=== PATIENT | female | born 1995 | race Hispanic/Latino ===

== ENCOUNTER 2019-09-16 16:09 | Emergency (ER) | payer SELFPAY ==
--- OUTSIDE RECORDS SUMMARY | 2019-09-16 16:14 | XMS REPORT ---
:1995 [facility] Address [address] [place] [address] [address] [place] [address] Care Team Providers Name Role Phone DR MAHESH LUDWIG Unavailable Unavailable DR RISHABH CASE Unavailable Unavailable , DR JOSE Unavailable Unavailable Problems This patient has no known problems. Allergies, Adverse Reactions, Alerts This patient has no known allergies or adverse reactions. Medications This patient has no known medications. Encounters Start End Encounter Admission Attending Care Care Encounter Date/Time Date/Time Type Type Clinicians Facility Department ID 2019-02-14 2019-02-14 [id number] 10:12:00 10:55:00 MAHESH MEDINA 2019-01-23 2019-01-26 Inpatient U [facility] [place] [id number] 20:50:00 13:57:00 BYRAM 2019-01-22 2019-01-22 [facility] [id number] 14:56:00 16:29:00 BYRAM 2019-01-09 2019-01-10 [facility] [id number] 20:53:00 01:17:00 BYRAM 2018-08-07 2018-08-07 Out[facility] [id number] 12:12:00 13:30:00 WASIM Results Test Description Test Time Test Comments Text Results Atomic Results Result Comments CBC (INCLUDES AUTOMATED DIFFERENTIAL)* 2019-01-25 06:57:00 Test Item Value Reference Range Comments WBC (test code=WBC) 16.2 10\S\3/uL 4.5-11.0 RBC (test code=RBC) 3.85 10\S\6/uL 4.30-5.70 HGB (test code=HBG) 8.6 g/dL 12.0-15.5 HCT (test code=HCT) 27.0 % 35.0-44.0 MCV (test code=MCV) 70.1 fL 81.0-99.0 MCH (test code=MCH) 22.3 pg 27.0-31.0 MCHC (test code=MCHC) 31.9 g/dL 32.0-36.0 RDW (test code=RDW) 15.4 % 11.5-14.5 PLT (test code=PLT) 251 10\S\3/uL 130-400 MPV (test code=MPV) 9.9 fL 9.4-12.4 NEUTROP # (test code=NE#) 11.2 10\S\3/uL 1.6-8.0 LYMPH # (test code=LY#) 3.4 10\S\3/uL 1.1-3.5 MONOCYTE # (test code=MO#) 1.1 10\S\3/uL 0.0-1.1 EOSINOPH # (test code=EO#) 0.4 10\S\3/uL 0.0-0.7 BASOPHIL # (test code=BA#) 0.1 10\S\3/uL 0.0-0.3 IG # (test code=IG#) 0.10 10\S\3/uL 0.00-0.06 NRBC # (test code=NRBC#) 0.00 10\S\3/uL 0.00-0.01 NEUTROPH % (test code=NE%) 69.2 % 35.0-73.0 LYMPH % (test code=LY%) 20.9 % 20.0-55.0 MONO % (test code=MO%) 6.6 % 2.5-10.0 EOSINOPH % (test code=EO%) 2.3 % 0.0-5.0 BASOPHIL % (test code=BA%) 0.4 % 0.0-2.0 IG % (test code=IG%) 0.6 % 0.0-0.8 NRBC% (test code=NRBC%) 0.0 % 0.0-0.2 MANDIFF (test code=WMDIFF) NO NO RBC MORPH (test code=WRBCMOR) NORMAL HEPATITIS B SURFACE ANTIGEN *WW*2019-01-24 20:30:00 Test Item Value Reference Range Comments HBSAG (test code=HBSAG) NON-REACTIVE NON-REACTIVE HIV *WW*2019-01-24 20:29:00 Test Item Value Reference Range Comments HIV-1,2 and p24 (test code=CHIV) NON-REACTIVE NON-REACTIVE SYPHILIS SCREENING WW2019-01-24 15:33:00 Test Item Value Reference Range Comments T PALLIDUM AB (test NON-REACTIVE NON-REACTIVE Due to instrument code=SYPHINT) issue, RPR test was performed SYPHC (test RPR test has been code=SYPHC) updated to Treponemal Immunoassay. Interpretation of results is similar DIRECT INFLUENZA A AND B [id number] 22:22:00 Test Item Value Reference Range Comments Direct Exam (test code=DE3) PRESUMPTIVE NEGATIVE FOR THE PRESENCE OF INFLUENZA ANTIGEN URINALYSIS WITH MICRO *WW*2019-01-23 22:18:00 Test Item Value Reference Range Comments COLOR (test code=COLU) YELLOW YELLOW CLARITY (test code=CLA) SLT HAZY CLEAR GLUCOSE UR (test code=UA GLUCOSE) NEGATIVE NEGATIVE BILI UR (test code=BILE) NEGATIVE NEGATIVE KETONES UR (test code=NAHED) NEGATIVE NEGATIVE SP GRAVITY (test code=SPGR) 1.020 1.005-1.030 PH UR (test code=PH) 7.0 4.5-8.0 PROTEIN UR (test code=PU) 1+ NEGATIVE UROBIL UR (test code=UROQ) 1.0 EU/dL 0.2-1.0 NITRITE UR (test code=NITRITE) NEGATIVE NEGATIVE BLOOD UR (test code=UA BLOOD) NEGATIVE NEGATIVE LEUK ES UR (test code=LEUK) NEGATIVE NEGATIVE WBC UR (test code=UWBC) 2 /HPF 0-5 RBC UR (test code=URBC) 1 /HPF 0-2 EPITH UR (test code=UEPC) FEW /LPF FEW BACTERIA UR (test code=UBACT) FEW /HPF NONE CAST UR (test code=CAST) /LPF NONE CRYSTAL UR (test code=CRYU) / LPF NONE MUCUS UR (test code=MUC) / HPF NONE AMORPH UR (test code=PORSCHE) FEW / HPF NONE TRICH UR (test code=UTRICH) /HPF NONE YEAST UR (test code=UY) /HPF NONE SPERM UR (test code=USPERM) /HPF NONE CBC (INCLUDES AUTOMATED DIFFERENTIAL)*[id number] 22:15:00 Test Item Value Reference Range Comments WBC (test code=WBC) 13.5 10\S\3/uL 4.5-11.0 RBC (test code=RBC) 4.30 10\S\6/uL 4.30-5.70 HGB (test code=HBG) 9.7 g/dL 12.0-15.5 HCT (test code=HCT) 29.9 % 35.0-44.0 MCV (test code=MCV) 69.5 fL 81.0-99.0 MCH (test code=MCH) 22.6 pg 27.0-31.0 MCHC (test code=MCHC) 32.4 g/dL 32.0-36.0 RDW (test code=RDW) 15.6 % 11.5-14.5 PLT (test code=PLT) 301 10\S\3/uL 130-400 MPV (test code=MPV) 10.1 fL 9.4-12.4 NEUTROP # (test code=NE#) 9.7 10\S\3/uL 1.6-8.0 LYMPH # (test code=LY#) 2.2 10\S\3/uL 1.1-3.5 MONOCYTE # (test code=MO#) 0.8 10\S\3/uL 0.0-1.1 EOSINOPH # (test code=EO#) 0.7 10\S\3/uL 0.0-0.7 BASOPHIL # (test code=BA#) 0.1 10\S\3/uL 0.0-0.3 IG # (test code=IG#) 0.06 10\S\3/uL 0.00-0.06 NRBC # (test code=NRBC#) 0.00 10\S\3/uL 0.00-0.01 NEUTROPH % (test code=NE%) 71.9 % 35.0-73.0 LYMPH % (test code=LY%) 16.1 % 20.0-55.0 MONO % (test code=MO%) 5.9 % 2.5-10.0 EOSINOPH % (test code=EO%) 5.3 % 0.0-5.0 BASOPHIL % (test code=BA%) 0.4 % 0.0-2.0 IG % (test code=IG%) 0.4 % 0.0-0.8 NRBC% (test code=NRBC%) 0.0 % 0.0-0.2 MANDIFF (test code=WMDIFF) NO NO RBC MORPH (test code=WRBCMOR) NORMAL THROAT [id number] 09:47:00 Test Item Value Reference Range Comments Culture Observations (test NO BETA HEMOLYTIC code=COB1) STREPTOCOCCUS ISOLATED U/S >14 WEEKS *OW*2018-08-07 13:23:28OBSTETRIC ULTRASOUND Location code: [id number] HISTORY: R10.2: PELVIC AND PERINEAL PAINGA by LMP: 14 weeks 3 daysGA by today's US: 15 weeks and 3 daysFindings:There is a single intrauterine in breech presentation. Estimatedfetal heart rate is 163 beats per minute. Amniotic fluidindex is 10.0 cm. Theplacenta is posterior/ fundal with grade 1 changes. Note is made of a 2.5 cmplacental penning[place]. There is no evidence of previa or abruption. The cervix isclosed and measures 3.3 cm. The maternal adnexa are unremarkable. Approximate sonographic age is 15 weeks and 3 days based upon thefollowing:BPD 3.0 cm 15 weeks 3 daysHC 11.3 cm 15 weeks 3 daysAC 9.8 cm 15 weeks 6 daysFL 1.7 cm 15 weeks 0 days ratios are within normal limits. weight estimateWeight: 125 gramsAnatomic survey is limited due to early gestational age. There is no grossabnormality of the intracranial contents, four-chamber heart, stomach, bilateral kidneys, urinary bladder, 3 vessel cord, cord insertion, spine, andextremities.IMPRESSION: 1. Single intrauterine with an approximate sonographic age of 15weeks and 3 days . 2. Limited anatomic survey with no abnormality identified.CHEM8+ i-STAT OW2018-08-07 13:09:00 Test Item Value Reference Range Comments SODIUM (test code=HELLEN) 137 mmol/L 138-146 POTASSIUM (test code=KI) 3.2 mmol/L 3.5-4.9 CHLORIDE (test code=CLI) 100 mmol/L 98-109 CA IONIZED (test code=ICAI) 1.12 mmol/L 1.12-1.32 GLUCOSE (test code=GLUI) 85 mg/dL 75-100 TCO2 (test code=TCO2) 26 mmol/L 24-29 BUN (test code=BUN1) 5 mg/dL 8-26 CREATININE (test code=CREAI) 0.5 mg/dL 0.6-1.3 ANION GAP (test code=GANG) 14.0 mmol/L HGB (test code=MHB) 11.6 g/dL 12.0-17.0 HCT (test code=MHCT) 34.0 % 38.0-51.0 INFLUENZA A AND B OW2018-08-07 13:06:00 Test Item Value Reference Range Comments INFLUENZ A (test code=INFA) NEGATIVE NEGATIVE INFLUENZ B (test code=INFB) NEGATIVE NEGATIVE URINALYSIS W/O MICROSCOPICOW2018-08-07 13:02:00 Test Item Value Reference Range Comments COLOR (test code=COLU) Yellow YELLOW CLARITY (test code=CLA) Clear CLEAR GLUCOSE UR (test code=UA Negative NEGATIVE GLUCOSE) BILI UR (test code=BILE) Negative NEGATIVE KETONES UR (test code=NAHED) Trace NEGATIVE SP GRAVITY (test code=SPGR) 1.025 1.005-1.030 PH UR (test code=PH) 7.0 4.5-8.0 PROTEIN UR (test code=PU) 1+ NEGATIVE NITRITE UR (test Negative NEGATIVE code=NITRITE) UROBIL UR (test code=GUROQ) 1.0 E.U./dL UROBIL UR (test code=GUROQC) UROBILINOGEN REFERENCE RANGE 0.2 - 1.0 EU/dL BLOOD UR (test code=UA Negative NEGATIVE BLOOD) LEUK ES UR (test code=LEUK) Negative NEGATIVE DIRECT STREP GROUP AOW2018-08-07 13:02:00 Test Item Value Reference Range Comments STREP A AG (test code=STREP) NEGATIVE NEGATIVE CBC (INCLUDES AUTOMATED DIFFERENTIAL) *2018-08-07 12:59:00 Test Item Value Reference Range Comments WBC (test code=WBC) 9.1 10\S\3/uL 4.5-11.0 RBC (test code=RBC) 4.22 10\S\6/uL 4.30-5.70 HGB (test code=HBG) 11.9 g/dL 12.0-15.5 HCT (test code=HCT) 35.1 % 35.0-44.0 MCV (test code=MCV) 83.1 fL 81.0-99.0 MCH (test code=MCH) 28.2 pg 27.0-31.0 MCHC (test code=MCHC) 33.9 g/dL 32.0-36.0 RDW (test code=RDW) 15.0 % 11.5-14.5 PLT (test code=PLT) 264 10\S\3/uL 130-400 MPV (test code=OMPV) 7.9 fL 6.2-10.2 NEUTROP # (test code=NE#) 7.4 10\S\3/uL 1.6-8.0 LYMPH # (test code=LY#) 1.2 10\S\3/uL 1.1-3.5 MID # (test code=GMID#) 0.5 10\S\3/uL 0.0-1.1 GRA % (test code=GRA%) 81.2 % 35.0-73.0 LYMPH % (test code=GLY%) 12.9 % 20.0-55.0 MID % (test code=GMID%) 5.9 % 0.0-10.0 CBC (INCLUDES AUTOMATED DIFFERENTIAL)*[id number] 07:14:00 Test Item Value Reference Range Comments WBC (test code=WBC) 17.8 10\S\3/uL 4.5-11.0 RBC (test code=RBC) 4.30 10\S\6/uL 4.30-5.70 HGB (test code=HBG) 9.6 g/dL 12.0-15.5 HCT (test code=HCT) 30.5 % 35.0-44.0 MCV (test code=MCV) 70.9 fL 81.0-99.0 MCH (test code=MCH) 22.3 pg 27.0-31.0 MCHC (test code=MCHC) 31.5 g/dL 32.0-36.0 RDW (test code=RDW) 15.4 % 11.5-14.5 PLT (test code=PLT) 265 10\S\3/uL 130-400 MPV (test code=MPV) 10.2 fL 9.4-12.4 NEUTROP # (test code=NE#) 13.7 10\S\3/uL 1.6-8.0 LYMPH # (test code=LY#) 2.6 10\S\3/uL 1.1-3.5 MONOCYTE # (test code=MO#) 1.3 10\S\3/uL 0.0-1.1 EOSINOPH # (test code=EO#) 0.1 10\S\3/uL 0.0-0.7 BASOPHIL # (test code=BA#) 0.0 10\S\3/uL 0.0-0.3 IG # (test code=IG#) 0.10 10\S\3/uL 0.00-0.06 NRBC # (test code=NRBC#) 0.00 10\S\3/uL 0.00-0.01 NEUTROPH % (test code=NE%) 77.0 % 35.0-73.0 LYMPH % (test code=LY%) 14.4 % 20.0-55.0 MONO % (test code=MO%) 7.2 % 2.5-10.0 EOSINOPH % (test code=EO%) 0.6 % 0.0-5.0 BASOPHIL % (test code=BA%) 0.2 % 0.0-2.0 IG % (test code=IG%) 0.6 % 0.0-0.8 NRBC% (test code=NRBC%) 0.0 % 0.0-0.2 MANDIFF (test code=WMDIFF) NO NO RBC MORPH (test code=WRBCMOR) NORMAL SYPHILIS SCREENING WW2017-03-04 00:04:00 Test Item Value Reference Range Comments T PALLIDIUM AB (test NON-REACTIVE NON-REACTIVE code=SYPHINT) SYPHC (test code=SYPHC) RPR test has been updated to Treponemal Immunoassay. Interpretation of results is similar HIV *WW*2017-03-03 23:53:00 Test Item Value Reference Range Comments HIV-1,2 and P24 (test code=CHIV) NON-REACTIVE NON-REACTIVE HEPATITIS B SURFACE ANTIGEN 2017-03-03 23:24:00 Test Item Value Reference Range Comments HBSAG (test code=HBSAG) NON-REACTIVE NON-REACTIVE URINALYSIS WITH MICRO *WW*2017-03-03 21:37:00 Test Item Value Reference Range Comments COLOR (test code=COLU) YELLOW YELLOW CLARITY (test code=CLA) SLT HAZY CLEAR GLUCOSE UR (test code=UA GLUCOSE) NEGATIVE NEGATIVE BILI UR (test code=BILE) NEGATIVE NEGATIVE KETONES UR (test code=NAHED) NEGATIVE NEGATIVE SP GRAVITY (test code=SPGR) 1.010 1.005-1.030 PH UR (test code=PH) 7.5 4.5-8.0 PROTEIN UR (test code=PU) NEGATIVE NEGATIVE UROBIL UR (test code=UROQ) 0.2 EU/dL 0.2-1.0 NITRITE UR (test code=NITRITE) NEGATIVE NEGATIVE BLOOD UR (test code=UA BLOOD) NEGATIVE NEGATIVE LEUK ES UR (test code=LEUK) 1+ NEGATIVE WBC UR (test code=UWBC) 6 /HPF 0-5 RBC UR (test code=URBC) 0 /HPF 0-2 EPITH UR (test code=UEPC) FEW /LPF FEW BACTERIA UR (test code=UBACT) FEW /HPF NONE CAST UR (test code=CAST) /LPF NONE CRYSTAL UR (test code=CRYU) / LPF NONE MUCUS UR (test code=MUC) / HPF NONE AMORPH UR (test code=PORSCHE) / HPF NONE TRICH UR (test code=UTRICH) /HPF NONE YEAST UR (test code=UY) /HPF NONE SPERM UR (test code=USPERM) /HPF NONE CBC (INCLUDES AUTOMATED DIFFERENTIAL)*[id number] 21:32:00 Test Item Value Reference Range Comments WBC (test code=WBC) 15.4 10\S\3/uL 4.5-11.0 RBC (test code=RBC) 4.32 10\S\6/uL 4.30-5.70 HGB (test code=HBG) 9.8 g/dL 12.0-15.5 HCT (test code=HCT) 30.5 % 35.0-44.0 MCV (test code=MCV) 70.6 fL 81.0-99.0 MCH (test code=MCH) 22.7 pg 27.0-31.0 MCHC (test code=MCHC) 32.1 g/dL 32.0-36.0 RDW (test code=RDW) 15.5 % 11.5-14.5 PLT (test code=PLT) 288 10\S\3/uL 130-400 MPV (test code=MPV) 10.0 fL 9.4-12.4 NEUTROP # (test code=NE#) 11.6 10\S\3/uL 1.6-8.0 LYMPH # (test code=LY#) 2.6 10\S\3/uL 1.1-3.5 MONOCYTE # (test code=MO#) 1.0 10\S\3/uL 0.0-1.1 EOSINOPH # (test code=EO#) 0.2 10\S\3/uL 0.0-0.7 BASOPHIL # (test code=BA#) 0.0 10\S\3/uL 0.0-0.3 IG # (test code=IG#) 0.06 10\S\3/uL 0.00-0.06 NRBC # (test code=NRBC#) 0.00 10\S\3/uL 0.00-0.01 NEUTROPH % (test code=NE%) 75.4 % 35.0-73.0 LYMPH % (test code=LY%) 16.6 % 20.0-55.0 MONO % (test code=MO%) 6.2 % 2.5-10.0 EOSINOPH % (test code=EO%) 1.2 % 0.0-5.0 BASOPHIL % (test code=BA%) 0.2 % 0.0-2.0 IG % (test code=IG%) 0.4 % 0.0-0.8 NRBC% (test code=NRBC%) 0.0 % 0.0-0.2 MANDIFF (test code=WMDIFF) NO NO RBC MORPH (test code=WRBCMOR) NORMAL URINALYSIS *WW*2017-02-18 03:37:00 Test Item Value Reference Range Comments COLOR (test code=COLU) YELLOW YELLOW CLARITY (test code=CLA) CLEAR CLEAR GLUCOSE UR (test code=UA GLUCOSE) NEGATIVE NEGATIVE BILI UR (test code=BILE) NEGATIVE NEGATIVE KETONES UR (test code=NAHED) NEGATIVE NEGATIVE SP GRAVITY (test code=SPGR) 1.020 1.005-1.030 PH UR (test code=PH) 7.0 4.5-8.0 PROTEIN UR (test code=PU) NEGATIVE NEGATIVE UROBIL UR (test code=UROQ) 0.2 EU/dL 0.2-1.0 NITRITE UR (test code=NITRITE) NEGATIVE NEGATIVE BLOOD UR (test code=UA BLOOD) NEGATIVE NEGATIVE LEUK ES UR (test code=LEUK) NEGATIVE NEGATIVE AUAM (test code=WAUAM) NO NO WID-U/S > 14 [id number] 15:29:36OBSTETRIC ULTRASOUND Location code: [id number] HISTORY: Supervision of otherwise normal pregnancyGAby LMP: 34 weeks 1 dayGA by first US: 36 weeks 1 dayGA by today's US: 36 weeks 2 daysFindings:There is a single intrauterine in vertex presentation. Estimatedfetal heart rate is 145 beats per minute. Amniotic fluid index is 22.9 cm. Theplacenta is anterior with grade 1 changes. There is no evidence of previa orabruption. The cervix is closed and measures 3.3 cm. The maternal adnexa areunremarkable. Approximate sonographic age is 36 weeks 2 days based upon the following:BPD 9.1 cm 36 weeks 5 daysHC 33.1 cm 37 weeks 5 daysAC 32.0 cm 36 weeks 0 daysFL 7.1 cm 36 weeks 2 days ratios are within normal limits. weight estimateWeight: 2900gramsWT%: 64% for 36 weeks 1 dayAnatomic survey reveals no abnormality of the intracranial contents,four-chamber heart, stomach, bilateral kidneys, urinary bladder, 3 vessel cord,cord insertion, spine, and extremities.IMPRESSION: 1. Single intrauterine in vertex presentation with an approximatesonographic age of 36 weeks 2 days and estimated due date of . 2. No abnormality identified.U/S >14 [id number] 15 :27:33EXAM: Obstetric Ultrasound CompleteLocation: A1 COMPARISON: NoneINDICATION : anatomy/surveyTECHNIQUE: Real-time sonography was performed transabdominally.DISCUSSION:There is a single living intrauterine fetus in cephalic presentation. Placentais anterior, Grade 1. There is no evidence of placental abruption nor placentaprevia. Cervix is closed, measuring 6 cm length. Amniotic fluid volume isabove the upper limit of normal, with SPENCER of 27.29cm.Maternal adnexa: Not imagedANATOMIC SURVEY:No gross abnormalities of the cranium, spine, mid face,4-chamberheart, stomach bubble, kidneys ,bladder, and 3-vessel cord. The abdominal cordinsertion is not well seen due to shadowing. lips are not imaged. One ofthe kidneys is not well seen secondary to positioning and shadowing. Fetalgender is male. Evaluation of the spine is limited by positioning. heart rate: 154 BPMAverage sonographic age of the fetus is 30 weeks 3 days with LU of 02/25/17based on the following:Biparietal diameter: 7.9cm=31 weeks 5 daysHead circumference: 28.4cm=31 weeks 1 dayAbdominal circumference: 27.2cm=31 weeks 2 daysFemur length : 5.7cm=29 weeks 6 daysFetal ratios are normal. FL/BPD=0.72FL/AC=0.21HC/AC= 1.04CI=0.79Menstrual age by established LU is 28 weeks 3 days.Estimated weight: 1661 grams. weight percentile: There is a 97% based on established LU of 03/15/17.IMPRESSION: 1. Single living intrauterine fetus in cephalic presentation at 30 weeks 3 dayssonographic age. weight is greater than 97th percentile. Polyhydramniosis noted, with SPENCER of 27.29. Follow-up is recommended.2. No anomaly is identified. One of the kidneys is not well seen due toshadowing and positioning. Evaluation of lips and spine and abdominalcord insertion is limited due to shadowing or positioning.3. No evidence for placenta previa nor abruption.
[2019-09-16 16:58] LABS: Urine Blood NEGATIVE (NEG); Urine Glucose NEGATIVE (NEG); Urine Protein 1+ (NEG); Urine Specific Gravity >1.030 (1.005-1.030)
[2019-09-16] MEDS ORDERED: ACETAMINOPHEN 500 MG TAB ONE (17:01)
[2019-09-16 17:11] LABS: Urine Bacteria 20-50 /HPF (<20); Urine Culture Reflex Order REFLEXED; Urine Mucus 2+ /HPF (NONE SEEN); Urine RBC <5 /HPF (NONE SEEN)
--- NOTE | 2019-09-16 17:21 | ER ---
Nurse's Notes [facility] Name: Sonia Abbasi Age: 24 yrs Sex: Female : 1995 Arrival Date: 09/16/2019 Time: 16:21 Bed 17 Private MD: Diagnosis: Influenza due to certain identified influenza viruses Presentation: 09/16 16:22 Presenting complaint: Patient states: body aching really bad, feels like shes running a fever, pain in rib cage that increases with cough since yesterday. Presenting complaint:. Transition of care: patient was not received from another setting of care. Onset of symptoms was September 16, 2019. Risk Assessment: Do you want to hurt yourself or someone else? Patient reports no desire to harm self or others. Initial Sepsis Screen: Does the patient meet any 2 criteria? Temp <36.0*C (96.8*F)) or > 38.3*C (100.9*F). HR > 90 bpm. Yes Does the patient have a suspected source of infection? No. Patient's initial sepsis screen is negative. Care prior to arrival: None. 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 - Social history:: Smoking status: Patient/guardian denies using tobacco, never smoked. - Ebola Screening: : No symptoms or risks identified at this time. Screenin:50 Abuse screen: Denies threats or abuse. Denies injuries from another. Nutritional ca1 screening: No deficits noted. Tuberculosis screening: No symptoms or risk factors identified. Fall Risk None identified. Assessment: 16:50 General: Appears in no apparent distress. comfortable, Behavior is calm, cooperative, ca1 appropriate for age, Reports fever for 12-24 hours. Pain: Complains of pain in all over Pain currently is 7 out of 10 on a pain scale. Neuro: Level of Consciousness is awake, alert, obeys commands, Oriented to person, place, time, situation. Cardiovascular: Heart tones S1 S2 present Capillary refill < 3 seconds Patient's skin is warm and dry. Respiratory: Reports cough that is since last night Airway is patent Respiratory effort is even, unlabored, Respiratory pattern is regular, symmetrical, Breath sounds are clear bilaterally. GI: Abdomen is round non-distended, Bowel sounds present X 4 quads. Abd is soft and non tender X 4 quads. : No deficits noted. No signs and/or symptoms were reported regarding the genitourinary system. EENT: Throat is clear is pink Reports nasal congestion since last night. Derm: Skin is intact, is healthy with good turgor, Skin is pink, warm \T\ dry. Musculoskeletal: Circulation, motion, and sensation intact. Capillary refill < 3 seconds, Range of motion: intact in all extremities. 17:25 Reassessment: Patient appears in no apparent distress at this time. Patient is alert, ca1 oriented x 3, equal unlabored respirations, skin warm/dry/pink. Vital Signs: 16:28 BP 125 / 68; Pulse 128; Resp 20; Temp 103.1(O); Pulse Ox 100% on R/A; vc 17:25 BP 119 / 71; Pulse 119; Resp 19; Temp 101.5(O); Pulse Ox 100% on R/A; ca1 ED Course: 16:21 Patient arrived in ED. vc 16:22 Jam[facility]id [facility]arela [facility]C [facility] la1 16:22 Hai Prather MD is Attending Physician. la1 16:26 Triage completed. vc 16:26 Arm band placed on. vc 16:41 Wandy Lovell, RN is Primary Nurse. ca1 16:50 Patient has correct armband on for positive identification. Bed in low position. Call ca1 light in reach. Side rails up X 1. Pulse ox on. NIBP on. 16:50 No provider procedures requiring assistance completed. Patient did not have IV access ca1 during this emergency room visit. Administered Medications: 17:01 Drug: Tylenol 1000 mg Route: PO; ca1 17:32 Follow up: Response: No adverse reaction; Temperature is decreased ca1 Outcome: 17:21 Discharge ordered by . la1 17:27 Discharged to home ambulatory, with family. ca1 17:27 Condition: stable 17:27 Discharge instructions given to patient, Instructed on discharge instructions, follow up and referral plans. medication usage, Demonstrated understanding of instructions, follow-up care, medications, Prescriptions given X 1. 17:31 Patient left the ED. ca1 Signatures: Jamshid Varela, NOELLE-C FEED RESEARCH AIDE-Cla1 Wandy Lovell RN RN ca1 Silvia Valdez RN RN vc
--- NOTE | 2019-09-16 17:22 | EDPHYS ---
Physician Documentation [facility] Name: Sonia Abbasi Age: 24 yrs Sex: Female : 1995 Arrival Date: 09/16/2019 Time: 16:21 Bed 17 Private MD: ED Physician Hai Prather HPI: 09/16 16:52 This 24 yrs old Female presents to ER via Ambulatory with complaints of Flu la1 Symptoms. 16:52 Onset: The symptoms/episode began/occurred yesterday. Associated signs and symptoms: la1 Pertinent positives: congestion, cough, earache, fever. Modifying factors: The patient symptoms are alleviated by nothing, the patient symptoms are aggravated by nothing. The patient has not experienced similar symptoms in the past. Pt reports onset of fever, congestion, cough since last night. 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 - Social history:: Smoking status: Patient/guardian denies using tobacco, never smoked. - Ebola Screening: : No symptoms or risks identified at this time. ROS: 16:53 Constitutional: + fevers Eyes: Negative for injury, pain, redness, and discharge, ENT: la1 +TITA ear pain Neck: Negative for injury, pain, and swelling, Cardiovascular: Negative for chest pain, palpitations, and edema, Respiratory: + cough Abdomen/GI: Negative for abdominal pain, nausea, vomiting, diarrhea, and constipation, Back: Negative for injury and pain, : Negative for injury, bleeding, discharge, and swelling, Neuro: Negative for headache, weakness, numbness, tingling, and seizure. Exam: 16:54 Constitutional: This is a well developed, well nourished patient who is awake, alert, la1 and in no acute distress. Head/Face: Normocephalic, atraumatic. Eyes: Pupils equal round and reactive to light, extra-ocular motions intact. Periorbital areas with no swelling, redness, or edema. ENT: Nares patent. No nasal discharge, no septal abnormalities noted. Tympanic membranes are normal and external auditory canals are clear. Oropharynx with no redness, swelling, or masses, exudates, or evidence of obstruction, uvula midline. Mucous membranes moist. Neck: Trachea midline, no thyromegaly or masses palpated, + cervical lymphadenopathy. Supple, full range of motion without nuchal rigidity, or vertebral point tenderness. No Meningismus. Chest/axilla: Normal chest wall appearance and motion. Nontender with no deformity. No lesions are appreciated. Cardiovascular: Regular rate and rhythm with a normal S1 and S2. No gallops, murmurs, or rubs. Normal PMI, no JVD. No pulse deficits. Respiratory: Lungs have equal breath sounds bilaterally, clear to auscultation No rales, rhonchi or wheezes noted. No increased work of breathing, no retractions or nasal flaring. Abdomen/GI: Soft, non-tender, with normal bowel sounds. No distension or tympany. No guarding or rebound. No evidence of tenderness throughout. MS/ Extremity: Pulses equal, no cyanosis. Neurovascular intact. Full, normal range of motion. Neuro: Awake and alert, GCS 15, oriented to person, place, time, and situation. Cranial nerves II-XII grossly intact. Motor strength 5/5 in all extremities. Sensory grossly intact. Cerebellar exam normal. Normal gait. Vital Signs: 16:28 BP 125 / 68; Pulse 128; Resp 20; Temp 103.1(O); Pulse Ox 100% on R/A; vc 17:25 BP 119 / 71; Pulse 119; Resp 19; Temp 101.5(O); Pulse Ox 100% on R/A; ca1 MDM: 16:58 Patient medically screened. la1 17:20 Data reviewed: vital signs, nurses notes, lab test result(s), and as a result, I will la1 discharge patient. Data interpreted: Pulse oximetry: on room air is 100 %. Interpretation: normal. Counseling: I had a detailed discussion with the patient and/or guardian regarding: the historical points, exam findings, and any diagnostic results supporting the discharge/admit diagnosis, lab results. 09/16 16:27 Order name: Flu; Complete Time: 17:13 la1 09/16 16:31 Order name: Strep; Complete Time: 17:13 la1 09/16 16:43 Order name: Urine Microscopic Only; Complete Time: 17:13 la1 09/16 16:43 Order name: Urine Microscopic Only bd 09/16 16:46 Order name: Urine Dipstick--Ancillary (enter results); Complete Time: 17:13 bd 09/16 16:46 Order name: Urine --Ancillary (enter results); Complete Time: 17:13 bd 09/16 16:31 Order name: Urine Dipstick-Ancillary (obtain specimen); Complete Time: 16:43 la1 09/16 16:31 Order name: Urine Test (obtain specimen); Complete Time: 16:43 la1 09/16 17:11 Order name: Throat Culture EDMS 09/16 17:13 Order name: Urine Culture EDMS Administered Medications: 17:01 Drug: Tylenol 1000 mg Route: PO; ca1 17:32 Follow up: Response: No adverse reaction; Temperature is decreased ca1 Disposition: 09/17 07:22 Co-signature as Attending Physician, Hai Prather MD. rn Disposition: 09/16/19 17:21 Discharged to Home. Impression: Influenza due to certain identified influenza viruses. - Condition is Stable. - Discharge Instructions: Influenza, Adult. - Prescriptions for Tamiflu 75 mg Oral Capsule - take 1 tablet by ORAL route every 12 hours for 5 days; 10 tablet. - Work release form, Medication Reconciliation Form, Thank You Letter form. - Follow up: Private Physician; When: 2 - 3 days; Reason: Recheck today's complaints, Re-evaluation by your physician. - Problem is new. - Symptoms have improved. Signatures: Dispatcher [employer] EDWA Hai Prather MD MD rn Jamshid Varela, DIRECTOR WORKFORCE MANAGEMENT-C DIRECTOR WORKFORCE MANAGEMENT-Cla1 Wandy Lovell RN RN ca1 Silvia Valdez RN RN vc Corrections: (The following items were deleted from the chart) 09/16 17:31 17:21 09/16/2019 17:21 Discharged to Home. Impression: Influenza due to certain ca1 identified influenza viruses. Condition is Stable. Forms are Medication Reconciliation Form, Thank You Letter, Antibiotic Education, Prescription Opioid Use. Follow up: Private Physician; When: 2 - 3 days; Reason: Recheck today's complaints, Re-evaluation by your physician. Problem is new. Symptoms have improved. la1
[2019-09-16 22:44] VITALS: O2SAT 100
[2019-09-16 22:45] VITALS: BP 119/71; TEMP 101.5
== END 2019-09-16 17:31 | disposition home or self-care (01) ==
LOC: ER 16:09
DX: J10.1 Influenza due to other identified influenza virus with other respiratory manifestations (principal); Z88.1 Allergy status to other antibiotic agents
CPT/HCPCS: 81003; 81015; 81025; 87070; 87081; 87086; 87088; 87804; 99283

== ENCOUNTER 2021-05-19 10:54 | Emergency (ER) | payer OTHER ==
--- OUTSIDE RECORDS SUMMARY | 2021-05-19 10:59 | XMS REPORT | Continuity of Care Document ---
:1995 Author Organization [facility] t Address [address] [place] [address] Care Team Providers Name Role Phone DR OZIEL Attending Clinician Unavailable DR EVIE Attending Clinician Unavailable DR MATHEW Attending Clinician Unavailable DR OZIEL Admitting Clinician Unavailable DR EVEI Admitting Clinician Unavailable DR MATHEW Admitting Clinician Unavailable Problems Condition Condition Condition Status Onset Resolution Last Treating Co mments Source Name Details Category Date Date Treatment Clinician Date 12WKS/VAG Diagnosis Active 2014-02-11 Memoria BLEEDING - 11:51:00 l 00:00: [place] 12WKS/VAG 00 BLEEDING Active 10/20/2013 [place] Obesity Problem Active 2019-01-23 Zach steven complicati 02:45:10 l ng Obesity [place] , complicati second ng trimester , second trimester Active Problem 01/23/2019 [facility] Supervisio Problem Active 2019-01-23 M emoria n of other 02:45:10 l high risk [place] pregnancie Supervisio s, second n of other trimester high risk pregnancie s, second trimester Active Problem 01/23/2019 [facility] Obesity Problem Active 2021-01-14 Zach steven complicati 03:02:37 l ng Obesity [place] , complicati third ng trimester , third trimester Active Problem 01/14/2021 [facility] Supervisio Problem Active 2021-01-14 M emoria n of other 03:02:37 l high risk [place] pregnancie Supervisio s, third n of other trimester high risk pregnancie s, third trimester Active Problem 01/14/2021 [facility] Encounter Problem Active 2017-01-19 Me moria for 02:45:26 l supervisio Kennedy n n of other Encounter normal for , supervisio second n of other trimester normal , second trimester Active Problem 01/19/2017 [facility] Allergies, Adverse Reactions, Alerts This patient has no known allergies or adverse reactions. Medications Ordered Filled Start Stop Current Ordering Indication Dosage Frequency Signature Comments Components Source Medication Medication Date Date Medication? Clinician (SIG) Name Name Erika Carmona Yes Bianca 1 tablet M emoria 3-29 Evie l 00:00: [place] 00 1 Yes 0 Memoria oral 10-20 Refill(s) l capsule 08:32: [place] 00 Saline No Amber 5 mL, Memoria Flush 0.9% 10-20 [place] Route: l 07:31: IVP, Drug Form: INJ, Dosing Weight 65.909, kg, PRN, PRN Line Flush, Start date: 10/20/13 1:31:00, Duration: 30 day, Stop date: 11/19/13 1:30:00([facility] as: BD Posiflush) Vital Signs Vital Name Observation Time Observation Value Comments Source Respitory Rate 2013-10-20 09:40:00 Memori al [place] Heart Rate 2013-10-20 09:40:00 [facility] [place] Temperature Oral (F) 2013-10-20 09:40:00 98.3 F [facility] [place] Diastolic (mm Hg) 2013-10-20 09:40:00 Mem orial [place] Systolic (mm Hg) 2013-10-20 09:40:00 Zach rial [place] Weight 2013-10-20 07:18:00 [facility] [place] Temperature Oral (F) 2013-10-20 07:18:00 98.2 F [facility] [place] Respitory Rate 2013-10-20 07:18:00 Memori al [place] Systolic (mm Hg) 2013-10-20 07:18:00 Zach rial [place] Heart Rate 2013-10-20 07:18:00 [facility] [place] Diastolic (mm Hg) 2013-10-20 07:18:00 Mem orial [place] Procedures This patient has no known procedures. Encounters Start End Encounter Admission Attending Care Care Encounter Source Date/Time Date/Time Type Type Clinicians Facility Department ID 2019-03-04 2019-03-04 Outpatient Sera Black [id number] [facility] 12:37:00 12:37:00 Fagbohun Fagbohun MD a lWorks MD PhD PA PhD PA 2019-02-14 2019-02-14 Emergency E OZIEL [facility] [id number] 10:12:00 10:55:00 [facility] 2019-01-23 2019-01-26 Inpatient U EVIE [facility] [place] [id number] 20:50:00 13:57:00 [facility] 2019-01-24 2019-01-24 Outpatient C Funsho C [place] [id number] e[facility]inic 15:03:00 15:03:00 Anderson Jefferson MD PhD PA PhD PA 2019-01-23 2019-01-23 Outpatient C Funsho C [place] [id number] [facility]inic 12:26:00 12:26:00 Anderson Jefferson MD PhD PA PhD PA 2019-01-22 2019-01-22 Outpatient Sera CASE [facility] [place] [id number] 14:56:00 16:29:00 [facility] 2019-01-22 2019-01-22 Outpatient C Funsho C [place] [id number] eClinic 09:40:00 09:40:00 Anderson Jefferson MD PhD PA PhD PA 2019-01-09 2019-01-10 Outpatient Bibi CASE [facility] [place] [id number] 20:53:00 01:17:00 [facility] 2018-09-05 2018-09-05 Outpatient C Funsho C [place] [id number] [facility]inic 11:01:00 11:01:00 Anderson Jefferson MD PhD PA PhD PA 2018-08-07 2018-08-07 Outpatient Bibi CARMONA [facility] [id number] 12:12:00 13:30:00 [facility] 2017-01-11 2017-01-11 Outpatient C Funsho C [place] [id number] eClinic 11:23:00 11:23:00 Anderson Jefferson MD PhD PA PhD PA 2017-01-06 2017-01-06 Outpatient C Funsho C [place] [id number] [facility]Clinic 10:31:00 10:31:00 Anderson Jefferson MD PhD PA PhD PA 2016-12-30 2016-12-30 Outpatient Sera Black [id number] [facility]Clinic 09:37:00 09:37:00 Anderson Jefferson MD PhD PA PhD PA 2013-10-20 2013-10-20 Outpatient [facility] [id number] [facility] 01:11:00 03:41:00 [place] Everson 00 l [place] Andreea [place] Results Test Description Test Time Test Comments Results Result Comments Source CBC (INCLUDES AUTOMATED DIFFERENTIAL)*WW 2019-01-25 06:57:00 Test Item Value Reference Range Interpretation Comme nts WBC (test code = WBC) 16.2 10\S\3/uL 4.5-11.0 H RBC (test code = RBC) 3.85 10\S\6/uL 4.30-5.70 L HGB (test code = HBG) 8.6 g/dL 12.0-15.5 L HCT (test code = HCT) 27.0 % 35.0-44.0 L MCV (test code = MCV) 70.1 fL 81.0-99.0 L MCH (test code = MCH) 22.3 pg 27.0-31.0 L MCHC (test code = MCHC) 31.9 g/dL 32.0-36.0 L RDW (test code = RDW) 15.4 % 11.5-14.5 H PLT (test code = PLT) 251 10\S\3/uL 130-400 MPV (test code = MPV) 9.9 fL 9.4-12.4 NEUTROP # (test code = NE#) 11.2 10\S\3/uL 1.6-8.0 H LYMPH # (test code = LY#) 3.4 10\S\3/uL 1.1-3.5 MONOCYTE # (test code = MO#) 1.1 10\S\3/uL 0.0-1.1 EOSINOPH # (test code = EO#) 0.4 10\S\3/uL 0.0-0.7 BASOPHIL # (test code = BA#) 0.1 10\S\3/uL 0.0-0.3 IG # (test code = IG#) 0.10 10\S\3/uL 0.00-0.06 H NRBC # (test code = NRBC#) 0.00 10\S\3/uL 0.00-0.01 NEUTROPH % (test code = NE%) 69.2 % 35.0-73.0 LYMPH % (test code = LY%) 20.9 % 20.0-55.0 MONO % (test code = MO%) 6.6 % 2.5-10.0 EOSINOPH % (test code = EO%) 2.3 % 0.0-5.0 BASOPHIL % (test code = BA%) 0.4 % 0.0-2.0 IG % (test code = IG%) 0.6 % 0.0-0.8 NRBC% (test code = NRBC%) 0.0 % 0.0-0.2 MANDIFF (test code = WMDIFF) NO NO RBC MORPH (test code = WRBCMOR) NORMAL HEPATITIS B SURFACE ANTIGEN *WW*2019-01-24 20:30:00 Test Item Value Reference Range Interpretation Comments HBSAG (test code = HBSAG) NON-REACTIVE NON-REACTIVE HIV *WW*2019-01-24 20:29:00 Test Item Value Reference Range Interpretation Comments HIV-1,2 and p24 (test code = NON-REACTIVE NON-REACTIVE CHIV) SYPHILIS SCREENING WW2019-01-24 15:33:00 Test Item Value Reference Range Interpretation Comments T PALLIDUM AB NON-REACTIVE NON-REACTIVE Due to instrum ent (test code = issue, RPR test SYPHINT) was performed SYPHC (test code RPR test has been = SYPHC) updated to Treponemal Immunoassay. Interpretation of results is similar DIRECT INFLUENZA A AND B [id number] 22:22:00 Test Item Value Reference Range Interpretation Comments Direct Exam (test PRESUMPTIVE NEGATIVE FOR code = DE3) THE PRESENCE OF INFLUENZA ANTIGEN URINALYSIS WITH MICRO *WW*2019-01-23 22:18:00 Test Item Value Reference Range Interpretation Comments COLOR (test code = COLU) YELLOW YELLOW CLARITY (test code = CLA) SLT HAZY CLEAR A GLUCOSE UR (test code = UA GLUCOSE) NEGATIVE NEGATIVE BILI UR (test code = BILE) NEGATIVE NEGATIVE KETONES UR (test code = NAHED) NEGATIVE NEGATIVE SP GRAVITY (test code = SPGR) 1.020 1.005-1.030 PH UR (test code = PH) 7.0 4.5-8.0 PROTEIN UR (test code = PU) 1+ NEGATIVE A UROBIL UR (test code = UROQ) 1.0 EU/dL 0.2-1.0 NITRITE UR (test code = NITRITE) NEGATIVE NEGATIVE BLOOD UR (test code = UA BLOOD) NEGATIVE NEGATIVE LEUK ES UR (test code = LEUK) NEGATIVE NEGATIVE WBC UR (test code = UWBC) 2 /HPF 0-5 RBC UR (test code = URBC) 1 /HPF 0-2 EPITH UR (test code = UEPC) FEW /LPF FEW BACTERIA UR (test code = UBACT) FEW /HPF NONE A CAST UR (test code = CAST) /LPF NONE CRYSTAL UR (test code = CRYU) / LPF NONE MUCUS UR (test code = MUC) / HPF NONE AMORPH UR (test code = PORSCHE) FEW / HPF NONE A TRICH UR (test code = UTRICH) /HPF NONE YEAST UR (test code = UY) /HPF NONE SPERM UR (test code = USPERM) /HPF NONE CBC (INCLUDES AUTOMATED DIFFERENTIAL)*[id number] 22:15:00 Test Item Value Reference Range Interpretation Comments WBC (test code = WBC) 13.5 10\S\3/uL 4.5-11.0 H RBC (test code = RBC) 4.30 10\S\6/uL 4.30-5.70 HGB (test code = HBG) 9.7 g/dL 12.0-15.5 L HCT (test code = HCT) 29.9 % 35.0-44.0 L MCV (test code = MCV) 69.5 fL 81.0-99.0 L MCH (test code = MCH) 22.6 pg 27.0-31.0 L MCHC (test code = MCHC) 32.4 g/dL 32.0-36.0 RDW (test code = RDW) 15.6 % 11.5-14.5 H PLT (test code = PLT) 301 10\S\3/uL 130-400 MPV (test code = MPV) 10.1 fL 9.4-12.4 NEUTROP # (test code = NE#) 9.7 10\S\3/uL 1.6-8.0 H LYMPH # (test code = LY#) 2.2 10\S\3/uL 1.1-3.5 MONOCYTE # (test code = MO#) 0.8 10\S\3/uL 0.0-1.1 EOSINOPH # (test code = EO#) 0.7 10\S\3/uL 0.0-0.7 BASOPHIL # (test code = BA#) 0.1 10\S\3/uL 0.0-0.3 IG # (test code = IG#) 0.06 10\S\3/uL 0.00-0.06 NRBC # (test code = NRBC#) 0.00 10\S\3/uL 0.00-0.01 NEUTROPH % (test code = NE%) 71.9 % 35.0-73.0 LYMPH % (test code = LY%) 16.1 % 20.0-55.0 L MONO % (test code = MO%) 5.9 % 2.5-10.0 EOSINOPH % (test code = EO%) 5.3 % 0.0-5.0 H BASOPHIL % (test code = BA%) 0.4 % 0.0-2.0 IG % (test code = IG%) 0.4 % 0.0-0.8 NRBC% (test code = NRBC%) 0.0 % 0.0-0.2 MANDIFF (test code = WMDIFF) NO NO RBC MORPH (test code = NORMAL WRBCMOR) THROAT [id number] 09:47:00 Test Item Value Reference Range Interpretation Comments Culture Observations NO BETA HEMOLYTIC (test code = COB1) STREPTOCOCCUS ISOLATED U/S >14 WEEKS *OW*2018-08-07 13:23:28OBSTETRIC ULTRASOUND Location code: [id number] HISTORY: R10.2: PELVIC AND PERINEAL PAINGA by LMP: 14 weeks 3 daysGA by today's US: 15 weeks and 3 daysFindings:There is a single intrauterine in breech presentation. Estimatedfetal heart rate is 163 beats per minute. Amniotic fluidindex is 10.0 cm. Theplacenta is posterior/fundal with grade 1 changes. Note is made [...] grossabnormality of the intracranial contents, four-chamber heart, stomach,bilateral kidneys, urinary bladder, 3 vessel cord, cord insertion, spine, andextremities.IMPRESSION: 1. Single intrauterine with an a pproximate sonographic age of 15weeks and 3 days . 2. Limited anatomic survey with no abnormality identified.CHEM8+ i-STAT OW2018-08-07 13:09:00 Test Item Value Reference Range Interpretation Comments SODIUM (test code = HELLEN) 137 mmol/L 138-146 L POTASSIUM (test code = KI) 3.2 mmol/L 3.5-4.9 L CHLORIDE (test code = CLI) 100 mmol/L 98-109 CA IONIZED (test code = ICAI) 1.12 mmol/L 1.12-1.32 GLUCOSE (test code = GLUI) 85 mg/dL 75-100 TCO2 (test code = TCO2) 26 mmol/L 24-29 BUN (test code = BUN1) 5 mg/dL 8-26 L CREATININE (test code = CREAI) 0.5 mg/dL 0.6-1.3 L ANION GAP (test code = GANG) 14.0 mmol/L HGB (test code = MHB) 11.6 g/dL 12.0-17.0 L HCT (test code = MHCT) 34.0 % 38.0-51.0 L INFLUENZA A AND B OW2018-08-07 13:06:00 Test Item Value Reference Range Interpretation Comments INFLUENZ A (test code = INFA) NEGATIVE NEGATIVE INFLUENZ B (test code = INFB) NEGATIVE NEGATIVE URINALYSIS W/O MICROSCOPICOW2018-08-07 13:02:00 Test Item Value Reference Range Interpretation Comments COLOR (test code = Yellow YELLOW COLU) CLARITY (test code = Clear CLEAR CLA) GLUCOSE UR (test Negative NEGATIVE code = UA GLUCOSE) BILI UR (test code = Negative NEGATIVE BILE) KETONES UR (test Trace NEGATIVE code = NAHED) SP GRAVITY (test 1.025 1.005-1.030 code = SPGR) PH UR (test code = 7.0 4.5-8.0 PH) PROTEIN UR (test 1+ NEGATIVE A code = PU) NITRITE UR (test Negative NEGATIVE code = NITRITE) UROBIL UR (test code 1.0 E.U./dL = GUROQ) UROBIL UR (test code UROBILINOGEN = GUROQC) REFERENCE RANGE 0.2 - 1.0 EU/dL BLOOD UR (test code Negative NEGATIVE = UA BLOOD) LEUK ES UR (test Negative NEGATIVE code = LEUK) DIRECT STREP GROUP AOW2018-08-07 13:02:00 Test Item Value Reference Range Interpretation Comments STREP A AG (test code = STREP) NEGATIVE NEGATIVE CBC (INCLUDES AUTOMATED DIFFERENTIAL) *2018-08-07 12:59:00 Test Item Value Reference Range Interpretation Comments WBC (test code = WBC) 9.1 10\S\3/uL 4.5-11.0 RBC (test code = RBC) 4.22 10\S\6/uL 4.30-5.70 L HGB (test code = HBG) 11.9 g/dL 12.0-15.5 L HCT (test code = HCT) 35.1 % 35.0-44.0 MCV (test code = MCV) 83.1 fL 81.0-99.0 MCH (test code = MCH) 28.2 pg 27.0-31.0 MCHC (test code = MCHC) 33.9 g/dL 32.0-36.0 RDW (test code = RDW) 15.0 % 11.5-14.5 H PLT (test code = PLT) 264 10\S\3/uL 130-400 MPV (test code = OMPV) 7.9 fL 6.2-10.2 NEUTROP # (test code = NE#) 7.4 10\S\3/uL 1.6-8.0 LYMPH # (test code = LY#) 1.2 10\S\3/uL 1.1-3.5 MID # (test code = GMID#) 0.5 10\S\3/uL 0.0-1.1 GRA % (test code = GRA%) 81.2 % 35.0-73.0 H LYMPH % (test code = GLY%) 12.9 % 20.0-55.0 L MID % (test code = GMID%) 5.9 % 0.0-10.0 CBC (INCLUDES AUTOMATED DIFFERENTIAL)*[id number] 07:14:00 Test Item Value Reference Range Interpretation Comments WBC (test code = WBC) 17.8 10\S\3/uL 4.5-11.0 H RBC (test code = RBC) 4.30 10\S\6/uL 4.30-5.70 HGB (test code = HBG) 9.6 g/dL 12.0-15.5 L HCT (test code = HCT) 30.5 % 35.0-44.0 L MCV (test code = MCV) 70.9 fL 81.0-99.0 L MCH (test code = MCH) 22.3 pg 27.0-31.0 L MCHC (test code = MCHC) 31.5 g/dL 32.0-36.0 L RDW (test code = RDW) 15.4 % 11.5-14.5 H PLT (test code = PLT) 265 10\S\3/uL 130-400 MPV (test code = MPV) 10.2 fL 9.4-12.4 NEUTROP # (test code = NE#) 13.7 10\S\3/uL 1.6-8.0 H LYMPH # (test code = LY#) 2.6 10\S\3/uL 1.1-3.5 MONOCYTE # (test code = MO#) 1.3 10\S\3/uL 0.0-1.1 H EOSINOPH # (test code = EO#) 0.1 10\S\3/uL 0.0-0.7 BASOPHIL # (test code = BA#) 0.0 10\S\3/uL 0.0-0.3 IG # (test code = IG#) 0.10 10\S\3/uL 0.00-0.06 H NRBC # (test code = NRBC#) 0.00 10\S\3/uL 0.00-0.01 NEUTROPH % (test code = NE%) 77.0 % 35.0-73.0 H LYMPH % (test code = LY%) 14.4 % 20.0-55.0 L MONO % (test code = MO%) 7.2 % 2.5-10.0 EOSINOPH % (test code = EO%) 0.6 % 0.0-5.0 BASOPHIL % (test code = BA%) 0.2 % 0.0-2.0 IG % (test code = IG%) 0.6 % 0.0-0.8 NRBC% (test code = NRBC%) 0.0 % 0.0-0.2 MANDIFF (test code = WMDIFF) NO NO RBC MORPH (test code = NORMAL WRBCMOR) SYPHILIS SCREENING WW2017-03-04 00:04:00 Test Item Value Reference Range Interpretation Comments T PALLIDIUM AB (test NON-REACTIVE NON-REACTIVE code = SYPHINT) SYPHC (test code = RPR test has been SYPHC) updated to Treponemal Immunoassay. Interpretation of results is similar HIV *WW*2017-03-03 23:53:00 Test Item Value Reference Range Interpretation Comments HIV-1,2 and P24 (test code = NON-REACTIVE NON-REACTIVE CHIV) HEPATITIS B SURFACE ANTIGEN *WW*2017-03-03 23:24:00 Test Item Value Reference Range Interpretation Comments HBSAG (test code = HBSAG) NON-REACTIVE NON-REACTIVE URINALYSIS WITH MICRO *WW*2017-03-03 21:37:00 Test Item Value Reference Range Interpretation Comments COLOR (test code = COLU) YELLOW YELLOW CLARITY (test code = CLA) SLT HAZY CLEAR A GLUCOSE UR (test code = UA GLUCOSE) NEGATIVE NEGATIVE BILI UR (test code = BILE) NEGATIVE NEGATIVE KETONES UR (test code = NAHED) NEGATIVE NEGATIVE SP GRAVITY (test code = SPGR) 1.010 1.005-1.030 PH UR (test code = PH) 7.5 4.5-8.0 PROTEIN UR (test code = PU) NEGATIVE NEGATIVE UROBIL UR (test code = UROQ) 0.2 EU/dL 0.2-1.0 NITRITE UR (test code = NITRITE) NEGATIVE NEGATIVE BLOOD UR (test code = UA BLOOD) NEGATIVE NEGATIVE LEUK ES UR (test code = LEUK) 1+ NEGATIVE A WBC UR (test code = UWBC) 6 /HPF 0-5 H RBC UR (test code = URBC) 0 /HPF 0-2 EPITH UR (test code = UEPC) FEW /LPF FEW BACTERIA UR (test code = UBACT) FEW /HPF NONE A CAST UR (test code = CAST) /LPF NONE CRYSTAL UR (test code = CRYU) / LPF NONE MUCUS UR (test code = MUC) / HPF NONE AMORPH UR (test code = PORSCHE) / HPF NONE TRICH UR (test code = UTRICH) /HPF NONE YEAST UR (test code = UY) /HPF NONE SPERM UR (test code = USPERM) /HPF NONE CBC (INCLUDES AUTOMATED DIFFERENTIAL)*[id number] 21:32:00 Test Item Value Reference Range Interpretation Comments WBC (test code = WBC) 15.4 10\S\3/uL 4.5-11.0 H RBC (test code = RBC) 4.32 10\S\6/uL 4.30-5.70 HGB (test code = HBG) 9.8 g/dL 12.0-15.5 L HCT (test code = HCT) 30.5 % 35.0-44.0 L MCV (test code = MCV) 70.6 fL 81.0-99.0 L MCH (test code = MCH) 22.7 pg 27.0-31.0 L MCHC (test code = MCHC) 32.1 g/dL 32.0-36.0 RDW (test code = RDW) 15.5 % 11.5-14.5 H PLT (test code = PLT) 288 10\S\3/uL 130-400 MPV (test code = MPV) 10.0 fL 9.4-12.4 NEUTROP # (test code = NE#) 11.6 10\S\3/uL 1.6-8.0 H LYMPH # (test code = LY#) 2.6 10\S\3/uL 1.1-3.5 MONOCYTE # (test code = MO#) 1.0 10\S\3/uL 0.0-1.1 EOSINOPH # (test code = EO#) 0.2 10\S\3/uL 0.0-0.7 BASOPHIL # (test code = BA#) 0.0 10\S\3/uL 0.0-0.3 IG # (test code = IG#) 0.06 10\S\3/uL 0.00-0.06 NRBC # (test code = NRBC#) 0.00 10\S\3/uL 0.00-0.01 NEUTROPH % (test code = NE%) 75.4 % 35.0-73.0 H LYMPH % (test code = LY%) 16.6 % 20.0-55.0 L MONO % (test code = MO%) 6.2 % 2.5-10.0 EOSINOPH % (test code = EO%) 1.2 % 0.0-5.0 BASOPHIL % (test code = BA%) 0.2 % 0.0-2.0 IG % (test code = IG%) 0.4 % 0.0-0.8 NRBC% (test code = NRBC%) 0.0 % 0.0-0.2 MANDIFF (test code = WMDIFF) NO NO RBC MORPH (test code = NORMAL WRBCMOR) URINALYSIS *WW*2017-02-18 03:37:00 Test Item Value Reference Range Interpretation Comments COLOR (test code = COLU) YELLOW YELLOW CLARITY (test code = CLA) CLEAR CLEAR GLUCOSE UR (test code = UA GLUCOSE) NEGATIVE NEGATIVE BILI UR (test code = BILE) NEGATIVE NEGATIVE KETONES UR (test code = NAHED) NEGATIVE NEGATIVE SP GRAVITY (test code = SPGR) 1.020 1.005-1.030 PH UR (test code = PH) 7.0 4.5-8.0 PROTEIN UR (test code = PU) NEGATIVE NEGATIVE UROBIL UR (test code = UROQ) 0.2 EU/dL 0.2-1.0 NITRITE UR (test code = NITRITE) NEGATIVE NEGATIVE BLOOD UR (test code = UA BLOOD) NEGATIVE NEGATIVE LEUK ES UR (test code = LEUK) NEGATIVE NEGATIVE AUAM (test code = WAUAM) NO NO WID-U/S > 14 [id number] 15:29:36OBSTETRIC ULTRASOUND Location code: [id number] HISTORY: Supervision of otherwise normal pregnancyGAby LMP: [...] Single intrauterine in vertex presentation with an ap proximatesonographic age of 36 weeks 2 days and estimated due date of 03/01/17. 2. No abnormality identified.U/S >14 [id number] 15:27:33EXAM: Obstetric Ultrasound CompleteLocation: A1 COMPARISON: NoneINDICATION: anatomy/surveyTECHNIQUE: Real-time sonography was performed transabdominally.DISCUSSION:There is a single living intrauterine fetus in cephalic presentation. Placentais anterior, Grade 1. There is no evidence of placental abruption nor placentaprevia. Cervix is closed, measuring 6 cm length. Amniotic fluid volume isabove the upper limit of normal, with SPENCER of 27.29cm.Maternal adnexa: Not imagedANATOMIC SURVEY:No gross abnormalities of the cranium, spine, mid face,4-chamberheart, stomach bubble, kidneys,bladder, and 3-vessel cord. The abdominal cordinsertion is not well seen due to shadowing. lips are not imaged. One ofthe kidneys is not well seen secondary to positioning and shadowing. Fetalgender is male. Evaluation of the spine is limited by positioning. heart rate: 154 BPMAverage sonographic age of the fetus is 30 weeks 3 days with LU of 02/25/17based on the following:Biparietal diameter: 7.9cm = 31 weeks 5 daysHead circumference: 28.4cm = 31 weeks 1 dayAbdominal circumference: 27.2cm = 31 weeks 2 daysFemur length: 5.7cm = 29 weeks 6 daysFetal ratios are normal. FL/BPD = 0.72FL/AC = 0.21HC/AC = 1.04CI = 0.79Menstrual age by established LU is 28 weeks 3 days.Estimated weight: 1661 grams. weight percentile: There is a 97% based on established LU of 03/15/17.IMPRESSION: 1. Single living intrauterine fetus in cephalic presentation at 30 weeks 3 dayssonographic age. weight is greater than 97th percentile. Polyhydramniosis noted, with SPENCER of 27.29. Follow-upis recommended.2. No anomaly is identified. One of the kidneys is not well seen due toshadowing and positioning. Evaluation of lips and spine and abdominalcord insertion is limited due to shadowing or positioning.3. No evidence for placenta previa nor abruption.[id number] 07:30:0027 [facility] [id number] 07:30:008.9[facility]annCHEMISTRY 2013-10-20 07:30:86324Osudkisf UgkswfgWRMMTXKHP5304-83-09 07:30:003.5[facility] [id number] 07:30:0046[facility] OncglieFFSDGDGBT9440-21-24 07:30:0020[facility] [id number] 07:30:0062[facility] [place] [id number] 07:30:000.2[facility] [id number] 07:30:003.6 [facility] [id number] 07:30:47804Zfqclssu HermannCHEMISTRY 2013-10-20 07:30:0010[facility] EppqsswNOCNQSTFC6810-22-10 07:30:000.6[facility] [id number] 07:30:0087[facility] [id number] 07:30:0017[facility] GiebehfWRBUVHCZA1403-93-64 07:30:004.7[facility] LTQRYQGDF4505-62-32 07:30:000.7[facility] QtpdofuHQXPORBFY7875-10-24 07:30:0012.6 [facility] KqvpoagBNSRKVSOCO1919-01-51 07:30:0013.2[facility] HermannHEMATOLOGY 2013-10-20 07:30:007.9[facility] PdwcmzqAEICCMIFPJ9897-74-51 07:30:36430Rsujuvdg LsjjwcgKUZTCYCCIG7425-98-10 07:30:00 Test Item Value Reference Range Interpretation Comments MCH (test code = MCH) 27.3 pg 27.0-31.0 N [facility] HlltocvMXKBHOIRWB0816-81-43 07:30:0033.1[facility] HermannHEMATOLOGY 2013-10-20 07:30:0037.4[facility] HljwavcJKJDFJJRGF9878-44-79 07:30:0082.5[facility] BypdafzAXCHUIQIPL5453-22-17 07:30:0012.4[facility] ZanvxxrAOQLPNSUJY2064-87-98 07:30:004.54[facility] XebbvwoUASEFNHEMW0043-93-47 07:30:0016.6[facility] EMKVSNKXQK9520-02-46 07:30:005.7[facility] ScpfsvmVRZPJKILFR8841-08-34 07:30:00 19.6[facility] NcjlronERMCLVHJTX6894-85-60 07:30:000.4[facility] HermannHEMATOLOGY 2013-10-20 07:30:000.6[facility] OwkaqziVXVQQQFNOI4384-89-92 07:30:0073.7[facility] WezfvmjXYOHORMDNI6079-38-47 07:30:003.2[facility] BxbleinJJCTIDISUK8382-04-04 07:30:000.9[facility] UshzgztJDFFGDMFDU4282-26-61 07:30:000.1[facility] WASJDPKEBT6036-66-72 07:30:0012.2[facility] FnnloniXAWESUTALS9155-70-72 07:30:00 0.1[facility] NesuxkhSZGRLVCTWU8521-56-19 07:30:00Yellow *NA*(10/20/2013 01:30:00) [facility] AidmcbjSLSVEGZDHL3411-31-18 07:30:00 Test Item Value Reference Range Interpretation Comments UA Spec Grav (test code = UA Spec 1.020 1 N Grav) [facility] RnmrqxuMPSJZRFWJR4188-23-33 07:30:00Negative (10/20/2013 01:30:00) [facility] CvinfqlAJUYCSLQZQ1445-74-64 07:30:00Negative (10/20/2013 01:30:00) [facility] HznffqqJMEZGEBXZF1572-23-42 07:30:00 Test Item Value Reference Range Interpretation Comments UA pH (test code = UA pH) 7.5 1 5.0-8.0 N [facility] ImbbftoLYCLYZTGFD0872-59-36 07:30:00Cloudy *ABN*(10/20/2013 01:30:00) [facility] LjvbrfbZPAWIHVTAA4163-64-25 07:30:00Negative (10/20/2013 01:30:00) [facility] OksadxqNQVNGEJSOJ6333-17-24 07:30:00Negative *NA*(10/20/2013 01:30:00) [facility] YoqancnKHAMHTDMEK2414-75-85 07:30:00Negative *NA*(10/20/2013 01:30:00) [facility] MxkeylkENCJMHZNCI9461-57-62 07:30:00Performed (10/20/2013 01:30:00) [facility] IkpyojyHFUOXLUDBY7733-38-24 07:30:00Negative (10/20/2013 01:30:00) [facility] JyihnuvHHHYDEGJOO2931-00-43 07:30:000.2[facility] HermannURINALYSIS 2013-10-20 07:30:00Large *ABN*(10/20/2013 01:30:00)[facility] HermannCHEMISTRY 2013-10-20 07:30:4351126Arcolrjr JszzetoORTMYDIIX7668-48-71 07:30:008.2[facility] FidfigqCQXXIBQXR1011-87-20 07:30:08039BjxxxrxuFlor Urbina
[2021-05-19 12:10] LABS: Absolute Lymphocytes (CBC) 1.4 K/uL (0.7-4.9); Basophils % 0.5 % (0-1.3); Hematocrit 34.4 % (36.0-45.0); Lymphocytes % 9.4 % (15.3-44.8); MPV 7.8 fL (7.6-11.3); RBC Red Blood Cell Count 4.18 M/uL (3.86-4.86)
[2021-05-19 12:44] LABS: BUN Blood Urea Nitrogen 7 mg/dL (7-18); Bicarbonate 27 mmol/L (21-32); Glucose Level 89 mg/dL (74-106); HCG, Quantitative 7660 mIU/mL (1-3); Potassium 3.8 mmol/L (3.5-5.1); Sodium Level 138 mmol/L (136-145)
[2021-05-19] MEDS ORDERED: NA CHLORIDE 0.9% 1,000 ML ONE (12:50)
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
[2021-05-19 14:48] LABS: Urine Blood 1+ (Negative); Urine Glucose Negative (Negative); Urine Protein Negative (Negative); Urine pH 7.5 (5.0-7.0)
--- NOTE | 2021-05-19 14:48 | ER ---
Nurse's Notes [facility] Name: Sonia Abbasi Age: 25 yrs Sex: Female : 1995 Arrival Date: 05/19/2021 Time: 10:56 Bed 5 Private MD: Diagnosis: Fall (on) (from) unspecified stairs and steps;17 weeks gestation of Presentation: 05/19 11:33 Chief complaint: Patient states: Fell down stairs this morning around 0900. C/o lower ss back pain, suprapubic discomfort and vaginal spotting that began 1 hour ago. Pt reports she is 16 weeks . Coronavirus screen: Client denies travel out of the [place] in the last 14 days. Ebola Screen: Patient denies exposure to infectious person. Patient denies travel to an Ebola-affected area in the 21 days before illness onset. Initial Sepsis Screen: Does the patient meet any 2 criteria? No. Patient's initial sepsis screen is negative. Does the patient have a suspected source of infection? No. Patient's initial sepsis screen is negative. Risk Assessment: Do you want to hurt yourself or someone else? Patient reports no desire to harm self or others. Onset of symptoms was May 19, 2021. 11:33 Method Of Arrival: Ambulatory ss 11:33 Acuity: PAO 3 ss SPEECH AND LANGUAGE SPECIALIST: 14:39 7, Full Term 4, Premature 0, 2, Living 4 fidel 15:12 LMP N/A - currently jd3 Historical: - Allergies: 11:37 Amoxicillin; ss - Home Meds: 11:37 None [Active]; ss - PMHx: 11:37 None; ss - PSHx: 11:37 Tonsillectomy; ss - Immunization history:: Adult Immunizations up to date. - Social history:: Smoking status: Patient denies any tobacco usage or history of. - Family history:: not pertinent. Screenin:19 Abuse screen: Denies threats or abuse. Nutritional screening: No deficits noted. jd3 Tuberculosis screening: No symptoms or risk factors identified. Fall Risk Ambulatory Aid- None/Bed Rest/Nurse Assist (0 pts). Gait- Normal/Bed Rest/Wheelchair (0 pts) Mental Status- Oriented to own ability (0 pts). Total Cortez Fall Scale indicates No Risk (0-24 pts). Assessment: 13:17 General: Appears in no apparent distress. uncomfortable, Behavior is calm, cooperative, jd3 appropriate for age. Pain: Complains of pain in right lower quadrant and left lower quadrant Quality of pain is described as crampy. Neuro: Level of Consciousness is awake, alert, obeys commands, Oriented to person, place, time, situation. Cardiovascular: Denies chest pain, Capillary refill < 3 seconds Patient's skin is warm and dry. Respiratory: Airway is patent Respiratory effort is even, unlabored, Respiratory pattern is regular, symmetrical, Denies cough, shortness of breath. GI: No signs and/or symptoms were reported involving the gastrointestinal system. : Reports vaginal bleeding that is spotty. EENT: No signs and/or symptoms were reported regarding the EENT system. Derm: Skin is intact, Skin is dry, Skin is normal, Skin temperature is warm. Musculoskeletal: Circulation, motion, and sensation intact. Range of motion: intact in all extremities. 14:35 Reassessment: Patient appears in no apparent distress at this time. No changes from jd3 previously documented assessment. Patient and/or family updated on plan of care and expected duration. Pain level reassessed. Patient is alert, oriented x 3, equal unlabored respirations, skin warm/dry/pink. 15:11 Reassessment: Patient appears in no apparent distress at this time. Patient and/or jd3 family updated on plan of care and expected duration. Pain level reassessed. Patient is alert, oriented x 3, equal unlabored respirations, skin warm/dry/pink. reported understanding of discharge instructions. even and steady gait upon discharge. Vital Signs: 11:33 BP 103 / 78; Pulse 113; Resp 16; Temp 98; Pulse Ox 99% on R/A; Weight 104.33 kg; Height ss 5 ft. 1 in. (154.94 cm); Pain 8/10; 15:11 Pulse 100; Resp 16 S; Pulse Ox 98% on R/A; jd3 11:33 Body Mass Index 43.46 (104.33 kg, 154.94 cm) ED Course: 10:56 Patient arrived in ED. ds1 11:37 Triage completed. ss 11:37 Arm band placed on right wrist. ss 11:40 Tono Fonseca, TOMER is Primary Nurse. jd3 11:43 Lb Low MD is Attending Physician. [facility] 12:02 Inserted saline lock: 20 gauge in right antecubital area, using aseptic technique. jd3 Blood collected. 12:53 US OB Limited In Process Unspecified. EDDE 13:21 Patient has correct armband on for positive identification. Placed in gown. Bed in low jd3 position. Call light in reach. Pulse ox on. NIBP on. 15:11 No provider procedures requiring assistance completed. IV discontinued, intact, jd3 bleeding controlled, No redness/swelling at site. Pressure dressing applied. Administered Medications: 13:17 Drug: NS 0.9% 1000 ml Route: IV; Rate: 1 bolus; Site: right antecubital; jd3 14:15 Follow up: Response: No adverse reaction; IV Status: Completed infusion jd3 Outcome: 14:47 Discharge ordered by . [facility] 15:12 Discharged to home ambulatory, with family. jd3 15:12 Condition: stable 15:12 Discharge instructions given to patient, Instructed on discharge instructions, follow up and referral plans. Demonstrated understanding of instructions, follow-up care. 15:12 Patient left the ED. jd3 Signatures: Dispatcher [employer] EDDE Lb Low MD MD cha Sanford, Demi ds1 Haleigh Bustamante RN RN ss Davies, Jonathon, RN RN jd3 Corrections: (The following items were deleted from the chart) 18:21 15:11 Reassessment: Patient appears in no apparent distress at this time. Patient jd3 and/or family updated on plan of care and expected duration. Pain level reassessed. Patient is alert, oriented x 3, equal unlabored respirations, skin warm/dry/pink. jd3
--- NOTE | 2021-05-19 14:48 | EDPHYS ---
Physician Documentation [facility] Name: Sonia Abbasi Age: 25 yrs Sex: Female : 1995 Arrival Date: 05/19/2021 Time: 10:56 Bed 5 Private MD: DANIE Physician Lb Low HPI: 05/19 14:39 This 25 yrs old Female presents to ER via Ambulatory with complaints of fidel Vaginal Bleeding - > 12 Wks Preg. 14:39 The patient presents with pelvic pain. Onset: The symptoms/episode began/occurred just fidel prior to arrival. Modifying factors: The symptoms are alleviated by remaining still, the symptoms are aggravated by movement. Associated signs and symptoms: The patient has no apparent associated signs or symptoms. Severity of symptoms: At their worst the symptoms were mild, in the emergency department the symptoms are unchanged. The patient is sexually active, reportedly has a single partner. The patient has not experienced similar symptoms in the past. FILE CLERK: 14:39 7, Full Term 4, Premature 0, 2, Living 4 fidel 15:12 LMP N/A - currently jd3 Historical: - Allergies: 11:37 Amoxicillin; ss - Home Meds: 11:37 None [Active]; ss - PMHx: 11:37 None; ss - PSHx: 11:37 Tonsillectomy; ss - Immunization history:: Adult Immunizations up to date. - Social history:: Smoking status: Patient denies any tobacco usage or history of. - Family history:: not pertinent. ROS: 14:39 Constitutional: Negative for fever, chills, and weight loss, Eyes: Negative for injury, fidel pain, redness, and discharge, ENT: Negative for injury, pain, and discharge, Neck: Negative for injury, pain, and swelling, Cardiovascular: Negative for chest pain, palpitations, and edema, Respiratory: Negative for shortness of breath, cough, wheezing, and pleuritic chest pain, Back: Negative for injury and pain, : Negative for injury, bleeding, discharge, and swelling, MS/Extremity: Negative for injury and deformity, Skin: Negative for injury, rash, and discoloration, Neuro: Negative for headache, weakness, numbness, tingling, and seizure, Psych: Negative for depression, anxiety, suicide ideation, homicidal ideation, and hallucinations, Allergy/Immunology: Negative for hives, rash, and allergies, Endocrine: Negative for neck swelling, polydipsia, polyuria, polyphagia, and marked weight changes. 14:39 Abdomen/GI: Positive for abdominal distension. Exam: 14:39 Constitutional: This is a well developed, well nourished patient who is awake, alert, fidel and in no acute distress. Head/Face: Normocephalic, atraumatic. Eyes: Pupils equal round and reactive to light, extra-ocular motions intact. Lids and lashes normal. Conjunctiva and sclera are non-icteric and not injected. Cornea within normal limits. Periorbital areas with no swelling, redness, or edema. ENT: Nares patent. No nasal discharge, no septal abnormalities noted. Tympanic membranes are normal and external auditory canals are clear. Oropharynx with no redness, swelling, or masses, exudates, or evidence of obstruction, uvula midline. Mucous membranes moist. Neck: Trachea midline, no thyromegaly or masses palpated, and no cervical lymphadenopathy. Supple, full range of motion without nuchal rigidity, or vertebral point tenderness. No Meningismus. Chest/axilla: Normal chest wall appearance and motion. Nontender with no deformity. No lesions are appreciated. Cardiovascular: Regular rate and rhythm with a normal S1 and S2. No gallops, murmurs, or rubs. Normal PMI, no JVD. No pulse deficits. Respiratory: Lungs have equal breath sounds bilaterally, clear to auscultation and percussion. No rales, rhonchi or wheezes noted. No increased work of breathing, no retractions or nasal flaring. Back: No spinal tenderness. No costovertebral tenderness. Full range of motion. Skin: Warm, dry with normal turgor. Normal color with no rashes, no lesions, and no evidence of cellulitis. MS/ Extremity: Pulses equal, no cyanosis. Neurovascular intact. Full, normal range of motion. Neuro: Awake and alert, GCS 15, oriented to person, place, time, and situation. Cranial nerves II-XII grossly intact. Motor strength 5/5 in all extremities. Sensory grossly intact. Cerebellar exam normal. Normal gait. Psych: Awake, alert, with orientation to person, place and time. Behavior, mood, and affect are within normal limits. 14:39 Abdomen/GI: Inspection: distension, Bowel sounds: normal, Palpation: nontender, Liver: no appreciated palpable abnormalities, Hernia: not appreciated. Vital Signs: 11:33 BP 103 / 78; Pulse 113; Resp 16; Temp 98; Pulse Ox 99% on R/A; Weight 104.33 kg; Height ss 5 ft. 1 in. (154.94 cm); Pain 8/10; 15:11 Pulse 100; Resp 16 S; Pulse Ox 98% on R/A; jd3 11:33 Body Mass Index 43.46 (104.33 kg, 154.94 cm) ss MDM: 11:43 Patient medically screened. fidel 14:46 Differential diagnosis: ovarian cyst, placenta previa, urinary tract infection. Data fidel reviewed: vital signs, nurses notes, lab test result(s), radiologic studies, ultrasound. Data interpreted: databases software consultant: rate is 113 beats/min, rhythm is regular, Pulse oximetry: on room air is 99 %. Counseling: I had a detailed discussion with the patient and/or guardian regarding: the historical points, exam findings, and any diagnostic results supporting the discharge/admit diagnosis, lab results, radiology results, the need for outpatient follow up, for definitive care, an OB/Gyne specialist. 05/19 11:44 Order name: Abo/rh Typing; Complete Time: 14:15 [facility] 05/19 11:44 Order name: Basic Metabolic Panel; Complete Time: 14:15 [facility] 05/19 11:44 Order name: CBC with Diff; Complete Time: 14:15 [facility] 05/19 11:44 Order name: Quantitative Hcg; Complete Time: 14:15 [facility] 05/19 14:47 Order name: Urine Dipstick-Ancillary EDMT 05/19 11:44 Order name: IV Saline Lock; Complete Time: 12:02 [facility] 05/19 11:44 Order name: Labs collected and sent; Complete Time: 12:02 [facility] 05/19 11:44 Order name: NPO; Complete Time: 11:46 [facility] 05/19 11:44 Order name: US OB Limited; Complete Time: 14:15 [facility] Administered Medications: 13:17 Drug: NS 0.9% 1000 ml Route: IV; Rate: 1 bolus; Site: right antecubital; jd3 14:15 Follow up: Response: No adverse reaction; IV Status: Completed infusion jd3 Disposition Summary: 05/19/21 14:47 Discharge Ordered Location: Home fidel Problem: new fidel Symptoms: have improved fidel Condition: Stable fidel Diagnosis - Fall (on) (from) unspecified stairs and steps fidel - 17 weeks gestation of fidel Followup: fidel - With: Private Physician - When: 2 - 3 days - Reason: Recheck today's complaints, Continuance of care, Re-evaluation by your physician Discharge Instructions: - Discharge Summary Sheet fidel - Abdominal Pain During fidel - Care fidel - Vaginal Bleeding During , Second Trimester fidel - Pelvic Pain, Female, [id number]-[id number] fidel Forms: - Medication Reconciliation Form fidel - Thank You Letter fidel - Antibiotic Education fidel - Prescription Opioid Use fidel Signatures: Dispatcher [employer] EDLb Dunn MD MD cha Smirch, Shelby, RN RN Tono Marcos RN RN jd3
[2021-05-19 15:25] VITALS: BP 103/78; TEMP 98
[2021-05-19 15:31] VITALS: O2SAT 98
== END 2021-05-19 15:12 | disposition home or self-care (01) ==
LOC: ER 10:54
DX: O26.892 Other specified pregnancy related conditions, second trimester (principal); Z3A.17 17 weeks gestation of pregnancy; W10.9XXA Fall (on) (from) unspecified stairs and steps, initial encounter; Z88.1 Allergy status to other antibiotic agents
CPT/HCPCS: 85025; 80048; 36415; 86900; 86901; 84702; 81003; 76815; 96360; 99284; J7030

== ENCOUNTER 2021-10-11 10:50 | Inpatient (IN) | payer OTHER ==
[2021-10-11] MEDS ORDERED: OXYTOCIN/LR 20 UNIT/1,000 ML BAG IV ONE (13:05)
--- OUTSIDE RECORDS SUMMARY | 2021-10-11 13:06 | XMS REPORT | Continuity of Care Document ---
:1995 Author Organization [facility] t Address [address] [place] [address] [address] [place] [address] Care Team Providers Name Role Phone DR OZIEL Attending Clinician Unavailable EVIE, Attending Clinician Unavailable DR MATHEW Attending Clinician Unavailable DR OZIEL Admitting Clinician Unavailable EVIE, Admitting Clinician Unavailable , Admitting Clinician Unavailable Problems This patient has no known problems. Allergies, Adverse Reactions, Alerts This patient has no known allergies or adverse reactions. Medications This patient has no known medications. Procedures This patient has no known procedures. Encounters Start End Encounter Admission Attending Care Care Encounter Source Date/Time Date/Time Type Type Clinicians Facility Department ID 2019-02-14 2019-02-14 [id number] [address] 10:12:00 10:55:00 [facility] 2019-01-23 2019-01-26 Inpatient [facility] [place] [id number] 20:50:00 13:57:00 [facility] 2019-01-22 2019-01-22 Outpatient C [facility] [place] [id number] 14:56:00 16:29:00 [facility] 2019-01-09 2019-01-10 [facility] [id number] 20:53:00 01:17:00 [facility] 2018-08-07 2018-08-07 Outpatient E [facility] [id number] 12:12:00 13:30:00 [facility] Results Test Description Test Time Test Comments Results Result Comments Source CBC (INCLUDES AUTOMATED DIFFERENTIAL)* 2019-01-25 06:57:00 Test [...] is similar DIRECT INFLUENZA A AND B [id number] 22:22:00 Test Item Value Reference Range Interpretation [...] = USPERM) /HPF NONE CBC (INCLUDES AUTOMATED DIFFERENTIAL)*[id number] 22:15:00 Test Item Value Reference Range Interpretation [...] MORPH (test code = NORMAL WRBCMOR) THROAT [id number] 09:47:00 Test Item Value Reference Range Interpretation Comments Culture Observations NO BETA HEMOLYTIC (test code = COB1) STREPTOCOCCUS ISOLATED U/S >14 WEEKS *OW*2018-08-07 13:23:28OBSTETRIC ULTRASOUND Location code: [id number] HISTORY: R10.2: PELVIC AND PERINEAL PAINGA by [...] GMID%) 5.9 % 0.0-10.0 CBC (INCLUDES AUTOMATED DIFFERENTIAL)*[id number] 07:14:00 Test Item Value Reference Range Interpretation [...] = USPERM) /HPF NONE CBC (INCLUDES AUTOMATED DIFFERENTIAL)*[id number] 21:32:00 Test Item Value Reference Range Interpretation [...] = WAUAM) NO NO WID-U/S > 14 [id number] 15:29:36OBSTETRIC ULTRASOUND Location code: [id number] HISTORY: Supervision of otherwise normal pregnancyGAby LMP: [...] of 03/01/17. 2. No abnormality identified.U/S >14 [id number] 15:27:33EXAM: Obstetric Ultrasound CompleteLocation: A1 COMPARISON: NoneINDICATION: [...]
[2021-10-11] MEDS ORDERED: PROMETHAZINE INJ 25 MG/ML AMP IM PRN (13:18)
[2021-10-11] MEDS ORDERED: CARBOPROST TROME 250 MCG/ML IM PRN (13:18)
[2021-10-11] MEDS ORDERED: BUTORPHANOL 1 MG/ML INJ IV PRN (13:18)
[2021-10-11] MEDS ORDERED: Ringers Lactate 1,000 ML IV PRN (13:18)
[2021-10-11] MEDS ORDERED: METHYLERGONOVINE 0.2MG/ML AMP IM PRN (13:18)
[2021-10-11 13:45] LABS: Urine Appearance CLOUDY (Clear); Urine Bilirubin NEGATIVE (Negative); Urine Blood TRACE (Negative); Urine Color DK YELLOW (Yellow); Urine Glucose NEGATIVE (Negative); Urine Protein NEGATIVE (Negative); Urine Specific Gravity 1.015 (1.005-1.030)
[2021-10-11 13:59] LABS: Urine Microscopic Reflex ORDER UMIC
[2021-10-11] MEDS ORDERED: Ringers Lactate 1,000 ML IV SCH (14:00)
[2021-10-11] MEDS ORDERED: OXYTOCIN/LR 20 UNIT/1,000 ML BAG IV SCH ×2 (14:00→16:00)
[2021-10-11 14:02] LABS: Urine Bacteria 20-50 /HPF (<20); Urine Mucus 2+ /HPF (NONE SEEN); Urine RBC <5 /HPF (NONE SEEN)
[2021-10-11] MEDS ORDERED: LIDOCAINE 1% MPF 30 ML VIAL ONE (14:03)
[2021-10-11 14:11] LABS: Absolute Lymphocytes (CBC) 1.6 K/uL (0.7-4.9); Hematocrit 34.1 % (36.0-45.0); Lymphocytes % 13.8 % (15.3-44.8); MPV 8.4 fL (7.6-11.3); RBC Red Blood Cell Count 4.63 M/uL (3.86-4.86)
[2021-10-11] MEDS ORDERED: ACETAMINOPHEN 500 MG TAB PO PRN (15:29)
[2021-10-11] MEDS ORDERED: DOCUSATE NA/SENNA CONC 1 TAB PO PRN (15:29)
[2021-10-11] MEDS ORDERED: BISACODYL 10 MG RECTAL SUPP PR PRN (15:29)
[2021-10-11] MEDS ORDERED: Oxycodone HCl/Acetaminophen 1 TAB TAB PO PRN (15:29)
[2021-10-11] MEDS ORDERED: DIPHENHYDRAMINE 25 MG TAB/CAP PO PRN (15:29)
--- NOTE | 2021-10-11 18:14 | PREOPHP ---
Date of Admission: 10/11/2021 History Of Present Illness: This is a 26-year-old, 5, para 4, at 39 weeks, came to my office in early labor and noted to be 4 cm, ada irregularly. She went home, got ready, came to the hospital. She is now 5 cm, 70%, -1 station, rupture of membranes, clear fluid. FHTs normal, reacti ve. Was started on light Pitocin augmentation. She is Rh positive, immune to rubella, negative COVI D, negative strep. Full labor talk given. When she gets a good labor, anticipate rapid progress. F ull labor talk given. Family History: On the paternal side of the family, there was hypertension. There were also myocard ial infarctions on that side of the family. Mother side of family has diabetes. Past Surgical History: The patient has had her tonsils removed. Allergies: SHE IS ALLERGIC TO AMOXICILLIN. Medications: No medicines prior to admission other than vitamins and iron. Social History: Does not smoke. Physical Examination: HEENT: Clear. Pupils equal, round, reactive to light and accommodation. Conjunctivae well perfused . No oral, lingual, or buccal lesions. Chest and Lungs: Clear. Heart: Without murmurs, thrills, heaves, or rubs. Breasts: Without masses on previous visits. Abdomen: Obese. Extremities: Clear. Pelvic: As stated. Assessment/plan: Anticipate vaginal delivery later this afternoon. TWAN/TRUDY Voice ID: [id number]
--- NOTE | 2021-10-11 18:20 | PN ---
The patient is on 4 milliunits of Pitocin, ada regularly. She is now about 8 cm, still -1 st ation, 90% effaced, and the baby is occiput posterior. She will do pelvic rocks. I think if the bab y rotates, we will have delivery fairly quickly. FHT still looked good. No major decelerations. Th e patient is doing well. TWAN/TRUDY Voice ID: [id number] Report ID: [id number]
[2021-10-11 18:24] LABS: RPR (Rapid Plasma Reagin) NON-REACT (NON-REACT)
--- NOTE | 2021-10-11 18:41 | OP ---
Surgeon: Cristian Tran MD Procedure In Detail: This is a 26-year-old, 5, para 4, all boys, 39 weeks by dates, came int o the office in early labor, noted to be 4 cm, 60% effaced, vertex, -1 station, sent to Labor and [facility]. At that point, she was 5 to 5.5 cm. Rupture of membranes, clear fluid. Light Pitocin augmen tation. Went to complete very rapidly. Used Lamaze breathing techniques to best advantage. Second stage of 5 minutes or less. Spontaneous vaginal delivery of an estimated 7.5 pounds male , Apg ars 9 and 9. No episiotomy. No laceration. Schultze delivery of the placenta, which was inspected and noted to be intact and normal. 300 cc or less estimated blood loss. Rh positive, immune to rube lla, negative strep, negative COVID. Tolerated all procedures well. Final Diagnoses: Term intrauterine at 39 weeks, spontaneous labor, vaginal delivery. TWAN/TRUDY Voice ID: [id number] Report ID: [id number]
[2021-10-11 19:40] VITALS: BMI 44.6
[2021-10-11] MEDS ORDERED: Ringers Lactate 1,000 ML IV ONE (20:10)
[2021-10-12] MEDS: Oxycodone HCl/Acetaminophen 1 TAB TAB PO PRN ×2 (00:16→07:15)
[2021-10-12] MEDS: IBUPROFEN 600 MG TAB PO PRN ×2 (06:04→15:34)
[2021-10-12] MEDS ORDERED: INFLUENZA VACCINE (for 6+ mo) 0.5 ML DOSE IMVAC ONE (08:00)
[2021-10-12] MEDS ORDERED: FAMOTIDINE 20 MG TAB PO SCH (09:00)
[2021-10-12 16:11] VITALS: BP 114/70; TEMP 97.4
[2021-10-12] MEDS ORDERED: Tdap (Diph,Pertuss(Acell),Tet Vac) 0.5 ML SYR IMVAC ONE (17:36)
--- NOTE | 2021-10-13 08:26 | DS ---
Date of Discharge: 10/12/2021 Hospital Course: 26-year-old, 5, para 4, came in at 39 weeks in labor, subsequently delivere d quickly of a 7-pound 8-ounce male , Apgars 9 and 9. No episiotomy. No laceration. Schultze delivery of the placenta. Estimated blood loss 300 cc or less. Placenta inspected and noted to be intact and normal. Rh positive. Immune to Rubella. Negative strep. , afebrile, ambulati ng, voiding. Lochia was normal. She will be dismissed later today to report back to my office in 6 weeks for followup. To report any temperature elevation of 100 degrees or greater, severe pain, heav y bleeding, or any other type of abnormality. Tdap, flu shot, and COVID immunizations discussed and encouraged again. The patient was encouraged to get a family member to pick her up this afternoon, b ut she may not have a family member. She is not taking any kind of narcotics. She is ambulating. S he has no stitches, so if necessary she can probably drive herself home, but I told her it would be b julia for a family member or a friend to come and get her. Full dismissal instructions. Final Diagnoses: Term intrauterine at 39 weeks, vaginal delivery. Immunizations offered. TWAN/TRUDY Voice ID: [id number] Report ID: [id number]
[2021-10-13 19:17] LABS: HBsAG Nonreactive (Nonreactive)
== END 2021-10-12 17:56 | disposition home or self-care (01) | DRG 807 ==
LOC: 2ND-WC 13:02
PROVIDERS: ADMIT Specialist; ATTEND Specialist
PROC: 10E0XZZ Delivery of Products of Conception, External Approach (ICD-10-PCS; principal; 2021-10-11)
PROC: 10907ZC Drainage of Amniotic Fluid, Therapeutic from Products of Conception, Via Natural or Artificial Opening (ICD-10-PCS; 2021-10-11)
DX: O80 Encounter for full-term uncomplicated delivery (principal); Z37.0 Single live birth; Z3A.39 39 weeks gestation of pregnancy; Z23 Encounter for immunization; Z20.822 Contact with and (suspected) exposure to COVID-19
CPT/HCPCS: 36415; 81003; 81015; 85025; 86592; 86901; 87086; 87088; 87340; 90471; J2210; J2590; J7120; Q2035; U0003

== ENCOUNTER 2023-04-26 12:41 | Emergency (ER) | payer OTHER ==
--- OUTSIDE RECORDS SUMMARY | 2023-04-26 12:50 | XMS REPORT | Continuity of Care Document ---
:1995 Author Organization [facility] t Address [address] [facility] [address] [place] [address] Care Team Providers Name Role Phone DR BIANCA CASE Primary Care Physician Unavailable CHRIS ROYAL Attending Clinician Unavailable DR EMELYN STEWART Attending Clinician Unavailable Chris Royal MD Attending Clinician Bonifacio Dejesus MD Attending Clinician Scooby Cruz CRNA Attending Clinician 2, [facility] Attending Clinician Unavailable CHRISTEN KNAPP Attending Clinician Unavailable Christen Knapp MD Attending Clinician Doctor Unassigned, [place] Attending Clinician Unavailable Pob, [facility] Main Attending Clinician Unavailable Edwin Rosario NP Attending Clinician Ultrasound, Ang-Mfm Attending Clinician Unavailable Bob Rosas MD Attending Clinician BOB ROSAS Attending Clinician Unavailable BOB ROSAS Attending Clinician Unavailable EDWIN ROSARIO Attending Clinician Unavailable KIMBER GALEANA Attending Clinician Unavailable RITA Attending Clinician Unavailable DR MAHESH LUDWIG Attending Clinician Unavailable DR BIANCA CASE Attending Clinician Unavailable DR DAMON CARMONA Attending Clinician Unavailable DR EMELYN STEWART Admitting Clinician Unavailable CHRIS ROYAL Admitting Clinician Unavailable Chris Royal MD Admitting Clinician RITA Admitting Clinician Unavailable DR MAHESH LUDWIG Admitting Clinician Unavailable EVIE, DR KEATING Admitting Clinician Unavailable , DR JOSE Admitting Clinician Unavailable Payers Payer Name Policy Type Policy Number Effective Date Expiration Date Mikel FLORES [id number] 2020 00:00:00 0775 [id number] 2023 00:00:00 Problems Condition Condition Condition Status Onset Resolution Last Treating Co mments Source Name Details Category Date Date Treatment Clinician Date Disease Active U nivers depression depression 6-16 it y of 00:00: [place] 00 [facility] Branch Oligohydra Oligohydra Disease Active U nivers mnios in mnios in 4-27 ity of third third 00:00: [place] trimester, trimester, 00 Me dical single or single or Bran ch unspecifie unspecifie d fetus d fetus Liveborn Liveborn Disease Active Unive rs infant, of , of 4-27 it y of beasley beasley 00:00: Mary cardona , , 00 Me dical born in born in [facility] hospital by vaginal by vaginal delivery delivery Pelvic Pelvic Disease Active Univers pain in pain in 4-20 ity of 00:00: Mary cardona 00 [facility] Morbid Morbid Disease Active Univers obesity obesity 4-06 ity of with body with body 00:00: Mary cardona mass index mass index 00 Me dical of of Branch 40.0-49.9 40.0-49.9 Insufficie Insufficie Disease Active U nivers nt nt 4-06 ity of 00:00: [place] care in care in 00 [facility] Branch trimester trimester Encounter Encounter Disease Active Uni vers for tubal for tubal 4-06 ity of ligation ligation 00:00: [place] counseling counseling 00 [facility] High risk High risk Disease Active 2021-10 Uni vers , , 0-07 it y of antepartum [place] [facility] Nausea and Nausea and Disease Active 2021-10 U nivers vomiting vomiting 0-07 ity of during during 00:00: [place] 00 Medi mando prior to prior to Branch 22 weeks 22 weeks gestation gestation Obesity Obesity Disease Active Univers affecting affecting 1-24 [place] 00:[place] in third in third 00 Medica l trimester trimester Bran ch 12WKS/VAG 12WKS/VAG Diagnosis Active 2014-02-11 Memoria BLEEDING BLEEDING 10-20 11:51:00 l Active 00:00: [place] 10/20/2013 00 [facility] [place] Miscarriag Miscarriag Disease Active Overview : Univers e e 9-18 Formattin ity of 00:00: g of this [place] 00 note Medical might be Branch different from the original. Medical record received. DOS- 3. Beta hcg- 6168.50. Transvagi nal US- Conclusio n: demise. Single IUP at 8 weeks with noted pole, slightly deformed gestation al sac and small amount of subchorio genet hemorrhag e. No cardiac activity. Negative UPT on 3- in clinic. Obesity Obesity Problem Active 2019-01-23 Me moria complicati complicati 02:45:10 l ng ng [place] , , second second trimester trimester Active Problem 01/23/2019 [facility] Supervisio Supervisi Problem Active 2019-01-23 Memoria n of other on of 02:45:10 l high risk other high Her valencia pregnancie risk s, second pregnancie trimester s, second trimester Active Problem 01/23/2019 [facility] Obesity Obesity Problem Active 2021-01-14 Me moria complicati complicati 03:02:37 l ng ng [place] , , third third trimester trimester Active Problem 01/14/2021 [facility] Supervisio Supervisi Problem Active 2021-01-14 Memoria n of other on of 03:02:37 l high risk other high Her valencia pregnancie risk s, third pregnancie trimester s, third trimester Active Problem 01/14/2021 [facility] Encounter Encounter Problem Active 2017-01-19 Memoria for for 02:45:26 [facility] other normal normal , , second second trimester trimester Active Problem 01/19/2017 [facility] Allergies, Adverse Reactions, Alerts Allergy Allergy Status Severity Reaction(s) Onset Inactive Treating Comm ents Source Name Type Date Date Clinician COCOA DRUG Active Unknown-Cmnt 2019-0 Univ ers INGREDI 11-08 ity of 00:00: [place] 00 Medical Branch Hawks Propensi Active Unknown - Unive rs ty to See comments 11-08 ity of adverse 00:00: [place] reaction 00 Medical s Branch Chocolat DA Active Unknown [facility] e Flavor -19 Medical 00:00: Center 00 Amoxicil DA Active Unknown [facility] henry 03-13 Medical 00:00: Center 00 AMOXICIL DRUG Active Hives Univers HENRY INGREDI 06-21 ity of 00:00: [place] 00 Medical Branch Amoxicil Propensi Active Hives Univer s henry ty to 06-21 ity of adverse 00:00: [place] reaction Medical s [place] Social History Social Habit Start Date Stop Date Quantity Comments Source ASSERTION 2022-06-13 University of 00:00:00 [place] Medical Leslie History [facility] o f Alcohol Frequency [facility] edical Branch History [facility] o f Alcohol Std [place] Medical Drinks Branch History [facility] o f Alcohol Binge [place] Medic al [place] Alcohol intake 2023-03-31 2023-03-31 Ex-drinker [facility] 00:00:00 00:00:00 (finding) [facility] Exposure to 2023-01-30 2023-02-09 Not sure [facility] SARS-CoV-2 00:00:00 10:41:00 [facility] (event) [place] Alcohol Comment 2022-07-22 2022-07-22 special occasions Un iversity of 00:00:00 00:00:00 [facility] Tobacco use and 2013-06-21 2013-06-21 Smokeless tobacco Un iversity of exposure 00:00:00 00:00:00 non-user [facility] Sex Assigned At [birth year] Universit y of 00:00:00 00:00:00 [facility] Smoking Status Start Date Stop Date Source Never smoked tobacco [facility] Medications Ordered Filled Start Stop Current Ordering Indication Dosage Frequency Signature Comments Components Source Medication Medication Date Date Medication? Clinician (SIG) Name Name NUVARING Yes [id number] 1{each} Insert 1 Univers 0.12-0.015 6-16 Each into ity of mg/24 hr 00:00: vagina [place] vaginal 00 once every Medica l insert month. Branch Insert vaginally and leave in place for 3 consecutiv e weeks, then remove for 1 week. SERTraline 0 Yes [id number] 50mg Take 1 U nivers (ZOLOFT) 50 6-16 tablet by ity of mg tablet 00:00: [place] 00 the Medical morning. Branch rho(D) 0 Yes 300ug 300 mcg, Univer s immune 4 Intramuscu ity of globulin 02:28: lar, ONCE, [place] (RHOGAM) 14 For 1 Medical syringe 300 dose, Branch mcg Conditiona l, Routine HYDROcodone 0 Yes 1{tbl} 1 tablet, Univers -acetaminop 02-10 Oral, ity of hen (NORCO 02:28: Q6HPRN, [place] 5) 5-325 mg 09 Starting Medi mando tablet 1 on [facility] tablet 02/09/23 at 2127, Until Discontinu ed, Routine, Pain (scale 7-10) ibuprofen 0 Yes 600mg 600 mg, [facility] ers (IBU) 02-10 Oral, ity of tablet 600 02:28: Q6HPRN, [place] mg 09 Starting Medical on [facility] Branch 02/09/23 at 2127, Until Discontinu ed, Routine, Pain (scale 4-6) acetaminoph 0 Yes 650mg 650 mg, Un [place] en 02-10 Oral, ity of (TYLENOL) 02:28: Q6HPRN, [place] tablet 650 09 Starting Medic al mg on [facility] Branch 02/09/23 at 2127, Until Discontinu ed, Routine, Pain (scale 1-3) diphenhydrA 0 Yes 25mg 25 mg, Univ ers MINE 28 Oral, ity of (BENADRYL) 02:28: Q6HPRN, [place] tablet 25 09 Starting Medica l mg on [facility] Branch 02/09/23 at 2127, Until Discontinu ed, Routine, Sleep, Itching ondansetron 2022-0 Yes 4mg 4 mg, Slow Univers (ZOFRAN 28 IV Push, ity of (PF)) 02:28: Q8HPRN, [place] injection 4 09 Starting Medi mando mg on [facility] Branch 02/09/23 at 2128, Until Discontinu ed, Routine, Nausea and Vomiting (N/V) simethicone Yes 160mg 160 mg, Un [place] (GAS RELIEF 02-10 Oral, ity of (SIMETHICON 02:28: PC+HSPRN, [place] E)) 09 Starting Medical chewable on [facility] tablet 160 02/09/23 at mg 2127, Until Discontinu ed, Routine, Gas docusate Yes 200mg 200 mg, Unive rs (COLACE) 02-10 Oral, ity of capsule 200 02:28: QDAILYPRN, [place] mg 09 Starting Medical on [facility] Branch 02/09/23 at 2127, Until Discontinu ed, Routine, Constipati on magnesium Yes 30mL 30 mL, Univer s hydroxide 02-10 Oral, ity of (MILK OF :28: QDAILYPRN, [place] MAGNESIA) 09 Starting Medica l 400 mg/5 mL on [facility] suspension 02/09/23 at 30 mL 2127, Until Discontinu ed, Routine, Constipati on benzocaine- Yes Topical, Un [place] menthol 02-10 PRN, ity of (DERMOPLAST 02:28: [place] 20-0.5 % 09 on [facility] Medical topical 02/09/23 at Leslie spray 2127, Until Discontinu ed, Routine, Perineum discomfort witch Eri Yes Topical, Un [place] (TUCKS) 50 02-10 Q4HPRN, ity of % topical 02:27: [place] pad 55 on [facility] Medical 02/09/23 at Leslie 2126, Until Discontinu ed, Routine, rectal/hem orrhoidal pain oxytocin 2022- No 300mL/h 300 mL/hr, Univers (PITOCIN) 02-1028 IV ity of 30 units in 01:40: 12:06 Infusion, [place] NS 500 mL 48 :29 SEE-INSTRU Medi mando IV infusion CTIONS, Branc h Starting on [facility] 02/09/[address] at 300 mL/hr for 1 hr then 150 mL/hr for 1 hr. For post delivery uterotonic .
acetaminoph Yes 650mg 650 mg, Un lakes[place]ia en 4-28 Oral, ity of (TYLENOL) 01:00: Q6HPRN, [place] tablet 650 00 Starting Medic al mg on [place] Branch 02/09/23 at 1999, Until Discontinu ed, Routine, Pain (scale 1-3) 2022-0 Yes [id number] 1{tbl} Take 1 U nivers vitamin 4-28 tablet by ity of w/FA tablet 00:00: mouth in [place] 00 the Medical morning. Branch docusate 0 Yes [id number] 200mg Take 2 Un [place] 100 mg 4-28 capsules ity of capsule 00:00: by mouth [place] 00 once daily Medical as needed Branch for Constipati on. ferrous 2022-0 Yes [id number] 325mg Take 1 Uni vers sulfate 325 4-28 tablet by ity of mg (65 mg 00:00: [place] iron) 00 the Medical tablet morning Branch and 1 tablet in the evening. ibuprofen 2022-0 Yes [id number] 600mg Take 1 U nivers 600 mg 4-28 tablet by ity of tablet 00:00: mouth [place] 00 every 6 Medical (six) Branch hours as needed (Pain). Take with food or milk. 2022-0 Yes [id number] 1{tbl} Take 1 U nivers vitamin 4-28 tablet by ity of w/FA tablet 00:00: [place] in [place] 00 the Medical morning. Branch docusate 0 Yes [id number] 200mg Take 2 Un lakeshia 100 mg 4-28 capsules ity of capsule 00:00: by mouth [place] 00 once daily Medical as needed Branch for Constipati on. ferrous 2022-0 Yes [id number] 325mg Take 1 Uni vers sulfate 325 4-28 tablet by ity of mg (65 mg 00:00: [place] iron) 00 the Medical tablet morning Branch and 1 tablet in the evening. ibuprofen 2022-0 Yes [id number] 600mg Take 1 U nivers 600 mg 4-28 tablet by ity of tablet 00:00: mouth [place] 00 every 6 Medical (six) Branch hours as needed (Pain). Take with food or milk. 2022-0 2022- No [id number] 1{tbl} Take 1 Univers vitamin 4-28 06-15 tablet by ity of w/FA tablet 00:00: 00:00 mouth in [place] :00 the Medical morning. Branch docusate 2022- No [id number] 200mg Take 2 U nivers 100 mg 02-10 capsules ity of capsule 00:00: 00:00 by mouth [place] 00 :00 once daily Medical as needed Branch for Constipati on. ferrous 2022- No [id number] 325mg Take 1 Un [place] sulfate 325 02-10 tablet by it y of mg (65 mg 00:00: 00:00 mouth in [place] iron) 00 :00 the Medical tablet morning Branch and 1 tablet in the evening. ibuprofen 2022- No [id number] 600mg Take 1 Univers 600 mg 02-10 tablet by ity of tablet 00:00: 00:00 mouth [place] 00 :00 every 6 Medical (six) Branch hours as needed (Pain). Take with food or milk. lidocaine-e 2022- No Epidural, Univers pinephrine 02-09 ONCE INTRA it y of (XYLOCAINE 23:27: 02:47 PROCEDURE, [place] W/EPINEPHRI 00 :38 Starting [facility]) 1.5 on [facility] Branch %-1:200,000 02/09/23 at injection 1827, Until Discontinu ed, Routine, Intra-op lidocaine-e 2022- No Epidural, Univers pinephrine 02-09 ONCE INTRA it y of (XYLOCAINE 23:27: 02:47 PROCEDURE, [facility]/EPINEPHRI 00 :38 Starting [facility]) 1.5 on [facility] Branch %-1:200,000 02/09/23 at injection 1827, Until Discontinu ed, Routine, Intra-op lidocaine-e 2022- No Epidural, Univers pinephrine 02-09 ONCE INTRA it y of (XYLOCAINE 23:27: 02:47 PROCEDURE, [facility]/EPINEPHRI 00 :38 Starting [facility] [place]) 1.5 on [facility] Branch %-1:200,000 02/09/23 at injection 1827, Until Discontinu ed, Routine, Intra-op fentaNYL-ro 2022- No Epidural, Univers pivacaine 2 02-09 ONCE INTRA i ty of mcg/mL-0.1 23:25: 02:47 PROCEDURE, [place] % (PF) in 00 :38 Starting Medica l NS 200 mL on [place] Branch epidural 02/09/23 at infusion 1825, RTU Until Discontinu ed, Routine, Intra-op fentaNYL-ro 2022-0 2022- No Epidural, Univers pivacaine 2 02-09 CONTINUOUS i ty of mcg/mL-0.1 23:25: 02:47 PRN, [place] % (PF) in 00 :38 Starting Medica l NS 200 mL on [place] Branch epidural 02/09/23 at infusion 1825, RTU Until Discontinu ed, Routine, Intra-op fentaNYL-ro 2022-0 2022- No Epidural, Univers pivacaine 2 02-09 ONCE INTRA i ty of mcg/mL-0.1 23:25: 02:47 PROCEDURE, [place] % (PF) in 00 :38 Starting Medica l NS 200 mL on [place] Branch epidural 02/09/23 at infusion 1825, RTU Until Discontinu ed, Routine, Intra-op fentaNYL-ro 2022-0 2022- No Epidural, Univers pivacaine 2 02-09 CONTINUOUS i ty of mcg/mL-0.1 23:25: 02:47 PRN, [place] % (PF) in 00 :38 Starting Medica l NS 200 mL on [place] Branch epidural 02/09/23 at infusion 1825, RTU Until Discontinu ed, Routine, Intra-op fentaNYL-ro 2022-0 2022- No Epidural, Univers pivacaine 2 02-09 ONCE INTRA i ty of mcg/mL-0.1 23:25: 02:47 PROCEDURE, [place] % (PF) in 00 :38 Starting Medica l NS 200 mL on [place] Branch epidural 02/09/23 at infusion 1825, RTU Until Discontinu ed, Routine, Intra-op fentaNYL-ro 2022-0 2022- No Epidural, Univers pivacaine 2 02-09 CONTINUOUS i ty of mcg/mL-0.1 23:25: 02:47 PRN, [place] % (PF) in 00 :38 Starting Medica l NS 200 mL on [place] Branch epidural 02/09/23 at infusion 1825, RTU Until Discontinu ed, Routine, Intra-op oxytocin 3-0 2022- No 2mU/min at 2-40 Un [place] (PITOCIN) 02-09 mL/hr, IV ity of 30 units in 18:04: :27 Infusion, [place] NS 500 mL 38 :47 TITRATE, Medica l IV infusion Starting Bran ch on [place] 02/09/23 at 1304, Until [place] 02/09/23 at 2127, ROBINA lactated 2022- No 500mL at 999 Unive rs ringers IV 02-09 mL/hr, 500 it y of infusion 18:00: 22:56 mL, IV [place] 500 mL 00 :00 Infusion, Medical ONCE, 1 Branch dose, On [place] 02/09/23 at 1300, Routine betamethaso 2022- No 12mg 12 mg, Uni vers ne acet,sod 02-09 Intramuscu i ty of phos 18:00: 17:39 lar, ONCE, [place] (CELESTONE 00 :00 1 dose, On Med ical SOLUSPAN) 6 [place] Branch mg/mL 02/09/23 at injection 1300, 12 mg Routine FENTanyl PF No 100ug 100 mcg, Univers (SUBLIMAZE 02-09 Slow IV ity o f (PF)) 17:05: 02:27 Push, [place] injection 50 :55 Q1HPRN, Medical 100 mcg Starting Branch on [place] 02/09/23 at 1205, Until Mon02/09/23 at 2126, Routine, contractio n pain without an epidural and SVE < 8 cm and Cat I strip [id number] IV 2022- No 1000mL at 1-125 U nivers infusion 02-09 mL/hr, IV ity o f 1,000 mL 17:02: 02:27 Infusion, [place] 57 :47 TITRATE, Medical Starting Branch on [place] 02/09/23 at 1202, Until [place] 02/09/23 at 2126, Routine cephALEXin 2022- Yes [id number] 500mg Take 1 Univers 500 mg 02-02 capsule by ity of capsule 00:00: 04:59 mouth 4 [place] 00 :00 (four) Medical times Branch daily for 7 days. cephALEXin 2022- Yes [id number] 500mg Take 1 Univers 500 mg 4-20 04-28 capsule by ity of capsule 00:00: 04:59 mouth 4 [place] 00 :00 (four) Medical times Branch daily for 7 days. cephALEXin 2023-0 3- No [id number] 500mg Take 1 Univers 500 mg 4-20 04-28 capsule by ity of capsule 00:00: 04:59 mouth 4 [place] 00 :00 (four) Medical times Branch daily for 7 days. cephALEXin 2022-0 3- No [id number] 500mg Take 1 Univers 500 mg 4-20 04-28 capsule by ity of capsule 00:00: 04:59 mouth 4 [place] 00 :00 (four) Medical times Branch daily for 7 days. cephALEXin 2022-0 3- No [id number] 500mg Take 1 Univers 500 mg 4-20 04-28 capsule by ity of capsule 00:00: 04:59 mouth 4 [place] 00 :00 (four) Medical times Branch daily for 7 days. cephALEXin 2022-0 3- No [id number] 500mg Take 1 Univers 500 mg 4-20 04-28 capsule by ity of capsule 00:00: 04:59 mouth 4 [place] 00 :00 (four) Medical times Branch daily for 7 days. cephALEXin 2022-0 3- No [id number] 500mg Take 1 Univers 500 mg 4-20 04-28 capsule by ity of capsule 00:00: 00:00 mouth 4 [place] 00 :00 (four) Medical times Branch daily for 7 days. ferrous 2022-0 Yes [id number] 325mg Take 1 Un [place] sulfate 4-07 tablet by ity of (IRON, 00:00: mouth in [place] FERROUS 00 the Medical SULFATE,) morning Branch 325 mg (65 and 1 mg iron) tablet in tablet the evening. ferrous 2022-0 Yes [id number] 325mg Take 1 Un [place] sulfate 4-07 tablet by ity of (IRON, 00:00: mouth in [place] FERROUS 00 the Medical SULFATE,) morning Branch 325 mg (65 and 1 mg iron) tablet in tablet the evening. ferrous 2022-0 Yes [id number] 325mg Take 1 Un [place] sulfate 4-07 tablet by ity of (IRON, 00:00: mouth in [place] FERROUS 00 the Medical SULFATE,) morning Branch 325 mg (65 and 1 mg iron) tablet in tablet the evening. ferrous Yes [id number] 325mg Take 1 Un [place] sulfate 4-07 tablet by ity of (IRON, 00:00: mouth in [place] FERROUS 00 the Medical SULFATE,) morning Branch 325 mg (65 and 1 mg iron) tablet in tablet the evening. ferrous 0 Yes [id number] 325mg Take 1 Un [place] sulfate 4-07 tablet by ity of (IRON, 00:00: mouth in [place] FERROUS 00 the Medical SULFATE,) morning Branch 325 mg (65 and 1 mg iron) tablet in tablet the evening. ferrous Yes [id number] 325mg Take 1 [place] sulfate 4-07 tablet by ity of (IRON, 00:00: mouth in [place] FERROUS 00 the Medical SULFATE,) morning Branch 325 mg (65 and 1 mg iron) tablet in tablet the evening. ferrous Yes [id number] 325mg Take 1 [place] sulfate 4-07 tablet by ity of (IRON, 00:00: mouth in [place] FERROUS 00 the Medical SULFATE,) morning Branch 325 mg (65 and 1 mg iron) tablet in tablet the evening. ferrous 2022- No [id number] 325mg Take 1 U nivers sulfate 4-07 04-28 tablet by ity of (IRON, 00:00: 00:00 mouth in [place] FERROUS 00 :00 the Medical SULFATE,) morning Branch 325 mg (65 and 1 mg iron) tablet in tablet the evening. 2022- No Take by Unive rs vit/iron 4-06 04-06 mouth. ity of fum/folic 18:18: 00:00 [place] ac 11 :00 Medical ( 1 Branch + 1 ORAL) 2021-10 Yes Take by Univer s vit/iron 2-13 mouth. ity of fum/folic 16:07: [facility] 32 Medical ( 1 Branch + 1 ORAL) 2021-10 Yes Take by Univer s vit/iron 2-13 mouth. ity of fum/folic 16:07: [facility] 32 Medical ( 1 Branch + 1 ORAL) 2021-10 Yes Take by Univer s vit/iron 2-13 mouth. ity of fum/folic 16:07: [facility] 32 Medical ( 1 Branch + 1 ORAL) 2021-10 Yes Take by Univer s vit/iron 2-13 mouth. ity of fum/folic 16:07: [place] [address] Medical ( 1 Branch + 1 ORAL) 2021-10 Yes Take by Univer s vit/iron 2-13 mouth. ity of fum/folic 16:07: [place] [address] Medical ( 1 Branch + 1 ORAL) 2021-10 Yes Take by Univer s vit/iron 2-13 mouth. ity of fum/folic 16:07: [place] [address] Medical ( 1 Branch + 1 ORAL) 2021-10 Yes Take by Univer s vit/iron 2-13 mouth. ity of fum/folic 16:07: [place] [address] Medical ( 1 Branch + 1 ORAL) 2021-10 Yes Take by Univer s vit/iron 2-13 mouth. ity of fum/folic 16:07: [place] [address] Medical ( 1 Branch + 1 ORAL) 2021-10 Yes Take by Univer s vit/iron 2-13 mouth. ity of fum/folic 16:07: [place] [address] Medical ( 1 Branch + 1 ORAL) magnesium 2021-10 Yes [id number] 400mg Take 1 U nivers oxide 400 2-13 tablet by ity o f mg (241.3 00:00: [place] mg 00 the Medical magnesium) morning. Branc h tablet magnesium 2021-10 Yes [id number] 400mg Take 1 U nivers oxide 400 2-13 tablet by ity o f mg (241.3 00:00: [place] mg 00 the Medical magnesium) morning. Branc h tablet magnesium 2021-10 Yes [id number] 400mg Take 1 U nivers oxide 400 2-13 tablet by ity o f mg (241.3 00:00: [place] mg 00 the Medical magnesium) morning. Branc h tablet magnesium 2021-10 Yes [id number] 400mg Take 1 U nivers oxide 400 2-13 tablet by ity o f mg (241.3 00:00: [place] mg 00 the Medical magnesium) morning. Branc h tablet magnesium 2021-10 Yes [id number] 400mg Take 1 U nivers oxide 400 2-13 tablet by ity o f mg (241.3 00:00: [place] mg 00 the Medical magnesium) morning. Branc h tablet magnesium 2021-10 Yes [id number] 400mg Take 1 U nivers oxide 400 2-13 tablet by ity o f mg (241.3 00:00: [place] mg 00 the Medical magnesium) morning. Branc h tablet magnesium 2021-10 Yes [id number] 400mg Take 1 U nivers oxide 400 2-13 tablet by ity o f mg (241.3 00:00: [place] mg 00 the Medical magnesium) morning. Branc h tablet magnesium 2021-10 Yes [id number] 400mg Take 1 U nivers oxide 400 2-13 tablet by ity o f mg (241.3 00:00: [place] mg 00 the Medical magnesium) morning. Branc h tablet magnesium 2021-10 Yes [id number] 400mg Take 1 U nivers oxide 400 2-13 tablet by ity o f mg (241.3 00:00: [place] mg 00 the Medical magnesium) morning. Branc h tablet magnesium 2021-10 Yes [id number] 400mg Take 1 U nivers oxide 400 2-13 tablet by ity o f mg (241.3 00:00: [place] mg 00 the Medical magnesium) morning. Branc h tablet magnesium 2021-10 Yes [id number] 400mg Take 1 U nivers oxide 400 2-13 tablet by ity o f mg (241.3 00:00: [place] mg 00 the Medical magnesium) morning. Branc h tablet magnesium 2021-10 Yes [id number] 400mg Take 1 U nivers oxide 400 2-13 tablet by ity o f mg (241.3 00:00: [place] mg 00 the Medical magnesium) morning. Branc h tablet magnesium 2021-10 Yes [id number] 400mg Take 1 U nivers oxide 400 2-13 tablet by ity o f mg (241.3 00:00: [place] mg 00 the Medical magnesium) morning. Branc h tablet magnesium 2021-10 Yes [id number] 400mg Take 1 U nivers oxide 400 2-13 tablet by ity o f mg (241.3 00:00: [place] mg 00 the Medical magnesium) morning. Branc h tablet magnesium 2021-10 Yes [id number] 400mg Take 1 U nivers oxide 400 2-13 tablet by ity o f mg (241.3 00:00: [place] mg 00 the Medical magnesium) morning. Branc h tablet magnesium 2021-10 Yes [id number] 400mg Take 1 U nivers oxide 400 2-13 tablet by ity o f mg (241.3 00:00: [place] mg 00 the Medical magnesium) morning. Branc h tablet magnesium 2021-10 Yes [id number] 400mg Take 1 U nivers oxide 400 2-13 tablet by ity o f mg (241.3 00:00: [place] mg 00 the Medical magnesium) morning. Branc h tablet magnesium 2021-10 Yes [id number] 400mg Take 1 U nivers oxide 400 2-13 tablet by ity o f mg (241.3 00:00: [place] mg 00 the Medical magnesium) morning. Branc h tablet magnesium 2021-10 Yes [id number] 400mg Take 1 U nivers oxide 400 2-13 tablet by ity o f mg (241.3 00:[place] 00 the Medical magnesium) morning. Branc h tablet magnesium 2021-10- No [id number] 400mg Take 1 Univers oxide 400 2-13 04-28 tablet by ity of mg (241.3 00:00: 00:00 mouth in [place] mg 00 :00 the Medical magnesium) morning. Branc h tablet 2021-10 Yes Take by [facility] vit/iron 0-07 mouth. ity of fum/folic 14:43: [place] [id number] Medical ( 1 Branch + 1 ORAL) 2021-10 Yes Take by [facility] vit/iron 0-07 mouth. ity of fum/folic 14:43: [place] [address] Medical ( 1 Branch + 1 ORAL) 2021-10 Yes Take by [facility] vit/iron 0-07 mouth. ity of fum/folic 14:43: [place] [address] Medical ( 1 Branch + 1 ORAL) PNV 2021-10 Yes [id number] Take 1 Univers 102-iron-fo 0-07 TAB-CAP/M2 it y of late-dha 00:00: by mouth [place] (VITAFOL FE 00 daily. Medica l PLUS) 90 mg Branch iron- 1 mg-200 mg Cap pyridoxine, 2021-10 Yes [id number] 25mg Take 1 Univers VITAMIN 0-07 tablet by ity of B-6, 00:00: mouth [place] (VITAMIN 00 every 6 Medical B-6) 25 mg (six) Branch tablet hours as needed for Nausea and Vomiting (N/V). doxylamine 2021-10 Yes [id number] 25mg Take 1 U nivers (UNISOM, 0-07 tablet by ity [place]AM[place], [place] 25 mg 00 bedtime as Medica l tablet needed for Branch Nausea and Vomiting (N/V). PNV 2021-10 Yes [id number] Take 1 Univers 102-iron-fo 0-07 TAB-CAP/M2 it y of late-dha 00:00: by mouth [place] (VITAFOL FE 00 daily. Medica l PLUS) 90 mg Branch iron- 1 mg-200 mg Cap pyridoxine, 2021-10 Yes [id number] 25mg Take 1 Univers VITAMIN 0-07 tablet by ity of B-6, 00:00: mouth [place] (VITAMIN 00 every 6 Medical B-6) 25 mg (six) Branch tablet hours as needed for Nausea and Vomiting (N/V). doxylamine 2021-10 Yes [id number] 25mg Take 1 U nivers (UNISOM, 0-07 tablet by ity of DOXYLAMINE, [place] 25 mg 00 bedtime as Medica l tablet needed for Branch Nausea and Vomiting (N/V). PNV 2021-10 Yes [id number] Take 1 Univers 102-iron-fo 0-07 TAB-CAP/M2 it y of late-dha 00:00: by mouth [place] (VITAFOL FE 00 daily. Medica l PLUS) 90 mg Branch iron- 1 mg-200 mg Cap pyridoxine, 2021-10 Yes [id number] 25mg Take 1 Univers VITAMIN 0-07 tablet by ity of B-6, 00:00: mouth [place] (VITAMIN 00 every 6 Medical B-6) 25 mg (six) Branch tablet hours as needed for Nausea and Vomiting (N/V). doxylamine 2021-10 Yes [id number] 25mg Take 1 U nivers (UNISOM, 0-07 tablet by ity of DOXYLAMINE, [place] 25 mg 00 bedtime as Medica l tablet needed for Branch Nausea and Vomiting (N/V). PNV 2021-10 Yes [id number] Take 1 Univers 102-iron-fo 0-07 TAB-CAP/M2 it y of late-dha 00:00: by mouth [place] (VITAFOL FE 00 daily. Medica l PLUS) 90 mg Branch iron- 1 mg-200 mg Cap pyridoxine, 2021-10 Yes [id number] 25mg Take 1 Univers VITAMIN 0-07 tablet by ity of B-6, 00:00: mouth [place] (VITAMIN 00 every 6 Medical B-6) 25 mg (six) Branch tablet hours as needed for Nausea and Vomiting (N/V). doxylamine 2021-10 Yes [id number] 25mg Take 1 U nivers (UNISOM, 0-07 tablet by ity of DOXYLAMINE, [place] 25 mg 00 bedtime as Medica l tablet needed for Branch Nausea and Vomiting (N/V). PNV 2021-10 Yes [id number] Take 1 Univers 102-iron-fo 0-07 TAB-CAP/M2 it y of late-dha 00:00: by mouth [place] (VITAFOL FE 00 daily. Medica l PLUS) 90 mg Branch iron- 1 mg-200 mg Cap pyridoxine, 2021-10 Yes [id number] 25mg Take 1 Univers VITAMIN 0-07 tablet by ity of B-6, 00:00: mouth [place] (VITAMIN 00 every 6 Medical B-6) 25 mg (six) Branch tablet hours as needed for Nausea and Vomiting (N/V). doxylamine 2021-10 Yes [id number] 25mg Take 1 U nivers (UNISOM, 0-07 tablet by ity of DOXYLAMINE, [place] 25 mg 00 bedtime as Medica l tablet needed for Branch Nausea and Vomiting (N/V). PNV 2021-10 Yes [id number] Take 1 Univers 102-iron-fo 0-07 TAB-CAP/M2 it y of late-dha 00:00: by mouth [place] (VITAFOL FE 00 daily. Medica l PLUS) 90 mg Branch iron- 1 mg-200 mg Cap pyridoxine, 2021-10 Yes [id number] 25mg Take 1 Univers VITAMIN 0-07 tablet by ity of B-6, 00:00: mouth [place] (VITAMIN 00 every 6 Medical B-6) 25 mg (six) Branch tablet hours as needed for Nausea and Vomiting (N/V). doxylamine 2021-10 Yes [id number] 25mg Take 1 U nivers (UNISOM, 0-07 tablet by ity of DOXYLAMINE, [place] 25 mg 00 bedtime as Medica l tablet needed for Branch Nausea and Vomiting (N/V). PNV 2021-10 Yes [id number] Take 1 Univers 102-iron-fo 0-07 TAB-CAP/M2 it y of late-dha 00:00: by mouth [place] (VITAFOL FE 00 daily. Medica l PLUS) 90 mg Branch iron- 1 mg-200 mg Cap pyridoxine, 2021-10 Yes [id number] 25mg Take 1 Univers VITAMIN 0-07 tablet by ity of B-6, 00:00: mouth [place] (VITAMIN 00 every 6 Medical B-6) 25 mg (six) Branch tablet hours as needed for Nausea and Vomiting (N/V). doxylamine 2021-10 Yes [id number] 25mg Take 1 U nivers (UNISOM, 0-07 tablet by ity of DOXYLAMINE, [place]: [place] 25 mg 00 bedtime as Medica l tablet needed for Branch Nausea and Vomiting (N/V). PNV 2021-10 Yes [id number] Take 1 Univers 102-iron-fo 0-07 TAB-CAP/M2 it y of late-dha 00:00: by mouth [place] (VITAFOL FE 00 daily. Medica l PLUS) 90 mg Branch iron- 1 mg-200 mg Cap PNV 2021-10 Yes [id number] Take 1 Univers 102-iron-fo 0-07 TAB-CAP/M2 it y of late-dha 00:00: by mouth [place] (VITAFOL FE 00 daily. Medica l PLUS) 90 mg Branch iron- 1 mg-200 mg Cap PNV 2021-10 Yes [id number] Take 1 Univers 102-iron-fo 0-07 TAB-CAP/M2 it y of late-dha 00:00: by mouth [place] (VITAFOL FE 00 daily. Medica l PLUS) 90 mg Branch iron- 1 mg-200 mg Cap PNV 2021-10 Yes [id number] Take 1 Univers 102-iron-fo 0-07 TAB-CAP/M2 it y of late-dha 00:00: by mouth [place] (VITAFOL FE 00 daily. Medica l PLUS) 90 mg Branch iron- 1 mg-200 mg Cap PNV 2021-10 Yes [id number] Take 1 Univers 102-iron-fo 0-07 TAB-CAP/M2 it y of late-dha 00:00: by mouth [place] (VITAFOL FE 00 daily. Medica l PLUS) 90 mg Branch iron- 1 mg-200 mg Cap PNV 2021-10 Yes [id number] Take 1 Univers 102-iron-fo 0-07 TAB-CAP/M2 it y of late-dha 00:00: by mouth [place] (VITAFOL FE 00 daily. Medica l PLUS) 90 mg Branch iron- 1 mg-200 mg Cap PNV 2021-10 Yes [id number] Take 1 Univers 102-iron-fo 0-07 TAB-CAP/M2 it y of late-dha 00:00: by mouth [place] (VITAFOL FE 00 daily. Medica l PLUS) 90 mg Branch iron- 1 mg-200 mg Cap PNV 2021-10 Yes [id number] Take 1 Univers 102-iron-fo 0-07 TAB-CAP/M2 it y of late-dha 00:00: by mouth [place] (VITAFOL FE 00 daily. Medica l PLUS) 90 mg Branch iron- 1 mg-200 mg Cap PNV 2021-10 Yes [id number] Take 1 Univers 102-iron-fo 0-07 TAB-CAP/M2 it y of late-dha 00:00: by mouth [place] (VITAFOL FE 00 daily. Medica l PLUS) 90 mg Branch iron- 1 mg-200 mg Cap PNV 2021-10 Yes [id number] Take 1 Univers 102-iron-fo 0-07 TAB-CAP/M2 it y of late-dha 00:00: by mouth [place] (VITAFOL FE 00 daily. Medica l PLUS) 90 mg Branch iron- 1 mg-200 mg Cap PNV 2021-10 Yes [id number] Take 1 Univers 102-iron-fo 0-07 TAB-CAP/M2 it y of late-dha 00:00: by mouth [place] (VITAFOL FE 00 daily. Medica l PLUS) 90 mg Branch iron- 1 mg-200 mg Cap pyridoxine, 2021-10 Yes [id number] 25mg Take 1 Univers VITAMIN 0-07 tablet by ity of B-6, 00:00: mouth [place] (VITAMIN 00 every 6 Medical B-6) 25 mg (six) Branch tablet hours as needed for Nausea and Vomiting (N/V). doxylamine 2021-10 Yes [id number] 25mg Take 1 U nivers (UNISOM, 0-07 tablet by ity of DOXYLAMINE, [place] 25 mg 00 bedtime as Medica l tablet needed for Branch Nausea and Vomiting (N/V). PNV 2021-10 Yes [id number] Take 1 Univers 102-iron-fo 0-07 TAB-CAP/M2 it y of late-dha 00:00: by mouth [place] (VITAFOL FE 00 daily. Medica l PLUS) 90 mg Branch iron- 1 mg-200 mg Cap pyridoxine, 2021-10 Yes [id number] 25mg Take 1 Univers VITAMIN 0-07 tablet by ity of B-6, 00:00: mouth [place] (VITAMIN 00 every 6 Medical B-6) 25 mg (six) Branch tablet hours as needed for Nausea and Vomiting (N/V). doxylamine 2021-10 Yes [id number] 25mg Take 1 U nivers (UNISOM, 0-07 tablet by ity of DOXYLAMINE, [place] 25 mg 00 bedtime as Medica l tablet needed for Branch Nausea and Vomiting (N/V). PNV 2021-10 Yes [id number] Take 1 Univers 102-iron-fo 0-07 TAB-CAP/M2 it y of late-dha 00:00: by mouth [place] (VITAFOL FE 00 daily. Medica l PLUS) 90 mg Branch iron- 1 mg-200 mg Cap pyridoxine, 2021-10 Yes [id number] 25mg Take 1 Univers VITAMIN 0-07 tablet by ity of B-6, 00:00: mouth [place] (VITAMIN 00 every 6 Medical B-6) 25 mg (six) Branch tablet hours as needed for Nausea and Vomiting (N/V). doxylamine 2021-10 Yes [id number] 25mg Take 1 U nivers (UNISOM, 0-07 tablet by ity of DOXYLAMINE, [place]: [place] 25 mg 00 bedtime as Medica l tablet needed for Branch Nausea and Vomiting (N/V). PNV 2021-10 Yes [id number] Take 1 Univers 102-iron-fo 0-07 TAB-CAP/M2 it y of late-dha 00:00: by mouth [place] (VITAFOL FE 00 daily. Medica l PLUS) 90 mg Branch iron- 1 mg-200 mg Cap pyridoxine, 2021-10 Yes [id number] 25mg Take 1 Univers VITAMIN 0-07 tablet by ity of B-6, 00:00: mouth [place] (VITAMIN 00 every 6 Medical B-6) 25 mg (six) Branch tablet hours as needed for Nausea and Vomiting (N/V). doxylamine 2021-10 Yes [id number] 25mg Take 1 U nivers (UNISOM, 0-07 tablet by ity of DOXYLAMINE, [place] 25 mg 00 bedtime as Medica l tablet needed for Branch Nausea and Vomiting (N/V). PNV 2021-10 Yes [id number] Take 1 Univers 102-iron-fo 0-07 TAB-CAP/M2 it y of late-dha 00:00: by mouth [place] (VITAFOL FE 00 daily. Medica l PLUS) 90 mg Branch iron- 1 mg-200 mg Cap pyridoxine, 2021-10 Yes [id number] 25mg Take 1 Univers VITAMIN 0-07 tablet by ity of B-6, 00:00: mouth [place] (VITAMIN 00 every 6 Medical B-6) 25 mg (six) Branch tablet hours as needed for Nausea and Vomiting (N/V). doxylamine 2021-10 Yes [id number] 25mg Take 1 U nivers (UNISOM, 0-07 tablet by ity of DOXYLAMINE, [place] 25 mg 00 bedtime as Medica l tablet needed for Branch Nausea and Vomiting (N/V). PNV 2021-10- No [id number] Take 1 Univer s 102-iron-fo 0-07 04-28 TAB-CAP/M2 i ty of late-dha 00:00: 00:[place] (VITAFOL FE 00 :00 daily. Medica l PLUS) 90 mg Branch iron- 1 mg-200 mg Cap pyridoxine, 2021-10- No [id number] 25mg Take 1 Univers VITAMIN 0-07 04-06 tablet by itshayna of B-6, 00:00: 00:00 mouth [place] (VITAMIN 00 :00 every 6 Medical B-6) 25 mg (six) Branch tablet hours as needed for Nausea and Vomiting (N/V). doxylamine 2021-10- No [id number] 25mg Take 1 Univers (UNISOM, 0-04 18-06 tablet by [place] o f DOXYLAMINE, 00:00: 00:[place] 25 mg 00 :00 bedtime as Medica l tablet needed for Branch Nausea and Vomiting (N/V). F[place] 90 Yes Bianca 1 tablet M emoria 3-29 Evie l 00:00: [place] 90 Yes Bianca 1 tablet M emoria 3-29 Evie l 00:00: [place] 90 Yes Bianca 1 tablet M emoria 3-29 Evie l 00:00: [place] 90 Yes Bianca 1 tablet M emoria 3-29 Evie l 00:00: [place] 90 0 Yes Bianca 1 tablet M emoria 3-29 Evie l 00:00: 1 Yes 0 Memoria oral 1-05 Refill(s) l capsule 08:32: 1 Yes 0 Memoria oral 1-05 Refill(s) l capsule 08:32: 1 Yes 0 Memoria oral 1-05 Refill(s) l capsule 08:32: 1 Yes 0 Memoria oral 1-05 Refill(s) l capsule 08:32: 1 2013- Yes 0 Memoria oral 1-05 Refill(s) l capsule 08:32: 1 Yes 0 Memoria oral 1-05 Refill(s) l capsule 08:32: Saline 2013-0 Saundra Clark 5 mL, Memoria Flush 0.9% 1-05 Blue [place] Route: l 07:31: IVP, Drug [place] 00 Form: INJ, Dosing Weight 65.909, kg, PRN, PRN Line Flush, Start date: 10/20/13 1:31:00, Duration: 30 day, Stop date: 11/19/13 1:30:00(Sa me as: BD Posiflush) Saline No Amber 5 mL, Memoria Flush 0.9% 1-05 Blue [place] Route: l 07:31: IVP, Drug [place] 00 Form: INJ, Dosing Weight 65.909, kg, PRN, PRN Line Flush, Start date: 10/20/13 1:31:00, Duration: 30 day, Stop date: 11/19/13 1:30:00(Sa me as: BD Posiflush) Saline No [place] 5 mL, Memoria Flush 0.9% 1-05 Blue [place] Route: l 07:31: IVP, Drug [place] 00 Form: INJ, Dosing Weight 65.909, kg, PRN, PRN Line Flush, Start date: 10/20/13 1:31:00, Duration: 30 day, Stop date: 11/19/13 1:30:00(Sa me as: BD Posiflush) Saline No Amber 5 mL, Memoria Flush 0.9% 1-05 Kirkwood [place] Route: l 07:31: IVP, Drug [place] 00 Form: INJ, Dosing Weight 65.909, kg, PRN, PRN Line Flush, Start date: 10/20/13 1:31:00, Duration: 30 day, Stop date: 11/19/13 1:30:00(Sa me as: BD Posiflush) Saline No [place] 5 mL, Memoria Flush 0.9% 1-05 Kirkwood [place] Route: l 07:31: IVP, Drug [place] 00 Form: INJ, Dosing Weight 65.909, kg, PRN, PRN Line Flush, Start date: 10/20/13 1:31:00, Duration: 30 day, Stop date: 11/19/13 1:30:00(Sa me as: BD Posiflush) Saline No [place] 5 mL, Memoria Flush 0.9% 1-05 Blue [place] Route: l 07:31: IVP, Drug [place] 00 Form: INJ, Dosing Weight 65.909, kg, PRN, PRN Line Flush, Start date: 10/20/13 1:31:00, Duration: 30 day, Stop date: 11/19/13 1:30:00(Sa sc as: BD Posiflush) No known No No known Unive rs medications 06-21 medication it y of 08:51: s [address] Vital Signs Vital Name Observation Time Observation Value Comments Source Height 2023-04-04 15:10:00 180.34 CM Weight 2023-04-04 15:10:00 103 KG Systolic blood 2023-03-30 20:57:00 123 mm[Hg] Univer sity of [facility] Diastolic blood 2023-03-30 20:57:00 86 mm[Hg] Unive rsity of [facility] Heart rate 2023-03-30 20:57:00 86 /min [facility] Body temperature 2023-03-30 20:57:00 36.56 Eri [facility] Body height 2023-03-30 20:57:00 154.9 cm Universi ty [facility] Body weight 2023-03-30 20:57:00 101.696 kg [facility] BMI 2023-03-30 20:57:00 42.36 kg/m2 [facility] Systolic blood 2023-02-11 12:00:00 129 mm[Hg] Univer sity of [facility] Diastolic blood 2023-02-11 12:00:00 83 mm[Hg] Unive rsity of [facility] Heart rate 2023-02-11 12:00:00 64 /min [facility] Body temperature 2023-02-11 12:00:00 36.28 Eri [facility] Respiratory rate 2023-02-11 12:00:00 16 /min [facility] Oxygen saturation in 2023-02-11 12:00:00 100 /min [facility] Arterial blood by [facility] Pulse oximetry Branch Body height 2023-02-09 17:29:00 154.9 cm Universi [facility] Body weight 2023-02-09 17:29:00 106.595 kg Universi ty [facility] [place] [facility] BMI 2023-02-09 17:29:00 44.40 kg/m2 [facility]i ty [facility] [place] [facility] Systolic blood 2023-02-09 16:07:00 114 mm[Hg] Univer sity of [facility] [place] [facility] Diastolic blood 2023-02-09 16:07:00 83 mm[Hg] Unive rsity of [facility] [place] [facility] Heart rate 2023-02-09 16:07:00 99 /min [facility]i [facility] [place] [facility] Body temperature 2023-02-09 16:07:00 36.78 Eri Univ ersity [facility] [place] [facility] Respiratory rate 2023-02-09 16:07:00 18 /min Univ ers[facility] [place] [facility] Body height 2023-02-09 16:07:00 154.9 cm Universi ty [facility] [place] [facility] Body weight 2023-02-09 16:07:00 106.505 kg [facility] [place] [facility] BMI 2023-02-09 16:07:00 44.37 kg/m2 [facility] [place] [facility] Systolic blood 2023-02-02 20:31:00 121 mm[Hg] Univer sity of [facility] [place] [facility] Diastolic blood 2023-02-02 20:31:00 82 mm[Hg] Unive rsity of [facility] [place] [facility] Heart rate 2023-02-02 20:31:00 85 /min [facility]i [facility] [place] [facility] Body temperature 2023-02-02 20:31:00 36.72 Eri Univ ersity [facility] [place] [facility] Body height 2023-02-02 20:31:00 154.9 cm Universi ty [facility] [place] [facility] Body weight 2023-02-02 20:31:00 106.958 kg [facility] [place] [facility] BMI 2023-02-02 20:31:00 44.55 kg/m2 [facility] [place] [facility] Systolic blood 2023-01-19 20:58:00 116 mm[Hg] Univer sity of [facility] [place] [facility] Diastolic blood 2023-01-19 20:58:00 82 mm[Hg] Unive rsity of [facility] [place] [facility] Heart rate 2023-01-19 20:58:00 98 /min [facility] [place] [facility] Body temperature 2023-01-19 20:58:00 36.39 Eri Univ ersity [facility] [place] [facility] Respiratory rate 2023-01-19 20:58:00 18 /min Univ ersity [facility] [place] [facility] Body height 2023-01-19 20:58:00 154.9 cm Universi ty [facility] [place] [facility] Body weight 2023-01-19 20:58:00 107.956 kg Universi ty [facility] [place] [facility] BMI 2023-01-19 20:58:00 44.97 kg/m2 [facility] [place] [facility] Systolic blood 2022-09-27 22:06:00 125 mm[Hg] Univer sity of [facility] [place] [facility] Diastolic blood 2022-09-27 22:06:00 83 mm[Hg] Unive rsity of [facility] [place] [facility] Heart rate 2022-09-27 22:06:00 99 /min [facility]i ty [facility] [place] [facility] Body temperature 2022-09-27 22:06:00 36.89 Eri Univ ersity [facility] [place] [facility] Respiratory rate 2022-09-27 22:06:00 18 /min Univ ersity [facility] [place] [facility] Body height 2022-09-27 22:06:00 154.9 cm [facility]i [facility] [place] [facility] Body weight 2022-09-27 22:06:00 104.327 kg [facility] [place] [facility] BMI 2022-09-27 22:06:00 43.46 kg/m2 [facility] [place] [facility] Systolic blood 2022-07-22 19:42:00 109 mm[Hg] Univer sity of [facility] [place] [facility] Diastolic blood 2022-07-22 19:42:00 72 mm[Hg] Unive rsity of [facility] [place] [facility] Heart rate 2022-07-22 19:42:00 96 /min [facility]i [facility] [place] [facility] Body temperature 2022-07-22 19:42:00 37.17 Eri Univ ersity [facility] [place] [facility] Respiratory rate 2022-07-22 19:42:00 16 /min Univ ersity [facility] [place] [facility] Body height 2022-07-22 19:42:00 154.9 cm [facility]i [facility] [place] [facility] Body weight 2022-07-22 19:42:00 104.146 kg [facility] [place] [facility] BMI 2022-07-22 19:42:00 43.38 kg/m2 [facility] [place] [facility] Oxygen saturation in 2022-07-22 19:42:00 99 /min University of Arterial blood by [facility] Pulse oximetry Branch Diastolic (mm Hg) 2013-10-20 09:40:00 Mem orial [place] Systolic (mm Hg) 2013-10-20 09:40:00 Zach rial [place] Respitory Rate 2013-10-20 09:40:00 Memori al [place] Heart Rate 2013-10-20 09:40:00 [facility] [place] Temperature Oral (F) 2013-10-20 09:40:00 98.3 F [facility] [place] Weight 2013-10-20 07:18:00 [facility] [place] Temperature Oral (F) 2013-10-20 07:18:00 98.2 F [facility] [place] Respitory Rate 2013-10-20 07:18:00 Memori al [place] Systolic (mm Hg) 2013-10-20 07:18:00 Zach rial [place] Heart Rate 2013-10-20 07:18:00 [facility] [place] Diastolic (mm Hg) 2013-10-20 07:18:00 Mem orial [place] Procedures Procedure Date / Time Performing Clinician Source Performed CBC WITH DIFF 2023-02-10 09:18:00 Chris Royal [facility] CENTRAL NEURAXIAL BLOCK 2023-02-09 23:05:00 Bonifacio Dejesus [facility] >14 WEEKS US 2023-02-09 19:56:06 Chris Royal [facility] CBC WITH DIFF 2023-02-09 18:00:00 Chris Royal [facility] HEPATITIS B SURFACE 2023-02-09 18:00:00 Chris Royal [facility] ANTIGEN [facility] HB ABO GROUPING 2023-02-09 18:00:00 Chris Royal [facility] RHO (D) IMMUNE GLOBULIN 2023-02-09 18:00:00 Chris Royal [facility] ADC OR GABY ONLY - 2023-02-09 18:00:00 [facility] HIV 1/2 AG-AB WITH 2023-02-09 18:00:[address] [facility] REFLEX [facility] NOTICE OF PRIVACY 2023-02-09 17:01:51 Doctor Unassigned, No [facility] ASSIGNMENT OF BENEFITS 2023-02-09 17:01:27 Doctor Unassigned, No [facility] CONSENT/REFUSAL FOR 2023-02-09 17:00:30 Doctor Unassigned, No Un iversity [facility] DIAGNOSIS AND TREATMENT [facility] POCT URINALYSIS W/O 2023-02-09 00:00:00 Chris Royal [facility] POCT URINALYSIS W/O 2023-02-02 00:00:00 Chris Royal [facility] STERILIZATION CONSENT 2023-01-19 05:01:00 Doctor Unassigned, No [facility] POCT URINALYSIS W/O 2023-01-19 00:00:00 Christen Knapp [facility] SCANNED LAB RESULTS 2022-10-15 06:01:00 Doctor Unassigned, No [facility] W/O 2022-09-27 00:00:00 Edwin Rosario [facility] OB TRANSVAGINAL 2022-07-22 20:32:10 Chris Royal [facility] ASSIGNMENT OF BENEFITS 2022-07-22 18:57:21 Doctor Unassigned, No [facility] POCT TEST 2022-07-22 00:00:00 Chris Royal [facility] POCT URINALYSIS W/O 2022-07-22 00:00:00 Chris Royal [facility] Encounters Start End Encounter Admission Attending Care Care Encounter Source Date/Time Date/Time Type Type Clinicians Facility Department ID 2023-04-26 Outpatient [id number] Memoria 12:45:11 [id number] [place] [id number] 2023-03-30 Outpatient [id number] Memoria 15:52:26 [id number] -[id number] [place] [id number] 2023-02-09 Outpatient [id number] Memoria 10:42:17 [id number] [place] [id number] 2023-02-02 Outpatient [id number] Memoria 14:54:56 [id number] [place] [id number] [id number] Outpatient [id number] Memoria 15:53:44 [id number] [place] [id number] 2023-05-15 2023-05-15 Outpatient R CHRIS ROYAL [facility] [id number] Univers 15:30:00 15:30:00 [facility] 2023-04-04 2023-04-04 Outpatient E PAT [facility] [id number] [place] 15:08:00 16:21:00 [facility] 2023-03-30 2023-03-30 Outpatient CHRIS REYES [facility] [id number] Univers 16:00:00 16:46:21 [facility] 2023-03-30 2023-03-30 Routine Chris Royal [facility] [id number] Univers 16:00:00 16:46:21 [place] [id number] ity of [id number] [id number] N[place] dical NAL 134 [facility] 2023-03-30 2023-03-30 Letter Chris Royal [facility] [id number] Univers 00:00:00 00:00:00 (Out) Cam [place] [id number] i ty [id number] [id number] Nh dic[address] 2023-02-09 2023-02-11 Inpatient P ROYALKARMAEN [facility] [place] [id number] Univers 11:58:00 11:35:00 ity of [facility] 2023-02-09 2023-02-11 Hospital Chris Royal [facility] [id number] [id number] Univers 11:58:00 11:35:00 Encounter Cam [place] 350.1.13.10 ity of [facility] [place] [id number] [address] 2023-02-09 2023-02-09 Anesthesia Oleg [facility] 1.2.840.114 [id number] Univers 18:05:00 21:43:00 Event Bonifacio [place] 350.1.13.10 [place] [id number] [address] 2023-02-09 2023-02-09 Anesthesia Scooby Cruz [facility] 1.2.8 40.114 [id number] Univers 17:15:17 17:15:17 Event Bonifacio Dejesus [place] 350.1.13. 10 ity of [facility] [place] [id number] [address] 2023-02-09 2023-02-09 Routine Karma Royalen [facility] 1.2.732.011 [id number] Univers 15:00:00 15:00:00 Cam [place] 350.1.13.10 ity of Visit [facility] [place] [id number] Nh dical NAL 134 [facility] 2023-02-09 2023-02-09 Outpatient R CHRIS ROYAL [facility] [id number] Univers 15:00:00 12:04:29 ity of [facility] 2023-02-02 2023-02-02 Out[facility] [facility] [id number] Univers 15:00:00 16:02:38 ity of [facility] 2023-02-02 2023-02-02 Routine Lele [facility] 1.2.730.913 [id number] Univers 15:00:00 16:02:38 John ROBIN 350.1.13.10 [place] of [place] [id number] Nh dical NAL [address] [place] [address] 2023-01-20 2023-01-20 Electrical Inspector 2, Adc Lab [facility] 1.2.840.114 [id number] Univers 10:30:00 10:45:00 Visit Chris Royal SHARDA 350.1.13.10 it[place] [id number] Nh dical NAL 353 [facility] 2023-01-20 2023-01-20 Outpatient R CHRIS ROYAL [facility] [id number] Univers 10:30:00 10:30:00 ity of [facility] 2023-01-20 2023-01-20 Case Chris Royal [facility] 1.2.345.314 [id number] Univers 00:00:00 00:00:00 Management Cam [place] 350.1.13.10 it[place] [id number] Nh dical NAL 134 [facility] 2023-01-19 2023-01-19 Outpatient R NATE [facility] [id number] Univers 16:15:00 16:39:08 CHRISTEN ity of [facility] 2023-01-19 2023-01-19 Routine Chris Royal [facility] 1.2.840.114 [id number] Univers 16:15:00 16:39:08 Adum, Christen Rasmussen SHARDA 350.1.13.10 [place] [id number] Nh dical NAL 134 [facility] 2023-01-19 2023-01-19 Letter Chris Royal [facility] 1.2.068.912 [id number] Univers 00:00:00 00:00:00 (Out) John ROBIN 350.1.13.10 i ty of [place] [id number] Nh dical NAL 134 [facility] 2023-01-19 2023-01-19 Orders Doctor CYDNEY 1.2.840.114 [id number] Univers 00:00:00 00:00:00 Only Unassigned, RANI 350.1.13.10 ity of [place] [facility] 4.2.7.2.686 Ruy as [id number] [address] 2022-11-30 2022-11-30 Electrical Inspector Magdaleno Geronimo Lab Main [facility] 1.2.8 40.114 [id number] Univers 09:30:00 09:45:00 Visit Edwin Rosario 350.1.13. 10 ity of [facility] [place] [id number] [facility] 353 [facility] 2022-11-30 2022-11-30 Electrical Inspector Sark[facility] 1.2 .840.114 [id number] Univers 08:00:00 09:00:00 Visit Chris Royal MANAGER PRODUCTION 350.1.13.10 ity of Bob Rosas [facility] 4.2.7.2.686 [place] MATERNAL [id number] Med ical & CHILD [address] [place] [address] 2022-11-30 2022-11-30 Outpatient P BOB ROSAS [facility] [id number] Univers 08:00:00 08:00:00 BOB ROSAS ity of [facility] 2022-11-30 2022-11-30 Case J Carlos [facility] 1.2.840.114 [id number] Univers 00:00:00 00:00:00 Management Edwin KUMAR 350.1.13.10 ity of [place] [id number] [address] 2022-10-28 2022-10-28 Outpatient P CHRIS ROYAL [facility] [id number] Univers 15:00:00 15:00:00 ity of [facility] 2022-10-25 2022-10-25 Telephone [facility] 1.2.840.11 [id number] Univers 00:00:00 00:00:00 Edwin KUMAR 350.1.13.10 it y of [place] [facility] [id number] [address] 2022-10-21 2022-10-21 Telephone Chris Royal [facility] 1.2.840.114 [id number] Univers 00:00:00 00:00:00 John KUMAR 350.1.13.10 it y of [place] [id number] [address] 2022-10-15 2022-10-15 Orders Doctor CYDNEY 1.2.840.114 [id number] Univers 00:00:00 00:00:00 Only Unassigned, RANI 350.1.13.10 ity of [place] [facility] 4.2.7.2.686 Ruy as [id number] [place] [address] [address] 2022-09-27 2022-09-27 Outpatient R EDWIN ROSARIO [facility] B [id number] Univers 16:15:00 16:21:51 EDWIN ROSARIO [facility] 2022-09-27 2022-09-27 [facility] 1.2.840.114 [id number] Univers 16:15:00 16:21:51 Edwin KUMAR 350.1.13.10 i ty of [place] [id number] [address] 2022-09-27 2022-09-27 Letter J Carlos [facility] 1.2.840.114 [id number] Univers 00:00:00 00:00:00 (Out) Edwin KUMAR 350.1.13.10 it y of [facility] 4.2.7.2.686 [facility] [id number] [address] 2022-08-19 2022-08-19 Outpatient R ROYAL [facility] [id number] Univers 11:00:00 11:00:00 ity [facility] 2022-08-12 2022-08-12 [facility] [id number] Univers 09:00:00 09:00:00 KIMBER ity [facility] 2022-07-26 2022-07-26 Telephone Lele [facility] 1.2.840.114 [id number] Univers 00:00:00 00:00:00 oJhn KUMAR 350.1.13.10 it y of WOMEN'S 4.2.7.2.686 [facility] HEALTH [id number] [address] 2022-07-22 2022-07-22 Outpatient R LELE [facility] [id number] Univers 14:30:00 15:28:11 ity [facility] 2022-07-22 2022-07-22 Initial Lele [facility] 1.2.840.114 [id number] Univers 14:30:00 15:28:11 John KUMAR 350.1.13.10 i ty of [place] [id number] [address] 2022-07-22 2022-07-22 Orders Doctor CYDNEY 1.2.840.114 [id number] Univers 00:00:00 00:00:00 Only Unassigned, RANI 350.1.13.10 ity of [place] [facility] 4.2.7.2.686 [place]uy as [id number] [place] [address] [address] 2022-05-11 2022-05-11 Outpatient JANE SALAS [facility] [address] [place] 00:00:00 00:00:00 [facility] 2019-03-04 2019-03-04 Outpatient C Briansho C Briansho [id number] eClinic 12:37:00 12:37:00 Anderson Jefferson MD PhD PA PhD PA 2019-02-14 2019-02-14 Emergency Bibi LUDWIG [facility] ECC [id number] [address] 10:12:00 10:55:[address] [facility] 2019-01-23 2019-01-26 Inpatient Alton CASE [facility] OB [id number] [address] 20:50:00 13:57:00 BIANCA [facility] 2019-01-24 2019-01-24 Outpatient C Funsho C Funsho [id number] eClinic 15:03:00 15:03:00 Anderson Jefferson MD PhD PA PhD PA 2019-01-23 2019-01-23 Outpatient C Briansho C Funsho [id number] eClinic 12:26:00 12:26:00 Anderson Jefferson MD PhD PA PhD PA 2019-01-22 2019-01-22 Outpatient Sera CASE [facility] OB [id number] 14:56:00 16:29:00 BIANCA [facility] 2019-01-22 2019-01-22 Outpatient C Briansho C Funsho [id number] eClinic 09:40:00 09:40:00 Anderson Jefferson MD PhD PA PhD PA 2019-01-09 2019-01-10 Outpatient Bibi CASE [facility] OB [id number] 20:53:00 01:17:00 BIANCA [facility] 2018-09-05 2018-09-05 Outpatient C Funsho C Funsho [id number] eClinic 11:01:00 11:01:00 Anderson Jefferson MD PhD PA PhD PA 2018-08-07 2018-08-07 Outpatient Bibi CARMONA [facility] ECC [id number] [address] 12:12:00 13:30:00 WAS [facility] 2017-01-11 2017-01-11 Outpatient C Funsho C Funsho [id number] eClinic 11:23:00 11:23:00 Anderson Jefferson MD PhD PA PhD PA 2017-01-06 2017-01-06 Outpatient C Sofia Souzao [id number] eClinic 10:31:00 10:31:00 Anderson Jefferson MD PhD PA PhD PA 2016-12-30 2016-12-30 Outpatient C Sofia Souzao [id number] eClinic 09:37:00 09:37:00 Anderson Jefferson MD PhD PA PhD PA 2013-10-20 2013-10-20 Emergency nullFlavo [place] [id number] [facility] 01:11:00 03:41:00 r [place] 00 l Carlitos 2013-10-20 2013-10-20 Emergency nullFlavo MH [id number] [facility] 01:11:00 03:41:00 r [place] 00 l Bus[place] 2013-10-20 2013-10-20 Outpatient 2.16.840. 2.16.840.1. 4 [id number] Mem[facility] 01:11:00 03:41:00 [id number]. [id number] 00 l 3.615.0.1 5.0.101 [place] n 01 [place] Results Test Description Test Time Test Comments Results Result Comments Source URINE OW 2023-04-04 16:20:00 Test Item Value Reference Range Interpretation Comme nts PREG UR (test code = PGU) Negative NEGATIVE URINALYSIS W/O MICROSCOPICOW2023-04-04 16:14:00 Test Item Value Reference Range Interpretation Comments COLOR (test code = Yellow YELLOW COLU) CLARITY (test code = Clear CLEAR CLA) GLUCOSE UR (test Negative NEGATIVE code = UA GLUCOSE) BILI UR (test code = Negative NEGATIVE BILE) KETONES UR (test Negative NEGATIVE code = NAHED) SP GRAVITY (test 1.025 1.005-1.030 code = SPGR) PH UR (test code = 7.0 4.5-8.0 PH) PROTEIN UR (test Negative NEGATIVE code = PU) NITRITE UR (test Negative NEGATIVE code = NITRITE) UROBIL UR (test code 1.0 E.U./dL = GUROQ) UROBIL UR (test code UROBILINOGEN = GUROQC) REFERENCE RANGE 0.2 - 1.0 EU/dL BLOOD UR (test code Negative NEGATIVE = UA BLOOD) LEUK ES UR (test Trace NEGATIVE code = LEUK) TROPONIN I OW2023-04-04 15:54:00 Test Item Value Reference Range Interpretation Comments TROPONIN I (test <0.05 ng/mL See_Comment [Automated message] code = GTPI) The system whic h generated this result transmitted ref erence range: <=0.05. The reference range was not used to int erpret this result as normal/abnormal . BRAIN NATRIURETIC PEPTIDE OW2023-04-04 15:54:00 Test Item Value Reference Range Interpretation Comments BNP (test code = 16 pg/mL See_Comment [Automated message] The OBNP) system which ge nerated this result tra nsmitted reference range : <=100. The reference r yolanda was not used to int erpret this result as francisco j l/abnormal. XR CHEST 1 VIEW PORTABLE *OW*2023-04-04 15:51:54 [facility] : 1995 Sex: FCHEST X-RAY 1 EWDictation Location: [id number] HISTORY: chest painTechnique:A single frontal view of the chest was obtained.FINDINGS:Bony structures are unremarkable. The cardiac, aortic and hilar outlines are normal. The lungs are clear of infiltrates or suspicious nodules. No pleural effusion or pneumothorax. Nofree air under the hemidiaphragms. No evidence of pneumomediastinum. IMPRESSION:Normal chest x-ray. Electronically signed by: Mamie Almodovar MD 04/04/2023 3:51 PM CDT [id number] Panel *OW* rocky 2023-04-04 15:40:00 Test Item Value Reference Range Interpretation Comments GLUCOSE (test code = GGUL) 94 mg/dL 73-118 BUN (test code = GBUN) 13 mg/dL 7-22 CREATININE (test code = GCRE) 0.7 mg/dL 0.6-1.2 CK TOTAL (test code = GCK) 58 U/L 30-190 SODIUM (test code = GNA+) 136 mmol/L 128-145 POTASSIUM (test code = GK+) 4.1 mmol/L 3.6-5.1 CHLORIDE (test code = GCL-) 105 mmol/L 98-108 TCO2 (test code = GTC02) 29 mmol/L 18-33 CBC (INCLUDES AUTOMATED DIFFERENTIAL) *2023-04-04 15:32:00 Test Item Value Reference Range Interpretation Comments WBC (test code = WBC) 11.0 10\S\3/uL 4.5-11.0 RBC (test code = RBC) 4.57 10\S\6/uL 4.30-5.70 HGB (test code = HBG) 11.6 g/dL 12.0-15.5 L HCT (test code = HCT) 37.0 % 35.0-44.0 MCV (test code = MCV) 80.9 fL 81.0-99.0 L MCH (test code = MCH) 25.4 pg 27.0-31.0 L MCHC (test code = MCHC) 31.4 g/dL 32.0-36.0 L RDW (test code = RDW) 15.1 % 11.5-14.5 H PLT (test code = PLT) 307 10\S\3/uL 130-400 MPV (test code = OMPV) 7.7 fL 6.2-10.2 NEUTROP # (test code = NE#) 7.3 10\S\3/uL 1.6-8.0 LYMPH # (test code = LY#) 2.7 10\S\3/uL 1.1-3.5 MID # (test code = GMID#) 1.1 10\S\3/uL 0.0-1.1 GRAN % (test code = GRA%) 66.0 % 35.0-73.0 LYMPH % (test code = GLY%) 24.1 % 20.0-55.0 MID % (test code = GMID%) 9.9 % 0.0-10.0 ADC OR GABY ONLY - [id number] 08:10:31 Test Item Value Reference Range Interpretation Comments RPR (Qualitative) (test code = Nonreactive Nonreactive 79833-9) Lab Interpretation (test code = Normal 42645-8) [place] [facility] IMMUNE [id number] 03:41:57 Test Item Value Reference Range Interpretation Comments RHIG CANDIDATE? No- see comment Patient i s not a (test code = candidate for R hIg- 5188) Patient is Rh Positive.Perfor med at [facility] Laboratory Services - [facility] Blood [address] [place], [place] [id number] Free: [phone] A No. [id number] [facility]landsHepatitis B Surface [id number] 23:05:43 Test Item Value Reference Range Interpretation Comments HBsAg Semi-Quantitative (test code = 0.04 Negative 5195-3) [place] [facility]/2 AG-AB WITH [id number] 19:48:56 Test Item Value Reference Range Interpretation Comments HIV 0.08 Negative Semi-quantitative (test code = 63946-7) RHETT (test code = Non-reactive for HIV-1 RHETT) antigen and HIV-1/HIV-2 antibodies. ?No laboratory evidence of HIV infection. ?Repeat in 2-4 weeks if acute HIV infection is suspected. [place] [facility]landsCBC with [id number] 18:39:39 Test Item Value Reference Range Interpretation Comments WBC (test code = 12.62 See_Comment H [Automated 4140-2) message] The sy stem which generated this result transmitted reference range : 4.30 - 11.10 10*3/?L. The reference range was not used to interpret this result as normal/abnormal . RBC (test code = 4.16 See_Comment [Automated 970-8) message] The sy stem which generated this result transmitted reference range : 3.93 - 5.25 10*6/?L. The reference range was not used to interpret this result as normal/abnormal . HGB (test code = 10.4 g/dL 11.6-15.0 L 718-7) HCT (test code = 31.2 % 35.7-45.2 L 4544-3) MCV (test code = 75.0 fL 80.6-95.5 L 787-2) MCH (test code = 25.0 pg 25.9-32.8 L 785-6) MCHC (test code = 33.3 g/dL 31.6-35.1 786-4) RDW-SD (test code = 35.6 fL 39.0-49.9 L 68638-0) RDW-CV (test code = 13.2 % 12.0-15.5 788-0) PLT (test code = 269 See_Comment [Automated 777-3) message] The sy stem which generated this result transmitted reference range : 166 - 358 10*3/ ?L. The reference r yolanda was not used to interpret this result as normal/abnormal . MPV (test code = 9.9 fL 9.5-12.9 11406-4) NRBC/100 WBC (test 0.0 See_Comment [Automat ed code = [id number]) message] The system which generated this result transmitted reference range : 0.0 - 10.0 /100 WBCs. The refer ence range was not u sed to interpret th is result as normal/abnormal . NRBC x10^3 (test code See_Comment [Auto mated = [id number]) message] The s ystem which generated this result transmitted reference range : 10*3/?L. The reference range was not used to interpret this result as normal/abnormal . GRAN MAT (NEUT) % 77.1 % (test code = 770-8) IMM GRAN % (test code 0.40 % = 1579453128) LYMPH % (test code = 15.1 % 736-9) MONO % (test code = 5.9 % 5905-5) EOS % (test code = 1.1 % 713-8) BASO % (test code = 0.4 % 706-2) GRAN MAT x10^3(ANC) 9.72 10*3/uL 1.88-7.09 H (test code = 4170173757) IMM GRAN x10^3 (test 0.05 10*3/uL 0.00-0.06 code = 8867138565) LYMPH x10^3 (test code 1.91 10*3/uL 1.32-3.29 = 731-0) MONO x10^3 (test code 0.75 10*3/uL 0.33-0.92 = 742-7) EOS x10^3 (test code = 0.14 10*3/uL 0.03-0.39 711-2) BASO x10^3 (test code 0.05 10*3/uL 0.01-0.07 = 704-7) Lab Interpretation Abnormal (test code = 78013-3) [place] [facility]landsType and Screen - ONCE [id number] 18:28:00 Test Item Value Reference Range Interpretation Comments ABO & RH (test code = 20) B Positive IAT (test code = 1185) Negative [facility] URINALYSIS W/O SPECIFIC [id number] 16:21:00 Test Item Value Reference Range Interpretation Comments POCT PH U (test code = 3254) n/a 5-8 POCT U LEUK EST (test code = n/a Negative - Negative 3) POCT U NIT (test code = 3262) n/a Negative - Negative POCT U PROT (test code = 3259) Negative Negative - Negative POCT U GLU (test code = 3256) Normal Negative - Negative POCT U KETONE (test code = 3258) n/a Negative - Negative POCT U BLD (test code = 3257) n/a Negative - Negative [facility] SPECIFIC [id number] 20:29:00 Test Item Value Reference Range Interpretation Comments POCT PH U (test code = 3254) 7 mg/dl 5-8 POCT U LEUK EST (test code = ++ Negative - Negative 3263) POCT U NIT (test code = 3262) Negative Negative - Negative POCT U PROT (test code = 3259) Negative Negative - Negative POCT U GLU (test code = 3256) Normal Negative - Negative POCT U KETONE (test code = 3258) Negative Negative - Negative POCT U BLD (test code = 3257) Negative Negative - Negative [facility] URINALYSIS W/O SPECIFIC [id number] 21:00:00 Test Item Value Reference Range Interpretation Comments POCT PH U (test code = 3254) n/a 5-8 POCT U LEUK EST (test code = 3263) n/a Negative - Negative POCT U NIT (test code = 3262) n/a Negative - Negative POCT U PROT (test code = 3259) neg Negative - Negative POCT U GLU (test code = 3256) neg Negative - Negative POCT U KETONE (test code = 3258) n/a Negative - Negative POCT U BLD (test code = 3257) n/a Negative - Negative [facility] URINALYSIS W/O SPECIFIC [id number] 22:12:00 Test Item Value Reference Range Interpretation Comments POCT PH U (test code = 3254) N/A 5-8 POCT U LEUK EST (test code = N/A Negative - Negative 3263) POCT U NIT (test code = 3262) N/A Negative - Negative POCT U PROT (test code = 3259) Negative Negative - Negative POCT U GLU (test code = 3256) Negative Negative - Negative POCT U KETONE (test code = 3258) N/A Negative - Negative POCT U BLD (test code = 3257) N/A Negative - Negative [facility] URINALYSIS W/O SPECIFIC [id number] 20:02:00 Test Item Value Reference Range Interpretation Comments POCT PH U (test code = 3254) n/a 5-8 POCT U LEUK EST (test code = n/a Negative - Negative 3263) POCT U NIT (test code = 3262) n/a Negative - Negative POCT U PROT (test code = 3259) negative Negative - Negative POCT U GLU (test code = 3256) negative Negative - Negative POCT U KETONE (test code = 3258) n/a Negative - Negative POCT U BLD (test code = 3257) n/a Negative - Negative [facility] URINALYSIS W/O SPECIFIC [id number] 20:02:00 Test Item Value Reference Range Interpretation Comments POCT PH U (test code = 3254) n/a 5-8 POCT U LEUK EST (test code = n/a Negative - Negative 3263) POCT U NIT (test code = 3262) n/a Negative - Negative POCT U PROT (test code = 3259) negative Negative - Negative POCT U GLU (test code = 3256) negative Negative - Negative POCT U KETONE (test code = 3258) n/a Negative - Negative POCT U BLD (test code = 3257) n/a Negative - Negative [facility]PO[facility] [id number] 19:48:00 Test Item Value Reference Range Interpretation Comments POCT PREG (test code = 1605) Positive On board controls acceptable with C Yes Line (test code = 3574) POCT PREG LOT # (test code = 3575) POCT PREG TEST DATE (test code = 3576) [facility] [id number] 19:48:00 Test Item Value Reference Range Interpretation Comments POCT PREG (test code = 1605) Positive On board controls acceptable with C Yes Line (test code = 3574) POCT PREG LOT # (test code = 3575) POCT PREG TEST DATE (test code = 3576) [facility]landsCBC (INCLUDES AUTOMATED DIFFERENTIAL)*WW 2019-01-25 06:57:00 Test Item Value Reference Range Interpretation Comments WBC (test code = WBC) 16.2 10\S\3/uL [...] RBC MORPH (test code = NORMAL WRBCMOR) HEPATITIS B SURFACE ANTIGEN *WW*2019-01-24 20:30:00 Test [...] is similar DIRECT INFLUENZA A AND B [id number] 22:22:00 Test Item Value Reference Range Interpretation [...] = USPERM) /HPF NONE CBC (INCLUDES AUTOMATED DIFFERENTIAL)*[id number] 22:15:00 Test Item Value Reference Range Interpretation [...] MORPH (test code = NORMAL WRBCMOR) THROAT [id number] 09:47:00 Test Item Value Reference Range Interpretation Comments Culture Observations NO BETA HEMOLYTIC (test code = COB1) STREPTOCOCCUS ISOLATED U/S >14 WEEKS *OW*2018-08-07 13:23:28OBSTETRIC ULTRASOUND Location code: [id number] HISTORY: R10.2: PELVIC AND PERINEAL PAINGA by LMP: 14weeks 3 daysGA by today's US: 15 weeks and 3 daysFindings:There is a single intrauterine in breech presentation. Estimatedfetal heart rate is 163 beats per minute. Amniotic fluid index is 10.0 cm. Theplacenta is posterior/fundal with grade 1 changes. Note is made of a 2.5 cmplacental [place]. There is no evidence of previa or abruption. The cervix isclosed and measures 3.3 cm. The maternal adne xa are unremarkable. Approximate sonographic age is 15 weeks and 3 days based upon the following:BPD3.0 cm 15 weeks 3 daysHC 11.3 cm 15 weeks 3 daysAC 9.8 cm 15 weeks 6 daysFL 1.7 cm 15 weeks 0 days ratios are within normal limits. weight estimateWeight: 125 gramsAnatomic survey is limiteddue to early gestational age. There is no [...] GMID%) 5.9 % 0.0-10.0 CBC (INCLUDES AUTOMATED DIFFERENTIAL)*[id number] 07:14:00 Test Item Value Reference Range Interpretation [...] = USPERM) /HPF NONE CBC (INCLUDES AUTOMATED DIFFERENTIAL)*[id number] 21:32:00 Test Item Value Reference Range Interpretation [...] = WAUAM) NO NO WID-U/S > 14 [id number] 15:29:36OBSTETRIC ULTRASOUND Location code: [id number] HISTORY: Supervision of otherwise normal pregnancyGA by LMP: 34 weeks 1 dayGA by first [...] upon the following:BPD 9.1 cm 36 weeks 5daysHC 33.1 cm 37 weeks 5 daysAC 32.0 cm 36 weeks 0 daysFL 7.1 cm 36 weeks 2 days ratios are within normal limits. weight estimateWeight: 2900gramsWT%: 64% for 36 weeks 1 dayAnatomic survey r eveals no abnormality of the intracranial contents,four-chamber heart, stomach, bilateral kidneys, urinary bladder, 3 vessel cord,cord insertion, spine, and extremities.IMPRESSION: 1. Single intrauterine in vertex presentation with an approximatesonographic age of 36 weeks 2 days and estimated due date of 03/01/17. 2. No abnormality identified.U/S >14 WEEKS 2016-12-24 15:27:33EXAM: Obstetric Ultrasound CompleteLocation: A1 COMPARISON: NoneINDICATION: [...] the cranium, spine, mid face,4-chamberheart, stomach bubble, kidneys, bladder, and 3-vessel cord. The abdominal cordinsertion is not well seen due to shadowing. lips are not imaged. One ofthe kidneys is not well seen secondary to positioning and shadowing. Fetalgenderis male. Evaluation of the spine is limited by positioning. heart rate: 154 BPMAverage son ographic age of the fetus is 30 weeks [...] noted, with SPENCER of 27.29. Follow-up is r ecommended.2. No anomaly is identified. One of the kidneys is not well seen due toshadowing and positioning. Evaluation of lips and spine and abdominalcord insertion is limited due to shadowing or positioning.3. No evidence for placenta previa nor abruption.BLOOD BANK [id number] 07:31:01 Test Item Value Reference Range Interpretation Comments ABO/Rh (test code = ABO/Rh) B [facility] [id number] 07:31:01 Test Item Value Reference Range Interpretation Comments ABO/Rh (test code = ABO/Rh) B [facility] [employer] [id number] 07:31:01 Test Item Value Reference Range Interpretation Comments ABO/Rh (test code = ABO/Rh) B [facility] [employer] [id number] 07:31:01 Test Item Value Reference Range Interpretation Comments ABO/Rh (test code = ABO/Rh) B [facility] [id number] 07:31:01 Test Item Value Reference Range Interpretation Comments ABO/Rh (test code = ABO/Rh) B [facility] [id number] 07:31:01 Test Item Value Reference Range Interpretation Comments ABO/Rh (test code = ABO/Rh) B [facility]2014-01-05 07:30:00 Test Item Value Reference Range Interpretation Comments Alk Phos (test code = Alk Phos) 62 39-[address] [facility] [id number] 07:30:00 Test Item Value Reference Range Interpretation Comments Bili Total (test code = Bili Total) 0.2 0.2-1.[address] [id number] 07:30:00 Test Item Value Reference Range Interpretation Comments Potassium Lvl (test code = Potassium 3.6 3.5-5.1 N Lvl) [id number] 07:30:00 Test Item Value Reference Range Interpretation Comments Sodium Lvl (test code = Sodium Lvl) 137 135-[address] [facility] [facility] HospitalBctvoooEGUXJHJGZ8682-38-40 07:30:00 Test Item Value Reference Range Interpretation Comments Alk Phos (test code = Alk Phos) 62 39-[address] [facility] HospitalBmegtlpPWCEYIFRX3564-25-49 07:30:00 Test Item Value Reference Range Interpretation Comments BUN (test code = BUN) 10 7-[address] [facility] HospitalCzrszrlMZEMBZOMC2349-68-35 07:30:00 Test Item Value Reference Range Interpretation Comments Creatinine Lvl (test code = Creatinine 0.6 0.5-1.4 N Lvl) [facility] HospitalYupnijkVQENRMYER4029-63-91 07:30:00 Test Item Value Reference Range Interpretation Comments Glucose Lvl (test code = Glucose Lvl) 87 70-[address] [facility] HospitalOlaqwgcENOEHOOER4999-74-62 07:30:00 Test Item Value Reference Range Interpretation Comments B/C Ratio (test code = B/C Ratio) 17 6-[address] [facility] HospitalWvafycwWFMTKABPD7433-23-43 07:30:00 Test Item Value Reference Range Interpretation Comments Globulin (test code = Globulin) 4.7 2.0-4.0 H [facility] CenterPxasotzEXBQLTEZH1843-44-27 07:30:00 Test Item Value Reference Range Interpretation Comments A/G Ratio (test code = A/G Ratio) 0.7 0.7-1.6 N [facility] CenterRyyqkvvQHHNZAZPB8191-63-94 07:30:00 Test Item Value Reference Range Interpretation Comments AGAP (test code = AGAP) 12.6 10.0-20.0 N [facility]WlcihvmJOXCMTUKWF9303-82-00 07:30:00 Test Item Value Reference Range Interpretation Comments RDW (test code = RDW) 13.2 11.5-14.5 N [facility] HospitalEoixnbdITZISJCCHL7079-13-26 07:30:00 Test Item Value Reference Range Interpretation Comments MPV (test code = MPV) 7.9 7.4-10.4 N [facility] HospitalDsfthbzHEVONDJECD1158-99-46 07:30:00 Test Item Value Reference Range Interpretation Comments Platelet (test code = Platelet) 331 133-450 N [facility] CenterZinneatXAKULVDSK1963-06-56 07:30:00 Test Item Value Reference Range Interpretation Comments Bili Total (test code = Bili Total) 0.2 0.2-1.3 N [facility] HospitalYzpsfbuXPXRYXFELB8168-17-89 07:30:00 Test Item Value Reference Range Interpretation Comments MCH (test code = MCH) 27.3 pg 27.0-31.0 N [facility] HospitalNnlnfksWFTJBXHVTO4813-99-59 07:30:00 Test Item Value Reference Range Interpretation Comments MCHC (test code = MCHC) 33.1 32.0-36.0 N [facility] HospitalLuzqngoWJBSWXZITS9407-77-42 07:30:00 Test Item Value Reference Range Interpretation Comments Hct (test code = Hct) 37.4 36.0-48.0 N [facility] HospitalJmwuftgNWUKHXMPND2849-78-17 07:30:00 Test Item Value Reference Range Interpretation Comments MCV (test code = MCV) 82.5 81.0-99.0 N [facility] HospitalUcosnpuYCBBLHEXZJ9422-13-23 07:30:00 Test Item Value Reference Range Interpretation Comments Hgb (test code = Hgb) 12.4 12.0-16.0 N [facility] HospitalVmyphunJERZGLZEVF8777-73-23 07:30:00 Test Item Value Reference Range Interpretation Comments RBC X 10x6 (test code = RBC X 10x6) 4.54 4.20-5.40 N [facility] HospitalPzqlvvkYXMAZDWHJS5466-27-70 07:30:00 Test Item Value Reference Range Interpretation Comments WBC X 10x3 (test code = WBC X 10x3) 16.6 3.7-10.4 H [facility] HospitalKpdbfemKFNIHGEWWI4996-72-64 07:30:00 Test Item Value Reference Range Interpretation Comments Monocytes (test code = Monocytes) 5.7 2.0-12.0 N [facility] HospitalXuyxnxePKUGDFEESF2970-58-05 07:30:00 Test Item Value Reference Range Interpretation Comments Lymphocytes (test code = Lymphocytes) 19.6 20.0-40.0 L [facility] HospitalMxzxigrGVGHXMRQQG1861-40-29 07:30:00 Test Item Value Reference Range Interpretation Comments Basophils (test code = 0.4 See_Comment N [Aut omated message] The Basophils) system which ge nerated this result tra nsmitted reference range : <=1.0. The reference r yolanda was not used to int erpret this result as normal/abnormal . [facility] CenterWouaxlxABVXZGKUD2481-48-86 07:30:00 Test Item Value Reference Range Interpretation Comments Potassium Lvl (test code = Potassium 3.6 3.5-5.1 N Lvl) [facility] HospitalCiwtyczPIOJJXGULE7239-87-23 07:30:00 Test Item Value Reference Range Interpretation Comments Eosinophils (test code = 0.6 See_Comment N [A utomated message] The Eosinophils) system which ge nerated this result tra nsmitted reference range : <=4.0. The reference r yolanda was not used to int erpret this result as normal/abnormal . [facility] HospitalKiiokjkINHZUVJDIV8765-25-75 07:30:00 Test Item Value Reference Range Interpretation Comments Segs (test code = Segs) 73.7 45.0-75.0 N [facility] HospitalRkuikvuOJZMPKAVPW2122-69-25 07:30:00 Test Item Value Reference Range Interpretation Comments Lymphocytes # (test code = Lymphocytes 3.2 1.0-5.5 N #) [facility] HospitalRaorntaJYXRXMIDCA1482-88-85 07:30:00 Test Item Value Reference Range Interpretation Comments Monocytes # (test code 0.9 See_Comment H [Aut omated message] The = Monocytes #) system which generated this result tra nsmitted reference range : <=0.8. The reference r yolanda was not used to int erpret this result as normal/abnormal . [facility]UfqxvrhBDQIBQEHYK4439-14-31 07:30:00 Test Item Value Reference Range Interpretation Comments Eosinophils # (test code 0.1 See_Comment N [A utomated message] The = Eosinophils #) system whic h generated this result tra nsmitted reference range : <=0.5. The reference r yolanda was not used to int erpret this result as normal/abnormal . [facility] HospitalXbqrcabVDVUZRNUOR5263-95-19 07:30:00 Test Item Value Reference Range Interpretation Comments Segs-Bands # (test code = Segs-Bands #) 12.2 1.5-8.1 H [facility] HospitalDnmvtklCBPTOAWSQH9210-77-59 07:30:00 Test Item Value Reference Range Interpretation Comments Basophils # (test code 0.1 See_Comment N [Aut omated message] The = Basophils #) system which generated this result tra nsmitted reference range : <=0.2. The reference r yolanda was not used to int erpret this result as normal/abnormal . [facility]roeMxmksmuOMVIARSHJC5193-56-79 07:30:00 Test Item Value Reference Range Interpretation Comments UA Bacteria (test code = UA Many /HPF N Bacteria) [facility]LisudtiVNVMYHPQGH2642-92-50 07:30:00 Test Item Value Reference Range Interpretation Comments UA Color (test code = Yellow *NA*(10/20/2013 UA Color) 01:30:00) [facility]roeMpbhfkyLECYXSHKIM4282-99-35 07:30:00 Test Item Value Reference Range Interpretation Comments UA Spec Grav (test code = UA Spec 1.020 1 N Grav) [facility]roeQbhwjemGXGIQWGKX2795-68-03 07:30:00 Test Item Value Reference Range Interpretation Comments Sodium Lvl (test code = Sodium Lvl) 137 135-145 N [facility]roeHbtzdrjFJWXTIYHYX7850-66-47 07:30:00 Test Item Value Reference Range Interpretation Comments UA Glucose (test code Negative (10/20/2013 N = UA Glucose) 01:30:00) [facility]ieWzepvbnAKOJFLYJFV6875-37-54 07:30:00 Test Item Value Reference Range Interpretation Comments UA Protein (test code Negative (10/20/2013 N = UA Protein) 01:30:00) [facility]roeUlbuacfUXKMKCNXOY9818-55-53 07:30:00 Test Item Value Reference Range Interpretation Comments UA pH (test code = UA pH) 7.5 1 5.0-8.0 N [facility]roeWfgrgqxIWEBTXNYUO4339-68-58 07:30:00 Test Item Value Reference Range Interpretation Comments UA Turbidity (test code Cloudy A = UA Turbidity) *ABN*(10/20/2013 01:30:00) [facility]roeDfszeyvNTKHQNLRMW0126-59-28 07:30:00 Test Item Value Reference Range Interpretation Comments UA Nitrite (test code Negative (10/20/2013 N = UA Nitrite) 01:30:00) [facility]ieDkpkvecQDRIPPEUFS5769-29-92 07:30:00 Test Item Value Reference Range Interpretation Comments UA Ketones (test code Negative = UA Ketones) *NA*(10/20/2013 01:30:00) [facility]ieSndxycyPWXQVJLYFB7859-06-40 07:30:00 Test Item Value Reference Range Interpretation Comments UA WBC (test code = UA WBC) 0-2 /HPF N [facility]roeTmlnzvjANSFONAQCX5574-03-90 07:30:00 Test Item Value Reference Range Interpretation Comments UA Sq Epi (test code = UA Sq Epi) Few /LPF N [facility]roeZpjnxliKHETLCKSUM4180-92-98 07:30:00 Test Item Value Reference Range Interpretation Comments UA Bili (test code = Negative *NA*(10/20/2013 UA Bili) 01:30:00) [facility]roeOlvfuxxYRMBEJFEIA1345-78-47 07:30:00 Test Item Value Reference Range Interpretation Comments UA RBC (test code 21-50 /HPF See_Comment A [Automate d message] The = UA RBC) system which ge nerated this result tra nsmitted reference range : <=2. The reference range was not used to interpr et this result as normal/abnormal . [facility]roeVifhjtjQPUZDHGHC6646-20-72 07:30:00 Test Item Value Reference Range Interpretation Comments BUN (test code = BUN) 10 7-22 N [facility]roeQpelxueHEEAIXYGDV7801-55-76 07:30:00 Test Item Value Reference Range Interpretation Comments Micro? (test code = Performed (10/20/2013 N Micro?) 01:30:00) [facility]ieNxnxpxeJDLECHCUOV1375-86-32 07:30:00 Test Item Value Reference Range Interpretation Comments UA Leuk Est (test Negative (10/20/2013 N code = UA Leuk Est) 01:30:00) [facility]ieOqhnxwtKEZPPYTJGV2351-41-29 07:30:00 Test Item Value Reference Range Interpretation Comments UA Urobilinogen (test code = UA 0.2 0.1-1.0 N Urobilinogen) [facility]AggjslmIKFGARBMCK7836-01-04 07:30:00 Test Item Value Reference Range Interpretation Comments UA Blood (test code = Large *ABN*(10/20/2013 A UA Blood) 01:30:00) [facility] CenterUaqgjewNMGPOATAO4215-93-59 07:30:00 Test Item Value Reference Range Interpretation Comments hCG Tot (test code = hCG Tot) [address] [facility] CenterCezuahdTLLHGVYDD6010-30-25 07:30:00 Test Item Value Reference Range Interpretation Comments Total Protein (test code = Total 8.2 6.4-8.4 N Protein) [facility] CenterMrislynUIMPFHLQR1946-01-41 07:30:00 Test Item Value Reference Range Interpretation Comments Chloride Lvl (test code = Chloride Lvl) 101 95-109 N [facility] CenterKnxcabySBBWPNTZT1658-73-37 07:30:00 Test Item Value Reference Range Interpretation Comments Creatinine Lvl (test code = Creatinine 0.6 0.5-1.4 N Lvl) [facility] CenterPeuxgjrKOVMGWIWH3775-90-17 07:30:00 Test Item Value Reference Range Interpretation Comments CO2 (test code = CO2) 27 24-32 N [facility] CenterQhrtzdeINUPHWEUV2187-70-75 07:30:00 Test Item Value Reference Range Interpretation Comments Calcium Lvl (test code = Calcium Lvl) 8.9 8.5-10.5 N [facility] CenterCeutypsXDYSZGZAE1642-18-88 07:30:00 Test Item Value Reference Range Interpretation Comments eGFR (test code = eGFR) 134 [facility] CenterLgkxuwkGALFRXYCI5425-37-00 07:30:00 Test Item Value Reference Range Interpretation Comments Albumin Lvl (test code = Albumin Lvl) 3.5 3.5-5.0 N [facility] CenterToryrnoBWEHXLNVZ9863-19-20 07:30:00 Test Item Value Reference Range Interpretation Comments ALANINE AMINOTRANSFERASE 46 See_Comment N [A utomated message] (test code = ALANINE The sys tem which AMINOTRANSFERASE) generated this result transmitted ref erence range: <=65. Th e reference range was not used to int erpret this result as normal/abnormal . [facility] CenterBmljdqqGXAXQMLVM9842-59-93 07:30:00 Test Item Value Reference Range Interpretation Comments ASPARTATE TRANSAMINASE 20 See_Comment N [Aut omated message] (test code = ASPARTATE The s ystem which TRANSAMINASE) generated this result transmitted ref erence range: <=37. Th e reference range was not used to interpr et this result as normal/abnormal . [facility] CenterFplvpliULOPCHLTG0355-86-48 07:30:00 Test Item Value Reference Range Interpretation Comments Alk Phos (test code = Alk Phos) 62 39-136 N [facility] CenterRuhusqnOERLNAZED7182-57-42 07:30:00 Test Item Value Reference Range Interpretation Comments Bili Total (test code = Bili Total) 0.2 0.2-1.3 N [facility] CenterIoglfsjWEXSPYORX2253-21-41 07:30:00 Test Item Value Reference Range Interpretation Comments Potassium Lvl (test code = Potassium 3.6 3.5-5.1 N Lvl) [facility] CenterEotavpeCMVTIASWJ6824-22-96 07:30:00 Test Item Value Reference Range Interpretation Comments Sodium Lvl (test code = Sodium Lvl) 137 135-145 N [facility] CenterVwxtpwjGUROBTQAH1914-47-75 07:30:00 Test Item Value Reference Range Interpretation Comments Glucose Lvl (test code = Glucose Lvl) 87 70-99 N [facility] CenterNguuoibEIZKPXPUF9426-09-57 07:30:00 Test Item Value Reference Range Interpretation Comments BUN (test code = BUN) 10 7-22 N [facility] CenterZdkzmnaTDTZSUJTP5635-54-97 07:30:00 Test Item Value Reference Range Interpretation Comments Creatinine Lvl (test code = Creatinine 0.6 0.5-1.4 N Lvl) [facility] CenterGoveeypMQIKNRTTN4194-29-00 07:30:00 Test Item Value Reference Range Interpretation Comments Glucose Lvl (test code = Glucose Lvl) 87 70-99 N [facility] CenterFpgxsdrIXMRRPCNB6530-69-50 07:30:00 Test Item Value Reference Range Interpretation Comments B/C Ratio (test code = B/C Ratio) 17 6-25 N [facility] CenterMjwaonwCRGDTIAQG0390-64-26 07:30:00 Test Item Value Reference Range Interpretation Comments Globulin (test code = Globulin) 4.7 2.0-4.0 H [facility] CenterRuxodsuKNBPDWUTG7689-83-90 07:30:00 Test Item Value Reference Range Interpretation Comments A/G Ratio (test code = A/G Ratio) 0.7 0.7-1.6 N [facility] CenterYrcghhiBNJUNUBZC0976-21-87 07:30:00 Test Item Value Reference Range Interpretation Comments AGAP (test code = AGAP) 12.6 10.0-20.0 N [facility] HospitalYfdgoouLOKRRWBJFM3586-71-49 07:30:00 Test Item Value Reference Range Interpretation Comments RDW (test code = RDW) 13.2 11.5-14.5 N [facility] HospitalXhbqvdvROBDUKLHOS6788-21-95 07:30:00 Test Item Value Reference Range Interpretation Comments MPV (test code = MPV) 7.9 7.4-10.4 N [facility] HospitalXoptohuVRDPJXZTKX2785-19-94 07:30:00 Test Item Value Reference Range Interpretation Comments Platelet (test code = Platelet) 331 133-450 N [facility] CenterJouhhviVFVNAXPLM7224-31-31 07:30:00 Test Item Value Reference Range Interpretation Comments B/C Ratio (test code = B/C Ratio) 17 6-25 N [facility] HospitalNlnjwhzGZWLAPUYNE5691-22-48 07:30:00 Test Item Value Reference Range Interpretation Comments MCH (test code = MCH) 27.3 pg 27.0-31.0 N [facility] HospitalObgncakCQWQPPBZIF4732-47-52 07:30:00 Test Item Value Reference Range Interpretation Comments MCHC (test code = MCHC) 33.1 32.0-36.0 N [facility] HospitalVchwlnaPVLEAWEUTW4866-26-66 07:30:00 Test Item Value Reference Range Interpretation Comments Hct (test code = Hct) 37.4 36.0-48.0 N [facility] HospitalAsblqvoDDNBSQEXFN1100-94-92 07:30:00 Test Item Value Reference Range Interpretation Comments MCV (test code = MCV) 82.5 81.0-99.0 N [facility] HospitalHaliamhPJPQPANQJO5344-77-27 07:30:00 Test Item Value Reference Range Interpretation Comments Hgb (test code = Hgb) 12.4 12.0-16.0 N [facility] HospitalAlxpbovJCRUPBATLA4298-77-76 07:30:00 Test Item Value Reference Range Interpretation Comments RBC X 10x6 (test code = RBC X 10x6) 4.54 4.20-5.40 N [facility] HospitalDsitfgjFYOPLIVKSD7200-66-00 07:30:00 Test Item Value Reference Range Interpretation Comments WBC X 10x3 (test code = WBC X 10x3) 16.6 3.7-10.4 H [facility] HospitalTjgmpjgPQKJYOCHDG1383-00-61 07:30:00 Test Item Value Reference Range Interpretation Comments Monocytes (test code = Monocytes) 5.7 2.0-12.0 N [facility] HospitalTfnyepfSOAZPCMTPI3005-76-42 07:30:00 Test Item Value Reference Range Interpretation Comments Lymphocytes (test code = Lymphocytes) 19.6 20.0-40.0 L [facility] HospitalXuyjnljDWBHICLNQR7356-47-05 07:30:00 Test Item Value Reference Range Interpretation Comments Basophils (test code = 0.4 See_Comment N [Aut omated message] The Basophils) system which ge nerated this result tra nsmitted reference range : <=1.0. The reference r yolanda was not used to int erpret this result as normal/abnormal . [facility] CenterTnkcmjiQTVPRVMHZ4037-34-73 07:30:00 Test Item Value Reference Range Interpretation Comments Globulin (test code = Globulin) 4.7 2.0-4.0 H [facility] HospitalKzkekmqSGTBFLVYFL9444-39-87 07:30:00 Test Item Value Reference Range Interpretation Comments Eosinophils (test code = 0.6 See_Comment N [A utomated message] The Eosinophils) system which ge nerated this result tra nsmitted reference range : <=4.0. The reference r yolanda was not used to int erpret this result as normal/abnormal . [facility] HospitalZystlqvGSEBKTGWAY4060-69-41 07:30:00 Test Item Value Reference Range Interpretation Comments Segs (test code = Segs) 73.7 45.0-75.0 N [facility] HospitalDqydnifHZPGZRRGKM7764-50-52 07:30:00 Test Item Value Reference Range Interpretation Comments Lymphocytes # (test code = Lymphocytes 3.2 1.0-5.5 N #) [facility] HospitalNbvlvjrNBYMIZLOVG2792-56-11 07:30:00 Test Item Value Reference Range Interpretation Comments Monocytes # (test code 0.9 See_Comment H [Aut omated message] The = Monocytes #) system which generated this result tra nsmitted reference range : <=0.8. The reference r yolanda was not used to int erpret this result as normal/abnormal . [facility]FfbcopiZQSLILTSFD5639-44-95 07:30:00 Test Item Value Reference Range Interpretation Comments Eosinophils # (test code 0.1 See_Comment N [A utomated message] The = Eosinophils #) system whic h generated this result tra nsmitted reference range : <=0.5. The reference r yolanda was not used to int erpret this result as normal/abnormal . [facility] HospitalBnarxinBXVNUOEDNX8690-36-45 07:30:00 Test Item Value Reference Range Interpretation Comments Segs-Bands # (test code = Segs-Bands #) 12.2 1.5-8.1 H [facility] HospitalYalosseMGXHHSFZFS9449-17-35 07:30:00 Test Item Value Reference Range Interpretation Comments Basophils # (test code 0.1 See_Comment N [Aut omated message] The = Basophils #) system which generated this result tra nsmitted reference range : <=0.2. The reference r yolanda was not used to int erpret this result as normal/abnormal . [facility]roeYlwxkdnDKXTOFTYQL6293-74-26 07:30:00 Test Item Value Reference Range Interpretation Comments UA Bacteria (test code = UA Many /HPF N Bacteria) [facility]ieQbggjjwTXWPSIRIFH3002-62-63 07:30:00 Test Item Value Reference Range Interpretation Comments UA Color (test code = Yellow *NA*(10/20/2013 UA Color) 01:30:00) [facility] HospitalJhxfbodJWSIYLXEER3859-04-62 07:30:00 Test Item Value Reference Range Interpretation Comments UA Spec Grav (test code = UA Spec 1.020 1 N Grav) [facility]roeRdliudhPAUMIEMQH0646-09-74 07:30:00 Test Item Value Reference Range Interpretation Comments A/G Ratio (test code = A/G Ratio) 0.7 0.7-1.6 N [facility]roeHqocflfEUSXZJKCYM2761-16-03 07:30:00 Test Item Value Reference Range Interpretation Comments UA Glucose (test code Negative (10/20/2013 N = UA Glucose) 01:30:00) [facility]roeFemaqgcLOSGGTAKDZ7660-58-30 07:30:00 Test Item Value Reference Range Interpretation Comments UA Protein (test code Negative (10/20/2013 N = UA Protein) 01:30:00) [facility]roeFfhkehuMZORKKCPOQ9509-54-08 07:30:00 Test Item Value Reference Range Interpretation Comments UA pH (test code = UA pH) 7.5 1 5.0-8.0 N [facility]ieYscffeyXUPFRZHWWK8338-05-27 07:30:00 Test Item Value Reference Range Interpretation Comments UA Turbidity (test code Cloudy A = UA Turbidity) *ABN*(10/20/2013 01:30:00) [facility]ieUogavhdFLAKTRQKLU4558-65-06 07:30:00 Test Item Value Reference Range Interpretation Comments UA Nitrite (test code Negative (10/20/2013 N = UA Nitrite) 01:30:00) [facility]iePydxacgJHRVMMWCCA9384-76-79 07:30:00 Test Item Value Reference Range Interpretation Comments UA Ketones (test code Negative = UA Ketones) *NA*(10/20/2013 01:30:00) [facility]iePlpjzaiNHNKSZMRJA7473-86-19 07:30:00 Test Item Value Reference Range Interpretation Comments UA WBC (test code = UA WBC) 0-2 /HPF N [facility]ieCinsammQXFRDZFRGZ0732-28-91 07:30:00 Test Item Value Reference Range Interpretation Comments UA Sq Epi (test code = UA Sq Epi) Few /LPF N [facility]ieEfdaeasXEBRQJVNVB3990-74-49 07:30:00 Test Item Value Reference Range Interpretation Comments UA Bili (test code = Negative *NA*(10/20/2013 UA Bili) 01:30:00) [facility]roePvzwfhcPGBMXCWCNL0210-88-24 07:30:00 Test Item Value Reference Range Interpretation Comments UA RBC (test code 21-50 /HPF See_Comment A [Automate d message] The = UA RBC) system which ge nerated this result tra nsmitted reference range : <=2. The reference range was not used to interpr et this result as normal/abnormal . [facility]roeJxpwkxkGUPAAKZLS1211-21-99 07:30:00 Test Item Value Reference Range Interpretation Comments AGAP (test code = AGAP) 12.6 10.0-20.0 N [facility]roeOiuqswxRMRAGWZREY4169-31-96 07:30:00 Test Item Value Reference Range Interpretation Comments Micro? (test code = Performed (10/20/2013 N Micro?) 01:30:00) [facility]roeMzjstsdDSXVSAJNWK4186-40-93 07:30:00 Test Item Value Reference Range Interpretation Comments UA Leuk Est (test Negative (10/20/2013 N code = UA Leuk Est) 01:30:00) [facility]roeZjknfxoWBNXWFOURY1426-02-51 07:30:00 Test Item Value Reference Range Interpretation Comments UA Urobilinogen (test code = UA 0.2 0.1-1.0 N Urobilinogen) [facility]roeJbvjimkLKDCSXSYJN7426-97-40 07:30:00 Test Item Value Reference Range Interpretation Comments UA Blood (test code = Large *ABN*(10/20/2013 A UA Blood) 01:30:00) [facility] CenterTuxccxkIFKEJESEB6871-05-75 07:30:00 Test Item Value Reference Range Interpretation Comments hCG Tot (test code = hCG Tot) [address] [facility] CenterDmlaxnhVKVZUGWNY3694-24-38 07:30:00 Test Item Value Reference Range Interpretation Comments Total Protein (test code = Total 8.2 6.4-8.4 N Protein) [facility] CenterCjgveovHNSBGJEBC0787-30-07 07:30:00 Test Item Value Reference Range Interpretation Comments Chloride Lvl (test code = Chloride Lvl) 101 95-109 N [facility] RegionJoiymnzELNVYKAFUV7227-22-21 07:30:00 Test Item Value Reference Range Interpretation Comments RDW (test code = RDW) 13.2 11.5-14.5 N [facility] CenterXjsuolpKPTWLLJEB0795-61-32 07:30:00 Test Item Value Reference Range Interpretation Comments CO2 (test code = CO2) 27 24-32 N [facility] CenterMkbpbooWFLPZREAD6610-27-18 07:30:00 Test Item Value Reference Range Interpretation Comments Calcium Lvl (test code = Calcium Lvl) 8.9 8.5-10.5 N [facility] CenterWnydvioJFXJGGGEX2620-07-45 07:30:00 Test Item Value Reference Range Interpretation Comments eGFR (test code = eGFR) 134 [facility] CenterNqalrqlKINHNUJYS8531-07-79 07:30:00 Test Item Value Reference Range Interpretation Comments Albumin Lvl (test code = Albumin Lvl) 3.5 3.5-5.0 N [facility] CenterOvatwqfUNJMMRYUU9580-43-53 07:30:00 Test Item Value Reference Range Interpretation Comments ALANINE AMINOTRANSFERASE 46 See_Comment N [A utomated message] (test code = ALANINE The sys tem which AMINOTRANSFERASE) generated this result transmitted ref erence range: <=65. Th e reference range was not used to int erpret this result as normal/abnormal . [facility] CenterCpopglaQBKIYBNQR2817-68-57 07:30:00 Test Item Value Reference Range Interpretation Comments ASPARTATE TRANSAMINASE 20 See_Comment N [Aut omated message] (test code = ASPARTATE The s ystem which TRANSAMINASE) generated this result transmitted ref erence range: <=37. Th e reference range was not used to interpr et this result as normal/abnormal . [facility] CenterEdowcthAEGHLVPGG1987-05-74 07:30:00 Test Item Value Reference Range Interpretation Comments Alk Phos (test code = Alk Phos) 62 39-136 N [facility] CenterDdcljmmCHDKDNTGI0451-39-01 07:30:00 Test Item Value Reference Range Interpretation Comments Bili Total (test code = Bili Total) 0.2 0.2-1.3 N [facility] CenterTldbhkrIMPQKGWFM0548-49-92 07:30:00 Test Item Value Reference Range Interpretation Comments Potassium Lvl (test code = Potassium 3.6 3.5-5.1 N Lvl) [facility] CenterUzwmyuzBKDWSNYSQ9864-63-96 07:30:00 Test Item Value Reference Range Interpretation Comments Sodium Lvl (test code = Sodium Lvl) 137 135-145 N [facility] HospitalCakphemGAJVUILWKH2865-88-30 07:30:00 Test Item Value Reference Range Interpretation Comments MPV (test code = MPV) 7.9 7.4-10.4 N [facility] CenterEzxjjgeJGGTHXPWJ5923-00-42 07:30:00 Test Item Value Reference Range Interpretation Comments BUN (test code = BUN) 10 7-22 N [facility] CenterAgzipujOOQREHSQH7871-25-46 07:30:00 Test Item Value Reference Range Interpretation Comments Creatinine Lvl (test code = Creatinine 0.6 0.5-1.4 N Lvl) [facility] CenterAxpncfoEVWFPWIDT9877-09-00 07:30:00 Test Item Value Reference Range Interpretation Comments Glucose Lvl (test code = Glucose Lvl) 87 70-99 N [facility] CenterZzmirjhFTPRBRZAW3592-24-16 07:30:00 Test Item Value Reference Range Interpretation Comments B/C Ratio (test code = B/C Ratio) 17 6-25 N [facility] CenterTokaidqHKMGIIHKI8406-18-29 07:30:00 Test Item Value Reference Range Interpretation Comments Globulin (test code = Globulin) 4.7 2.0-4.0 H [facility] CenterYbltpvdJXBMREZGG9959-99-57 07:30:00 Test Item Value Reference Range Interpretation Comments A/G Ratio (test code = A/G Ratio) 0.7 0.7-1.6 N [facility] CenterJjuojvmMHIYOXXKD9207-35-21 07:30:00 Test Item Value Reference Range Interpretation Comments AGAP (test code = AGAP) 12.6 10.0-20.0 N [facility] HospitalJhkyqkrBJUCVIPSPO8130-46-80 07:30:00 Test Item Value Reference Range Interpretation Comments RDW (test code = RDW) 13.2 11.5-14.5 N [facility] HospitalAwdtzmyXUGSWBKSJX9937-26-81 07:30:00 Test Item Value Reference Range Interpretation Comments MPV (test code = MPV) 7.9 7.4-10.4 N [facility] HospitalZqvczfaVGCSHARPJG8585-07-29 07:30:00 Test Item Value Reference Range Interpretation Comments Platelet (test code = Platelet) 331 133-450 N [facility] HospitalGsaqdzdWVYVGIDSMJ4124-11-38 07:30:00 Test Item Value Reference Range Interpretation Comments Platelet (test code = Platelet) 331 133-450 N [facility] HospitalJnbzibjEQECLKGMPX3942-29-37 07:30:00 Test Item Value Reference Range Interpretation Comments MCH (test code = MCH) 27.3 pg 27.0-31.0 N [facility] HospitalIrgeaypXBILOJJLMF7512-39-73 07:30:00 Test Item Value Reference Range Interpretation Comments MCHC (test code = MCHC) 33.1 32.0-36.0 N [facility] HospitalSreksviEJXHLOINDN0487-65-89 07:30:00 Test Item Value Reference Range Interpretation Comments Hct (test code = Hct) 37.4 36.0-48.0 N [facility] HospitalAdeivcgHMHSKYFHZG3755-63-21 07:30:00 Test Item Value Reference Range Interpretation Comments MCV (test code = MCV) 82.5 81.0-99.0 N [facility] HospitalPbgfixmBOFOPESKHA6284-81-03 07:30:00 Test Item Value Reference Range Interpretation Comments Hgb (test code = Hgb) 12.4 12.0-16.0 N [facility] HospitalVdzfrhaGEAMBIVWUE1696-34-95 07:30:00 Test Item Value Reference Range Interpretation Comments RBC X 10x6 (test code = RBC X 10x6) 4.54 4.20-5.40 N [facility] HospitalIkjfyeuGEWYTSKHOS8571-50-73 07:30:00 Test Item Value Reference Range Interpretation Comments WBC X 10x3 (test code = WBC X 10x3) 16.6 3.7-10.4 H [facility] HospitalBczvgfxOHPUPVZEBA1143-27-71 07:30:00 Test Item Value Reference Range Interpretation Comments Monocytes (test code = Monocytes) 5.7 2.0-12.0 N [facility] HospitalKhzthljZOUSVALPBY6693-73-39 07:30:00 Test Item Value Reference Range Interpretation Comments Lymphocytes (test code = Lymphocytes) 19.6 20.0-40.0 L [facility] HospitalVbkszzfFTSGGSPYJA6618-15-24 07:30:00 Test Item Value Reference Range Interpretation Comments Basophils (test code = 0.4 See_Comment N [Aut omated message] The Basophils) system which ge nerated this result tra nsmitted reference range : <=1.0. The reference r yolanda was not used to int erpret this result as normal/abnormal . [facility] HospitalGayjmuwHQXGJADUKZ3134-40-55 07:30:00 Test Item Value Reference Range Interpretation Comments MCH (test code = MCH) 27.3 pg 27.0-31.0 N [facility] HospitalFdevyefLOKWSZPGCD0729-11-37 07:30:00 Test Item Value Reference Range Interpretation Comments Eosinophils (test code = 0.6 See_Comment N [A utomated message] The Eosinophils) system which ge nerated this result tra nsmitted reference range : <=4.0. The reference r yolanda was not used to int erpret this result as normal/abnormal . [facility] HospitalCrtzregKWSBZDLFPM0845-31-73 07:30:00 Test Item Value Reference Range Interpretation Comments Segs (test code = Segs) 73.7 45.0-75.0 N [facility] HospitalUqzyoioRJADNOCFYH1830-39-68 07:30:00 Test Item Value Reference Range Interpretation Comments Lymphocytes # (test code = Lymphocytes 3.2 1.0-5.5 N #) [facility] HospitalOtijaagDJJIXPSMJR8851-97-30 07:30:00 Test Item Value Reference Range Interpretation Comments Monocytes # (test code 0.9 See_Comment H [Aut omated message] The = Monocytes #) system which generated this result tra nsmitted reference range : <=0.8. The reference r yolanda was not used to int erpret this result as normal/abnormal . [facility] HospitalLrxqojhZJVJXGYULG7023-52-73 07:30:00 Test Item Value Reference Range Interpretation Comments Eosinophils # (test code 0.1 See_Comment N [A utomated message] The = Eosinophils #) system whic h generated this result tra nsmitted reference range : <=0.5. The reference r yolanda was not used to int erpret this result as normal/abnormal . [facility] HospitalLvinssbRZGJOSCQAF2788-92-60 07:30:00 Test Item Value Reference Range Interpretation Comments Segs-Bands # (test code = Segs-Bands #) 12.2 1.5-8.1 H [facility] HospitalRyibsssWRVBQQVHYS2694-24-40 07:30:00 Test Item Value Reference Range Interpretation Comments Basophils # (test code 0.1 See_Comment N [Aut omated message] The = Basophils #) system which generated this result tra nsmitted reference range : <=0.2. The reference r yolanda was not used to int erpret this result as normal/abnormal . [facility]RuovsznYTUQHTHDDN1879-52-29 07:30:00 Test Item Value Reference Range Interpretation Comments UA Bacteria (test code = UA Many /HPF N Bacteria) [facility] HospitalRpjohbiNSRMRIHSVH3315-88-28 07:30:00 Test Item Value Reference Range Interpretation Comments UA Color (test code = Yellow *NA*(10/20/2013 UA Color) 01:30:00) [facility] HospitalRnkumclQWBQLUWRDD5202-35-78 07:30:00 Test Item Value Reference Range Interpretation Comments UA Spec Grav (test code = UA Spec 1.020 1 N Grav) [facility] HospitalWkscmfbXKZQZVFNZH4719-59-01 07:30:00 Test Item Value Reference Range Interpretation Comments MCHC (test code = MCHC) 33.1 32.0-36.0 N [facility] HospitalIupdkwxQQRKWETCLO7173-49-31 07:30:00 Test Item Value Reference Range Interpretation Comments UA Glucose (test code Negative (10/20/2013 N = UA Glucose) 01:30:00) [facility]KifbbudJLXKDTFNIK1697-39-10 07:30:00 Test Item Value Reference Range Interpretation Comments UA Protein (test code Negative (10/20/2013 N = UA Protein) 01:30:00) [facility]ieBseyjozNLCZXCVMFD1417-13-18 07:30:00 Test Item Value Reference Range Interpretation Comments UA pH (test code = UA pH) 7.5 1 5.0-8.0 N [facility]iePuctwblXIRJXFAMCK8545-37-10 07:30:00 Test Item Value Reference Range Interpretation Comments UA Turbidity (test code Cloudy A = UA Turbidity) *ABN*(10/20/2013 01:30:00) [facility]ieIgaoyoeZUCFHZKAEU9527-39-38 07:30:00 Test Item Value Reference Range Interpretation Comments UA Nitrite (test code Negative (10/20/2013 N = UA Nitrite) 01:30:00) [facility] HospitalKaufgiyPVIEBGUFGT5349-10-75 07:30:00 Test Item Value Reference Range Interpretation Comments UA Ketones (test code Negative = UA Ketones) *NA*(10/20/2013 01:30:00) [facility]UuoaiziDEYHPYSDYO9890-97-57 07:30:00 Test Item Value Reference Range Interpretation Comments UA WBC (test code = UA WBC) 0-2 /HPF N [facility]ieRanabewGYLQOZZZNM6525-84-69 07:30:00 Test Item Value Reference Range Interpretation Comments UA Sq Epi (test code = UA Sq Epi) Few /LPF N [facility]ieYtdqezlYYJQAWLVDM6619-47-67 07:30:00 Test Item Value Reference Range Interpretation Comments UA Bili (test code = Negative *NA*(10/20/2013 UA Bili) 01:30:00) [facility]ieMdxitrcTRNZHGEPYJ6334-16-53 07:30:00 Test Item Value Reference Range Interpretation Comments UA RBC (test code 21-50 /HPF See_Comment A [Automate d message] The = UA RBC) system which ge nerated this result tra nsmitted reference range : <=2. The reference range was not used to interpr et this result as normal/abnormal . [facility]roeBkglxeiZFQNDVLVJD6525-58-43 07:30:00 Test Item Value Reference Range Interpretation Comments Hct (test code = Hct) 37.4 36.0-48.0 N [facility] HospitalXkjdqutRNTFQSXQTI4742-18-47 07:30:00 Test Item Value Reference Range Interpretation Comments Micro? (test code = Performed (10/20/2013 N Micro?) 01:30:00) [facility] HospitalGtirykhZZVTYCWFPS5329-62-11 07:30:00 Test Item Value Reference Range Interpretation Comments UA Leuk Est (test Negative (10/20/2013 N code = UA Leuk Est) 01:30:00) [facility] HospitalHqfyyxyDCOMIVQIUK1626-43-31 07:30:00 Test Item Value Reference Range Interpretation Comments UA Urobilinogen (test code = UA 0.2 0.1-1.0 N Urobilinogen) [facility] HospitalJxsdyqwHIMNUSJCGK7563-27-88 07:30:00 Test Item Value Reference Range Interpretation Comments UA Blood (test code = Large *ABN*(10/20/2013 A UA Blood) 01:30:00) [facility] HospitalJgyozyoNTSNSPBJDX9260-84-01 07:30:00 Test Item Value Reference Range Interpretation Comments MCV (test code = MCV) 82.5 81.0-99.0 N [facility] HospitalZseautgMTHIWSKJLQ2323-92-05 07:30:00 Test Item Value Reference Range Interpretation Comments Hgb (test code = Hgb) 12.4 12.0-16.0 N [facility] HospitalIcfcabdWBNLXIJWUK4209-08-68 07:30:00 Test Item Value Reference Range Interpretation Comments RBC X 10x6 (test code = RBC X 10x6) 4.54 4.20-5.40 N [facility] HospitalSnpygdeSRIEXGPHED8826-76-22 07:30:00 Test Item Value Reference Range Interpretation Comments WBC X 10x3 (test code = WBC X 10x3) 16.6 3.7-10.4 H [facility] HospitalRmefyorTOPHOAOCRW6118-92-71 07:30:00 Test Item Value Reference Range Interpretation Comments Monocytes (test code = Monocytes) 5.7 2.0-12.0 N [facility] HospitalPlnrpwtGHLWHLZFHM8235-19-42 07:30:00 Test Item Value Reference Range Interpretation Comments Lymphocytes (test code = Lymphocytes) 19.6 20.0-40.0 L [facility] HospitalKkufbgzRRFTBJCRJJ7889-92-34 07:30:00 Test Item Value Reference Range Interpretation Comments Basophils (test code = 0.4 See_Comment N [Aut omated message] The Basophils) system which ge nerated this result tra nsmitted reference range : <=1.0. The reference r yolanda was not used to int erpret this result as normal/abnormal . [facility] HospitalAxtbwcuUWIQMTHAOR9240-61-48 07:30:00 Test Item Value Reference Range Interpretation Comments Eosinophils (test code = 0.6 See_Comment N [A utomated message] The Eosinophils) system which ge nerated this result tra nsmitted reference range : <=4.0. The reference r yolanda was not used to int erpret this result as normal/abnormal . [facility] HospitalZzhauvvLPQATWCXPC0983-87-54 07:30:00 Test Item Value Reference Range Interpretation Comments Segs (test code = Segs) 73.7 45.0-75.0 N [facility] HospitalXmmkuedJMTCHAKBSS6832-78-97 07:30:00 Test Item Value Reference Range Interpretation Comments Lymphocytes # (test code = Lymphocytes 3.2 1.0-5.5 N #) [facility] HospitalZplvngpSSDSZHLGXA4870-98-19 07:30:00 Test Item Value Reference Range Interpretation Comments Monocytes # (test code 0.9 See_Comment H [Aut omated message] The = Monocytes #) system which generated this result tra nsmitted reference range : <=0.8. The reference r yolanda was not used to int erpret this result as normal/abnormal . [facility] HospitalFnfnwlhWHBJCPHKLM2229-89-70 07:30:00 Test Item Value Reference Range Interpretation Comments Eosinophils # (test code 0.1 See_Comment N [A utomated message] The = Eosinophils #) system ic h generated this result tra nsmitted reference range : <=0.5. The reference r yolanda was not used to int erpret this result as normal/abnormal . [facility] HospitalXefkkwcYLKUDFZBQP3437-41-99 07:30:00 Test Item Value Reference Range Interpretation Comments Segs-Bands # (test code = Segs-Bands #) 12.2 1.5-8.1 H [facility] HospitalLoqcpjtLBKWPEGQJF2468-23-66 07:30:00 Test Item Value Reference Range Interpretation Comments Basophils # (test code 0.1 See_Comment N [Aut omated message] The = Basophils #) system which generated this result tra nsmitted reference range : <=0.2. The reference r yolanda was not used to int erpret this result as normal/abnormal . [facility]ieBpjrlwaEJHSYVQYST9004-15-09 07:30:00 Test Item Value Reference Range Interpretation Comments UA Bacteria (test code = UA Many /HPF N Bacteria) [facility] HospitalHhrskbnUYHGQNGFUU4271-30-03 07:30:00 Test Item Value Reference Range Interpretation Comments UA Color (test code = Yellow *NA*(10/20/2013 UA Color) 01:30:00) [facility] HospitalIlzznbnTJKUZOPVRG0304-63-02 07:30:00 Test Item Value Reference Range Interpretation Comments UA Spec Grav (test code = UA Spec 1.020 1 N Grav) [facility]ieXggwrgiUYTGPHDJXB7651-10-15 07:30:00 Test Item Value Reference Range Interpretation Comments UA Glucose (test code Negative (10/20/2013 N = UA Glucose) 01:30:00) [facility] HospitalLbhwjetGAFHRYYTXY6846-00-34 07:30:00 Test Item Value Reference Range Interpretation Comments UA Protein (test code Negative (10/20/2013 N = UA Protein) 01:30:00) [facility] HospitalBlilosrWTMBOKZTSY2409-44-92 07:30:00 Test Item Value Reference Range Interpretation Comments UA pH (test code = UA pH) 7.5 1 5.0-8.0 N [facility]ieWiyeahzNYPTWKHCCO6255-39-85 07:30:00 Test Item Value Reference Range Interpretation Comments UA Turbidity (test code Cloudy A = UA Turbidity) *ABN*(10/20/2013 01:30:00) [facility] HospitalXkcrektYQPZQYTYUE0188-26-26 07:30:00 Test Item Value Reference Range Interpretation Comments UA Nitrite (test code Negative (10/20/2013 N = UA Nitrite) 01:30:00) [facility]ieVjoqxpdUTFZKXPTKR4505-60-53 07:30:00 Test Item Value Reference Range Interpretation Comments UA Ketones (test code Negative = UA Ketones) *NA*(10/20/2013 01:30:00) [facility]ieFjtxzrgMHCAEKISWS5409-75-87 07:30:00 Test Item Value Reference Range Interpretation Comments UA WBC (test code = UA WBC) 0-2 /HPF N [facility]ieXeliotbBMEABAOWQY6750-60-82 07:30:00 Test Item Value Reference Range Interpretation Comments UA Sq Epi (test code = UA Sq Epi) Few /LPF N [facility]ieIuxbwdzAUBYVMYYBP6220-72-83 07:30:00 Test Item Value Reference Range Interpretation Comments UA Bili (test code = Negative *NA*(10/20/2013 UA Bili) 01:30:00) [facility]ieTrwrzopJSFBZROACP0247-36-90 07:30:00 Test Item Value Reference Range Interpretation Comments UA RBC (test code 21-50 /HPF See_Comment A [Automate d message] The = UA RBC) system which ge nerated this result tra nsmitted reference range : <=2. The reference range was not used to interpr et this result as normal/abnormal . [facility] HospitalSwequrqLPQXLFFHQC3724-32-53 07:30:00 Test Item Value Reference Range Interpretation Comments Micro? (test code = Performed (10/20/2013 N Micro?) 01:30:00) [facility] CenterWghyewuNYLENUYKG0191-64-10 07:30:00 Test Item Value Reference Range Interpretation Comments hCG Tot (test code = hCG Tot) 78288 [facility] HospitalBimtxqsTMQEWYMKUA5567-23-19 07:30:00 Test Item Value Reference Range Interpretation Comments UA Leuk Est (test Negative (10/20/2013 N code = UA Leuk Est) 01:30:00) [facility]JjqwyhtSXBDEYUDFM1957-90-59 07:30:00 Test Item Value Reference Range Interpretation Comments UA Urobilinogen (test code = UA 0.2 0.1-1.0 N Urobilinogen) [facility]ieOxqqudrICYDFKMHCS0208-61-41 07:30:00 Test Item Value Reference Range Interpretation Comments UA Blood (test code = Large *ABN*(10/20/2013 A UA Blood) 01:30:00) [facility] CenterKhimftqIWRYGLXES4235-46-38 07:30:00 Test Item Value Reference Range Interpretation Comments Total Protein (test code = Total 8.2 6.4-8.4 N Protein) [facility] CenterQjnhwhiIMKEYGDHN2044-88-71 07:30:00 Test Item Value Reference Range Interpretation Comments Calcium Lvl (test code = Calcium Lvl) 8.9 8.5-10.5 N [facility] CenterCniwsmsZFEEMIPPM5891-83-11 07:30:00 Test Item Value Reference Range Interpretation Comments hCG Tot (test code = hCG Tot) 7[address] [facility] CenterSdysqzwGUHEQOQQY0659-46-25 07:30:00 Test Item Value Reference Range Interpretation Comments Total Protein (test code = Total 8.2 6.4-8.4 N Protein) [facility] CenterBiupkwdFYCUVOBZD3015-16-64 07:30:00 Test Item Value Reference Range Interpretation Comments Chloride Lvl (test code = Chloride Lvl) 101 95-109 N [facility] CenterNelojdwVXPDHNFHO6755-32-01 07:30:00 Test Item Value Reference Range Interpretation Comments Chloride Lvl (test code = Chloride Lvl) 101 95-109 N [facility] CenterIaqlmfhOITUNPOXG0973-38-44 07:30:00 Test Item Value Reference Range Interpretation Comments CO2 (test code = CO2) 27 24-32 N [facility] CenterGktlwarUSXOORIEK2107-13-20 07:30:00 Test Item Value Reference Range Interpretation Comments Calcium Lvl (test code = Calcium Lvl) 8.9 8.5-10.5 N [facility] CenterRuzzburIIQJDMJLA6209-65-35 07:30:00 Test Item Value Reference Range Interpretation Comments eGFR (test code = eGFR) 134 [facility] HospitalMegjeudUATSSXSCMK5931-56-94 07:30:00 Test Item Value Reference Range Interpretation Comments MCH (test code = MCH) 27.3 pg 27.0-31.0 N [facility] CenterSeoqowgXVBVLCRQW5030-57-25 07:30:00 Test Item Value Reference Range Interpretation Comments Albumin Lvl (test code = Albumin Lvl) 3.5 3.5-5.0 N [facility] CenterSsblijlBMEZZCLSG6391-97-41 07:30:00 Test Item Value Reference Range Interpretation Comments ALANINE AMINOTRANSFERASE 46 See_Comment N [A utomated message] (test code = ALANINE The sys tem which AMINOTRANSFERASE) generated this result transmitted ref erence range: <=65. Th e reference range was not used to int erpret this result as normal/abnormal . [facility] CenterRizbtuuENYJNAWIF8485-72-93 07:30:00 Test Item Value Reference Range Interpretation Comments ASPARTATE TRANSAMINASE 20 See_Comment N [Aut omated message] (test code = ASPARTATE The s ystem which TRANSAMINASE) generated this result transmitted ref erence range: <=37. Th e reference range was not used to interpr et this result as normal/abnormal . [facility] CenterZlqcmqoCBPHFLZTS9115-59-62 07:30:00 Test Item Value Reference Range Interpretation Comments Alk Phos (test code = Alk Phos) 62 39-136 N [facility] CenterGoiurgdQLVIAPVIN6170-93-62 07:30:00 Test Item Value Reference Range Interpretation Comments Bili Total (test code = Bili Total) 0.2 0.2-1.3 N [facility] CenterXmdjovgJIDVPNQIG2393-07-29 07:30:00 Test Item Value Reference Range Interpretation Comments Potassium Lvl (test code = Potassium 3.6 3.5-5.1 N Lvl) [facility] HospitalUknsqmsPRXLRYZJFN1378-37-64 07:30:00 Test Item Value Reference Range Interpretation Comments MCHC (test code = MCHC) 33.1 32.0-36.0 N [facility] CenterSqiqxjuUHJUBUWMK2032-40-40 07:30:00 Test Item Value Reference Range Interpretation Comments Sodium Lvl (test code = Sodium Lvl) 137 135-145 N [facility] CenterSnduirvTMOADHLPY9977-71-22 07:30:00 Test Item Value Reference Range Interpretation Comments CO2 (test code = CO2) 27 24-32 N [facility] CenterZshaqsyBNWCYTCGL7757-45-72 07:30:00 Test Item Value Reference Range Interpretation Comments BUN (test code = BUN) 10 7-22 N [facility] CenterBygkkozTNLCYHDEV9569-05-05 07:30:00 Test Item Value Reference Range Interpretation Comments Creatinine Lvl (test code = Creatinine 0.6 0.5-1.4 N Lvl) [facility] CenterAnmzareDXNAQASEO6593-25-95 07:30:00 Test Item Value Reference Range Interpretation Comments Glucose Lvl (test code = Glucose Lvl) 87 70-99 N [facility] CenterGjgylhiFUNWGBAWW4903-38-30 07:30:00 Test Item Value Reference Range Interpretation Comments B/C Ratio (test code = B/C Ratio) 17 6-25 N [facility] CenterVmzwffxEGNXBWEZL3132-22-45 07:30:00 Test Item Value Reference Range Interpretation Comments Globulin (test code = Globulin) 4.7 2.0-4.0 H [facility] HospitalKowvtphVSWBQCYFZR4503-51-76 07:30:00 Test Item Value Reference Range Interpretation Comments Hct (test code = Hct) 37.4 36.0-48.0 N [facility] CenterZbcvpvsEROLUWYNJ7778-47-66 07:30:00 Test Item Value Reference Range Interpretation Comments A/G Ratio (test code = A/G Ratio) 0.7 0.7-1.6 N [facility] CenterEmoznjmPSRUMIDVK4655-74-40 07:30:00 Test Item Value Reference Range Interpretation Comments AGAP (test code = AGAP) 12.6 10.0-20.0 N [facility] HospitalUrpaovuGKWUDUSDAY5799-48-97 07:30:00 Test Item Value Reference Range Interpretation Comments RDW (test code = RDW) 13.2 11.5-14.5 N [facility] HospitalAraprbpZJLHDEJCUQ0267-07-02 07:30:00 Test Item Value Reference Range Interpretation Comments MPV (test code = MPV) 7.9 7.4-10.4 N [facility] HospitalDygdzokRCDDZILYXB9456-27-20 07:30:00 Test Item Value Reference Range Interpretation Comments Platelet (test code = Platelet) 331 133-450 N [facility] HospitalGpubniwMVWAGVILYI2709-86-99 07:30:00 Test Item Value Reference Range Interpretation Comments MCV (test code = MCV) 82.5 81.0-99.0 N [facility] HospitalRjzrasqHOBLMDJYPE0342-98-41 07:30:00 Test Item Value Reference Range Interpretation Comments Hgb (test code = Hgb) 12.4 12.0-16.0 N [facility] HospitalFyevddjHGHQOVDYJO2500-65-42 07:30:00 Test Item Value Reference Range Interpretation Comments RBC X 10x6 (test code = RBC X 10x6) 4.54 4.20-5.40 N [facility] [facility]xmaXXICLBOVZV9970-17-18 07:30:00 Test Item Value Reference Range Interpretation Comments WBC X 10x3 (test code = WBC X 10x3) 16.6 3.7-10.4 H [facility] HospitalYypaueuGEOSJWJKNU4318-48-95 07:30:00 Test Item Value Reference Range Interpretation Comments Monocytes (test code = Monocytes) 5.7 2.0-12.0 N [facility] HospitalPvxqhmdLLXYEXKGUZ8847-34-40 07:30:00 Test Item Value Reference Range Interpretation Comments Lymphocytes (test code = Lymphocytes) 19.6 20.0-40.0 L [facility] HospitalImdanaqEYYSRYSBCT2504-09-66 07:30:00 Test Item Value Reference Range Interpretation Comments Basophils (test code = 0.4 See_Comment N [Aut omated message] The Basophils) system which ge nerated this result tra nsmitted reference range : <=1.0. The reference r yolanda was not used to int erpret this result as normal/abnormal . [facility]BscmzfwEZVZSBHCG2875-22-18 07:30:00 Test Item Value Reference Range Interpretation Comments eGFR (test code = eGFR) 134 [facility] HospitalHyfjeahJYYIXYSYGS3903-80-29 07:30:00 Test Item Value Reference Range Interpretation Comments Eosinophils (test code = 0.6 See_Comment N [A utomated message] The Eosinophils) system which ge nerated this result tra nsmitted reference range : <=4.0. The reference r yolanda was not used to int erpret this result as normal/abnormal . [facility] HospitalOrnstojDLDQANIDTP6389-48-31 07:30:00 Test Item Value Reference Range Interpretation Comments Segs (test code = Segs) 73.7 45.0-75.0 N [facility] HospitalXtbwiveIBELGSPWVW4916-78-94 07:30:00 Test Item Value Reference Range Interpretation Comments Lymphocytes # (test code = Lymphocytes 3.2 1.0-5.5 N #) [facility] HospitalJavseewCPUQBNDYLC8538-89-35 07:30:00 Test Item Value Reference Range Interpretation Comments Monocytes # (test code 0.9 See_Comment H [Aut omated message] The = Monocytes #) system which generated this result tra nsmitted reference range : <=0.8. The reference r yolanda was not used to int erpret this result as normal/abnormal . [facility] HospitalHqdaabxNXGEPNJJGR8994-66-98 07:30:00 Test Item Value Reference Range Interpretation Comments Eosinophils # (test code 0.1 See_Comment N [A utomated message] The = Eosinophils #) system whic h generated this result tra nsmitted reference range : <=0.5. The reference r yolanda was not used to int erpret this result as normal/abnormal . [facility] HospitalCnypbemZUFGBCVJXW3899-30-00 07:30:00 Test Item Value Reference Range Interpretation Comments Segs-Bands # (test code = Segs-Bands #) 12.2 1.5-8.1 H [facility] HospitalDvjebsyUAHHYVWPYM1718-00-52 07:30:00 Test Item Value Reference Range Interpretation Comments Basophils # (test code 0.1 See_Comment N [Aut omated message] The = Basophils #) system which generated this result tra nsmitted reference range : <=0.2. The reference r yolanda was not used to int erpret this result as normal/abnormal . [facility]AflhjxqAKHKOFDBHV1908-78-57 07:30:00 Test Item Value Reference Range Interpretation Comments UA Bacteria (test code = UA Many /HPF N Bacteria) [facility]QmlrajlPCLPNHEOIJ4581-05-67 07:30:00 Test Item Value Reference Range Interpretation Comments UA Color (test code = Yellow *NA*(10/20/2013 UA Color) 01:30:00) [facility]ieBmkopsaNLVKDVUEPD5287-07-30 07:30:00 Test Item Value Reference Range Interpretation Comments UA Spec Grav (test code = UA Spec 1.020 1 N Grav) [facility]HgtfnxaPKIMHXOSS3124-91-92 07:30:00 Test Item Value Reference Range Interpretation Comments Albumin Lvl (test code = Albumin Lvl) 3.5 3.5-5.[address] [facility] HospitalHjpbzeuMXLOAVANOL7548-25-67 07:30:00 Test Item Value Reference Range Interpretation Comments UA Glucose (test code Negative (10/20/2013 N = UA Glucose) 01:30:00) [facility]ieXazcgpaUXPGSLWWNT3377-65-74 07:30:00 Test Item Value Reference Range Interpretation Comments UA Protein (test code Negative (10/20/2013 N = UA Protein) 01:30:00) [facility]roeQgknuraZNVDOYYVWI3461-47-25 07:30:00 Test Item Value Reference Range Interpretation Comments UA pH (test code = UA pH) 7.5 1 5.0-8.0 N [facility]roeKlefewaQWJQZVADWF0490-83-98 07:30:00 Test Item Value Reference Range Interpretation Comments UA Turbidity (test code Cloudy A = UA Turbidity) *ABN*(10/20/2013 01:30:00) [facility]roeCuvsfgmDZYWILMOGK4726-61-50 07:30:00 Test Item Value Reference Range Interpretation Comments UA Nitrite (test code Negative (10/20/2013 N = UA Nitrite) 01:30:00) [facility]ieLnyacliWZSFOKMCCC5202-46-36 07:30:00 Test Item Value Reference Range Interpretation Comments UA Ketones (test code Negative = UA Ketones) *NA*(10/20/2013 01:30:00) [facility]ieQxocnocBVYYSIVURG5856-83-98 07:30:00 Test Item Value Reference Range Interpretation Comments UA WBC (test code = UA WBC) 0-2 /HPF N [facility]ieBybngggPONOXATRXD8535-83-06 07:30:00 Test Item Value Reference Range Interpretation Comments UA Sq Epi (test code = UA Sq Epi) Few /LPF N [facility]roeBwowmazEMEZAPTGFG0074-08-33 07:30:00 Test Item Value Reference Range Interpretation Comments UA Bili (test code = Negative *NA*(10/20/2013 UA Bili) 01:30:00) [facility]ieCljnhbfSTRVCJDKBD4790-99-05 07:30:00 Test Item Value Reference Range Interpretation Comments UA RBC (test code 21-50 /HPF See_Comment A [Automate d message] The = UA RBC) system which ge nerated this result tra nsmitted reference range : <=2. The reference range was not used to interpr et this result as normal/abnormal . [facility] CenterBqhtwekWEBLDLSVA8479-41-91 07:30:00 Test Item Value Reference Range Interpretation Comments ALANINE AMINOTRANSFERASE 46 See_Comment N [A utomated message] (test code = ALANINE The sys tem which AMINOTRANSFERASE) generated this result transmitted ref erence range: <=65. Th e reference range was not used to int erpret this result as normal/abnormal . [facility]roeJqvvccyKJSCEYLSIC5379-41-62 07:30:00 Test Item Value Reference Range Interpretation Comments Micro? (test code = Performed (10/20/2013 N Micro?) 01:30:00) [facility]ieZcdxqodNQTIJLEGON3459-32-11 07:30:00 Test Item Value Reference Range Interpretation Comments UA Leuk Est (test Negative (10/20/2013 N code = UA Leuk Est) 01:30:00) [facility]ieTuwwwdnQGZWTKPBVF7840-45-82 07:30:00 Test Item Value Reference Range Interpretation Comments UA Urobilinogen (test code = UA 0.2 0.1-1.0 N Urobilinogen) [facility] CenterJpsvbbzYDBYZLTER3161-20-44 07:30:00 Test Item Value Reference Range Interpretation Comments CO2 (test code = CO2) 27 24-32 N [facility] CenterRczarqjBHZMBKOAC4575-55-14 07:30:00 Test Item Value Reference Range Interpretation Comments Calcium Lvl (test code = Calcium Lvl) 8.9 8.5-10.5 N [facility] CenterNevowoxSBFHRALZP5041-89-34 07:30:00 Test Item Value Reference Range Interpretation Comments eGFR (test code = eGFR) 134 [facility] CenterWulyrueCYNRPVQNL7174-37-68 07:30:00 Test Item Value Reference Range Interpretation Comments Albumin Lvl (test code = Albumin Lvl) 3.5 3.5-5.0 N [facility] CenterRdmgawsUHAWSSKPE4350-61-78 07:30:00 Test Item Value Reference Range Interpretation Comments ALANINE AMINOTRANSFERASE 46 See_Comment N [A utomated message] (test code = ALANINE The sys tem which AMINOTRANSFERASE) generated this result transmitted ref erence range: <=65. Th e reference range was not used to int erpret this result as normal/abnormal . [facility] CenterLwmkxtfUWADMVCHW7757-99-87 07:30:00 Test Item Value Reference Range Interpretation Comments ASPARTATE TRANSAMINASE 20 See_Comment N [Aut omated message] (test code = ASPARTATE The s ystem which TRANSAMINASE) generated this result transmitted ref erence range: <=37. Th e reference range was not used to interpr et this result as normal/abnormal . [facility] CenterEimtleaRMRHSCWEF9762-36-45 07:30:00 Test Item Value Reference Range Interpretation Comments Alk Phos (test code = Alk Phos) 62 39-136 N [facility] CenterGvqqujeXMIPZHNQI7579-69-11 07:30:00 Test Item Value Reference Range Interpretation Comments Bili Total (test code = Bili Total) 0.2 0.2-1.3 N [facility] CenterOjtbqbeQPDVEMGZF7007-92-57 07:30:00 Test Item Value Reference Range Interpretation Comments Potassium Lvl (test code = Potassium 3.6 3.5-5.1 N Lvl) [facility] CenterZcoaryzRPNHYNTLX4397-77-02 07:30:00 Test Item Value Reference Range Interpretation Comments Sodium Lvl (test code = Sodium Lvl) 137 135-145 N [facility]roeUjtjnnfXJPMKSSHMP3648-27-61 07:30:00 Test Item Value Reference Range Interpretation Comments UA Blood (test code = Large *ABN*(10/20/2013 A UA Blood) 01:30:00) [facility] CenterFuhhchyBYELGQEAM8832-17-74 07:30:00 Test Item Value Reference Range Interpretation Comments BUN (test code = BUN) 10 7-22 N [facility] CenterOclucwvCJRSJRTOL7938-13-96 07:30:00 Test Item Value Reference Range Interpretation Comments Creatinine Lvl (test code = Creatinine 0.6 0.5-1.4 N Lvl) [facility] CenterGfpwsrbXRNZXMSEL2882-49-76 07:30:00 Test Item Value Reference Range Interpretation Comments Glucose Lvl (test code = Glucose Lvl) 87 70-99 N [facility] CenterIsqrvttXXNYQDTXS4994-09-76 07:30:00 Test Item Value Reference Range Interpretation Comments B/C Ratio (test code = B/C Ratio) 17 6-25 N [facility] CenterCwuzqjmJXPESYFGU8115-53-96 07:30:00 Test Item Value Reference Range Interpretation Comments Globulin (test code = Globulin) 4.7 2.0-4.0 H [facility] CenterOzwcfepJNEVQTQIX3182-23-17 07:30:00 Test Item Value Reference Range Interpretation Comments A/G Ratio (test code = A/G Ratio) 0.7 0.7-1.6 N [facility] CenterSwwtafjVYEJTUGSM3330-22-69 07:30:00 Test Item Value Reference Range Interpretation Comments AGAP (test code = AGAP) 12.6 10.0-20.0 N [facility] HospitalOzmomwnCXKCRFSEZH1716-55-10 07:30:00 Test Item Value Reference Range Interpretation Comments RDW (test code = RDW) 13.2 11.5-14.5 N [facility] HospitalIpbqipaZAHYSKYDRY8204-19-98 07:30:00 Test Item Value Reference Range Interpretation Comments MPV (test code = MPV) 7.9 7.4-10.4 N [facility] HospitalVknvpmaBPHFSQQBTP3268-58-63 07:30:00 Test Item Value Reference Range Interpretation Comments Platelet (test code = Platelet) 331 133-450 N [facility] HospitalXrjvoflNPOQRSWXHW3072-86-09 07:30:00 Test Item Value Reference Range Interpretation Comments MCH (test code = MCH) 27.3 pg 27.0-31.0 N [facility] HospitalOpfbypuALKDFWXSZZ2526-65-27 07:30:00 Test Item Value Reference Range Interpretation Comments MCHC (test code = MCHC) 33.1 32.0-36.0 N [facility] HospitalOxmzvcqFZIYMVUCHW1984-66-33 07:30:00 Test Item Value Reference Range Interpretation Comments Hct (test code = Hct) 37.4 36.0-48.0 N [facility] HospitalGeytsvxUSANXPIAZS1527-30-74 07:30:00 Test Item Value Reference Range Interpretation Comments MCV (test code = MCV) 82.5 81.0-99.0 N [facility] HospitalWlsrrihYLKNXDVSUD7388-33-04 07:30:00 Test Item Value Reference Range Interpretation Comments Hgb (test code = Hgb) 12.4 12.0-16.0 N [facility] HospitalHrohodhKLKLWJHSYO7223-39-47 07:30:00 Test Item Value Reference Range Interpretation Comments RBC X 10x6 (test code = RBC X 10x6) 4.54 4.20-5.40 N [facility] HospitalWxybsdwLLORIKFYEL6708-53-00 07:30:00 Test Item Value Reference Range Interpretation Comments WBC X 10x3 (test code = WBC X 10x3) 16.6 3.7-10.4 H [facility] HospitalVyohkjpMOMENOYNPE5921-28-17 07:30:00 Test Item Value Reference Range Interpretation Comments Monocytes (test code = Monocytes) 5.7 2.0-12.0 N [facility] HospitalHvkqtqaIPDOTZICLT5700-05-29 07:30:00 Test Item Value Reference Range Interpretation Comments Lymphocytes (test code = Lymphocytes) 19.6 20.0-40.0 L [facility] HospitalAjlcgaaQJTWWXZWEH9715-36-60 07:30:00 Test Item Value Reference Range Interpretation Comments Basophils (test code = 0.4 See_Comment N [Aut omated message] The Basophils) system which ge nerated this result tra nsmitted reference range : <=1.0. The reference r yolanda was not used to int erpret this result as normal/abnormal . [facility] HospitalHundkkgPIUEGWMZVF9296-15-26 07:30:00 Test Item Value Reference Range Interpretation Comments Eosinophils (test code = 0.6 See_Comment N [A utomated message] The Eosinophils) system which ge nerated this result tra nsmitted reference range : <=4.0. The reference r yolanda was not used to int erpret this result as normal/abnormal . [facility] HospitalMbvbmpvHOZJRNGNNP6756-31-56 07:30:00 Test Item Value Reference Range Interpretation Comments Segs (test code = Segs) 73.7 45.0-75.0 N [facility] HospitalOgcgqpvFEUEESPQZG7851-80-77 07:30:00 Test Item Value Reference Range Interpretation Comments Lymphocytes # (test code = Lymphocytes 3.2 1.0-5.5 N #) [facility] HospitalJgvfpsdYSVHGWRKZV0244-03-42 07:30:00 Test Item Value Reference Range Interpretation Comments Monocytes # (test code 0.9 See_Comment H [Aut omated message] The = Monocytes #) system which generated this result tra nsmitted reference range : <=0.8. The reference r yolanda was not used to int erpret this result as normal/abnormal . [facility] HospitalWazyesxKNLFWBEUXS2661-95-95 07:30:00 Test Item Value Reference Range Interpretation Comments Eosinophils # (test code 0.1 See_Comment N [A utomated message] The = Eosinophils #) system whic h generated this result tra nsmitted reference range : <=0.5. The reference r yolanda was not used to int erpret this result as normal/abnormal . [facility] HospitalZmihwdgLFXKJYXEKQ4943-22-60 07:30:00 Test Item Value Reference Range Interpretation Comments Segs-Bands # (test code = Segs-Bands #) 12.2 1.5-8.1 H [facility] HospitalAdxahmoHSQFZUFATW1645-84-22 07:30:00 Test Item Value Reference Range Interpretation Comments Basophils # (test code 0.1 See_Comment N [Aut omated message] The = Basophils #) system which generated this result tra nsmitted reference range : <=0.2. The reference r yolanda was not used to int erpret this result as normal/abnormal . [facility]ieAdoajgaBKIUOXWJBK9086-56-59 07:30:00 Test Item Value Reference Range Interpretation Comments UA Bacteria (test code = UA Many /HPF N Bacteria) [facility]ieLanixssXDOGYGOKTC8211-63-19 07:30:00 Test Item Value Reference Range Interpretation Comments UA Color (test code = Yellow *NA*(10/20/2013 UA Color) 01:30:00) [facility]roeIusdutgYHSXEXFERK3013-23-99 07:30:00 Test Item Value Reference Range Interpretation Comments UA Spec Grav (test code = UA Spec 1.020 1 N Grav) [facility]roeOrpauhxXVGDVHKJI8226-93-65 07:30:00 Test Item Value Reference Range Interpretation Comments hCG Tot (test code = hCG Tot) [address] [facility]ieXbankadYWRMCBKMXS4960-69-08 07:30:00 Test Item Value Reference Range Interpretation Comments UA Glucose (test code Negative (10/20/2013 N = UA Glucose) 01:30:00) [facility]ieHrcruewBCEGKXXKPT5923-02-94 07:30:00 Test Item Value Reference Range Interpretation Comments UA Protein (test code Negative (10/20/2013 N = UA Protein) 01:30:00) [facility]IhpxdrwKBQSSPUINM4144-18-20 07:30:00 Test Item Value Reference Range Interpretation Comments UA pH (test code = UA pH) 7.5 1 5.0-8.0 N [facility] HospitalRoakmzwZDLXBJBPYK2540-77-50 07:30:00 Test Item Value Reference Range Interpretation Comments UA Turbidity (test code Cloudy A = UA Turbidity) *ABN*(10/20/2013 01:30:00) [facility] HospitalPudjeazCHYWGEAILJ4179-60-07 07:30:00 Test Item Value Reference Range Interpretation Comments UA Nitrite (test code Negative (10/20/2013 N = UA Nitrite) 01:30:00) [facility] HospitalTalohtuHYOKTCVZMQ4002-11-70 07:30:00 Test Item Value Reference Range Interpretation Comments UA Ketones (test code Negative = UA Ketones) *NA*(10/20/2013 01:30:00) [facility] HospitalNgioeqbTIAUYDQHBO5212-77-71 07:30:00 Test Item Value Reference Range Interpretation Comments UA WBC (test code = UA WBC) 0-2 /HPF N [facility] HospitalIbfegqyWEJZRUORBZ9587-45-52 07:30:00 Test Item Value Reference Range Interpretation Comments UA Sq Epi (test code = UA Sq Epi) Few /LPF N [facility] HospitalLdiserxLPPFUHWFYM2433-37-29 07:30:00 Test Item Value Reference Range Interpretation Comments UA Bili (test code = Negative *NA*(10/20/2013 UA Bili) 01:30:00) [facility] HospitalEpkuzrvXFUXZJKKDO4157-03-75 07:30:00 Test Item Value Reference Range Interpretation Comments UA RBC (test code 21-50 /HPF See_Comment A [Automate d message] The = UA RBC) system which ge nerated this result tra nsmitted reference range : <=2. The reference range was not used to interpr et this result as normal/abnormal . [facility] HospitalSctmgnsSQFBNXNMNT5091-42-10 07:30:00 Test Item Value Reference Range Interpretation Comments Micro? (test code = Performed (10/20/2013 N Micro?) 01:30:00) [facility] HospitalRqbloizCJMVNDSGVI8157-45-27 07:30:00 Test Item Value Reference Range Interpretation Comments UA Leuk Est (test Negative (10/20/2013 N code = UA Leuk Est) 01:30:00) [facility]roeMygkinzJFHSQBSQGZ8957-28-94 07:30:00 Test Item Value Reference Range Interpretation Comments UA Urobilinogen (test code = UA 0.2 0.1-1.0 N Urobilinogen) [facility]roeAdthdnnFUYKKLYIKS7329-13-55 07:30:00 Test Item Value Reference Range Interpretation Comments UA Blood (test code = Large *ABN*(10/20/2013 A UA Blood) 01:30:00) [facility] CenterAzgkpsgAVXMCCOGU1041-51-61 07:30:00 Test Item Value Reference Range Interpretation Comments hCG Tot (test code = hCG Tot) 02493 [facility] CenterEsootucYMFWCYGAI0009-34-16 07:30:00 Test Item Value Reference Range Interpretation Comments Total Protein (test code = Total 8.2 6.4-8.4 N Protein) [facility] CenterYclrttgYOVYXVVRI7458-31-26 07:30:00 Test Item Value Reference Range Interpretation Comments Chloride Lvl (test code = Chloride Lvl) 101 95-109 N [facility] CenterYymbhwyGDNLPTONT2169-99-89 07:30:00 Test Item Value Reference Range Interpretation Comments Total Protein (test code = Total 8.2 6.4-8.4 N Protein) [facility] CenterEtrzmvrOERUGIJLY5251-33-63 07:30:00 Test Item Value Reference Range Interpretation Comments Chloride Lvl (test code = Chloride Lvl) 101 95-109 N [facility] CenterXbwtjnxLZHXBJUUH7534-45-39 07:30:00 Test Item Value Reference Range Interpretation Comments ASPARTATE TRANSAMINASE 20 See_Comment N [Aut omated message] (test code = ASPARTATE The s ystem which TRANSAMINASE) generated this result transmitted ref erence range: <=37. Th e reference range was not used to interpr et this result as normal/abnormal . [facility] CenterNzlhujiXXDOVOJHV8427-82-78 07:30:00 Test Item Value Reference Range Interpretation Comments CO2 (test code = CO2) 27 24-32 N [facility] CenterHliyxzoJAAQWUZYC9720-18-27 07:30:00 Test Item Value Reference Range Interpretation Comments Calcium Lvl (test code = Calcium Lvl) 8.9 8.5-10.5 N [facility] CenterFpafvsdQFNBAILII3982-72-86 07:30:00 Test Item Value Reference Range Interpretation Comments eGFR (test code = eGFR) 134 [facility] CenterVbdwawhBQQJWHTEV0465-60-66 07:30:00 Test Item Value Reference Range Interpretation Comments Albumin Lvl (test code = Albumin Lvl) 3.5 3.5-5.0 N [facility] CenterExzqnqrFCUGWBQJE6578-58-61 07:30:00 Test Item Value Reference Range Interpretation Comments ALANINE AMINOTRANSFERASE 46 See_Comment N [A utomated message] (test code = ALANINE The sys tem which AMINOTRANSFERASE) generated this result transmitted ref erence range: <=65. Th e reference range was not used to int erpret this result as normal/abnormal . [facility] CenterJeebejgXKZWYYJGW4335-72-57 07:30:00 Test Item Value Reference Range Interpretation Comments ASPARTATE TRANSAMINASE 20 See_Comment N [Aut omated message] (test code = ASPARTATE The s ystem which TRANSAMINASE) generated this result transmitted ref erence range: <=37. Th e reference range was not used to interpr et this result as normal/abnormal . [facility]
[2023-04-26] MEDS ORDERED: NA CHLORIDE 0.9% 1,000 ML ONE ×2 (13:24→13:53)
[2023-04-26] MEDS ORDERED: ONDANSETRON 4 MG/2 ML VIAL ONE (13:53)
[2023-04-26] MEDS ORDERED: HYDROMORPHONE HCL 1 MG/ML INJ ONE ×4 (13:53→17:49)
[2023-04-26] MEDS ORDERED: Levofloxacin500mg IV 500 MG/100 ML BAG IV ONE (13:53)
[2023-04-26 14:14] LABS: Absolute Lymphocytes (CBC) 1.1 K/uL (0.7-4.9); Hematocrit 34.8 % (36.0-45.0); Lymphocytes % 8.3 % (15.3-44.8); MCV 76.8 fL (80-100); RBC Red Blood Cell Count 4.53 M/uL (3.86-4.86)
[2023-04-26 14:18] LABS: Bilirubin Total 0.4 mg/dL (0.2-1.0); Potassium 3.2 mEq/L (3.5-5.1); Protein, Total 8.6 g/dL (6.4-8.2)
--- NOTE | 2023-04-26 15:01 | RAD REPORT ---
EXAM DESCRIPTION: RAD - Chest Single View - 04/26/2023 2:51 pm CLINICAL HISTORY: mastoiditis COMPARISON: No comparisons FINDINGS: Lines: None. Lungs: No evidence of edema or pneumonia. Pleural: No significant pleural effusions or pneumothorax. Cardiac: The heart size is within normal limits. Mediastinum: Within normal limits. Bones: No acute fractures. Other: None IMPRESSION: No acute cardiopulmonary disease.
[2023-04-26 15:31] LABS: Specific Gravity 1.014 (1.005-1.030); Urine Bilirubin NEGATIVE (Negative); Urine Blood Negative (Negative); Urine Clarity Clear (Clear); Urine Color Light-Yellow (Yellow); Urine Glucose NEGATIVE (Negative); Urine Protein NEGATIVE (Negative); Urine Urobilinogen 1+ (Normal)
[2023-04-26] MEDS ORDERED: VANCOMYCIN 500 MG/VIAL ONE (15:36)
[2023-04-26] MEDS ORDERED: CEFTRIAXONE 1000 MG/VIAL ONE (15:36)
[2023-04-26] MEDS ORDERED: POTASSIUM 25 MEQ EFFERV TAB ONE (15:36)
[2023-04-26] MEDS ORDERED: VANCOMYCIN 1 GM/VIAL ONE (15:36)
[2023-04-26] MEDS ORDERED: NA CHLORIDE 0.9% 250 ML ONE (15:37)
[2023-04-26] MEDS ORDERED: NA CHLORIDE 0.9% 2,000 ML ONE (15:37)
[2023-04-26] MEDS ORDERED: NA CHLORIDE 0.9% 100 ML ONE (15:37)
--- NOTE | 2023-04-26 16:36 | ER ---
Nurse's Notes [facility] Name: Sonia Abbasi Age: 27 yrs Sex: Female : 1995 Arrival Date: 04/26/2023 Time: 12:41 Bed 17 Private MD: Diagnosis: Acute mastoiditis;Influenza due to other identified influenza virus with other respiratory manifestations-flu B;Hypokalemia Presentation: 04/26 13:03 Chief complaint: Patient states: R ear pain for 2 days. + Congestion, feels hot like hb she has fever, now L ear hurts also. 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 Coronavirus screen: Vaccine status: Patient reports being unvaccinated. Client denies travel out of the [place] in the last 14 days. congestion, fatigue, fever, headache, Client presents with at least one sign or symptom that may indicate coronavirus-19. Standard/surgical mask placed on the client. Ebola Screen: Patient denies travel to an Ebola-affected area in the 21 days before illness onset. Initial Sepsis Screen: Does the patient meet any 2 criteria? No. Patient's initial sepsis screen is negative. Does the patient have a suspected source of infection? Yes: Other: ear pain. Risk Assessment: Do you want to hurt yourself or someone else? Patient reports no desire to harm self or others. Onset of symptoms was April 25, 2023. 13:03 Method Of Arrival: Ambulatory 13:03 Acuity: PAO 4 hb Triage Assessment: 13:04 General: Appears uncomfortable, Behavior is calm, cooperative, appropriate for age. ll1 Pain: Complains of pain in right ear and right mastoid area Quality of pain is described as aching, throbbing. EENT: Reports nasal congestion. EENT: Reports pain in right ear. Neuro: Reports headache. Historical: - Allergies: 13:03 Amoxicillin; hb - PMHx: 13:03 None; hb - PSHx: 13:03 Tonsillectomy; hb - Immunization history:: Client reports having NOT received the Covid vaccine. - Social history:: Smoking status: Patient denies any tobacco usage or history of. Screenin:06 [facility] ED Fall Risk Assessment (Adult) Score/Fall Risk Level 0 - 2 = Low Risk. Abuse iw screen: Denies threats or abuse. Denies injuries from another. Nutritional screening: No deficits noted. Tuberculosis screening: No symptoms or risk factors identified. Assessment: 13:20 General: Appears in no apparent distress. uncomfortable, Behavior is calm, cooperative, nj1 crying. Pain: Complains of pain in right ear Pain currently is 10 out of 10 on a pain scale. 13:20 Neuro: Level of Consciousness is awake, alert, obeys commands, Oriented to person, nj1 place, time, situation. Neuro: Reports Fatigue, lack of energy. Cardiovascular: Patient's skin is warm and dry. Respiratory: Airway is patent Respiratory effort is even, unlabored. EENT: Reports nasal congestion pain in right ear. 15:00 Reassessment: Patient appears in no apparent distress at this time. Patient and/or nj1 family updated on plan of care and expected duration. Pain level reassessed. Patient is alert, oriented x 3, equal unlabored respirations, skin warm/dry/pink. 16:00 Reassessment: Patient appears in no apparent distress at this time. Patient and/or nj1 family updated on plan of care and expected duration. Pain level reassessed. Patient is alert, oriented x 3, equal unlabored respirations, skin warm/dry/pink. Patient states feeling better. 18:00 Reassessment: Patient appears in no apparent distress at this time. Patient and/or iw family updated on plan of care and expected duration. Pain level reassessed. pain 10/10, medicated with 1 mg Dilaudid IVP. 18:40 Reassessment: Patient appears in no apparent distress at this time. Patient and/or nj1 family updated on plan of care and expected duration. Pain level reassessed. Patient is alert, oriented x 3, equal unlabored respirations, skin warm/dry/pink. Patient states feeling better. Vital Signs: 13:03 BP 154 / 95; Pulse 115; Resp 16; Temp 99.6(O); Pulse Ox 100% on R/A; Weight 101.15 kg; hb Height 5 ft. 1 in. ; Pain 10/10; 15:00 BP 121 / 72; Pulse 113; Resp 20; Pulse Ox 100% on R/A; Pain 7/10; nj1 16:00 BP 137 / 86; Pulse 106; Resp 16; Temp 98.8(O); Pulse Ox 100% ; Pain 8/10; nj1 17:55 BP 144 / 99; Pulse 109; Resp 16; Pulse Ox 100% on R/A; Pain 10/10; iw 18:50 BP 141 / 90; Pulse 108; Resp 18; Pulse Ox 99% ; Pain 8/10; nj1 13:03 Body Mass Index 42.14 (101.15 kg, 154.94 cm) hb 13:03 Pain Scale: Adult hb 15:00 Pain Scale: Adult nj1 16:00 Pain Scale: Adult nj1 17:55 Pain Scale: Adult iw 18:50 Pain Scale: Adult nj1 ED Course: 12:42 Patient arrived in ED. am2 12:42 Arm band placed on Patient placed in an exam room, on a stretcher. hb 12:45 Laine Esteban FNP-C is PHCP. snw 12:45 Farzaneh Humphries MD is Attending Physician. snw 13:05 Triage completed. hb 13:10 Sravani Fajardo, TOMER is Primary Nurse. nj1 13:20 Inserted saline lock: 20 gauge in right antecubital area, using aseptic technique. nj1 Blood collected. 14:52 Chest Single View XRAY In Process Unspecified. EDMS 15:02 EKG done, by ED staff, reviewed by Laine KRUEGER. mb4 15:07 Urine collected: clean catch specimen, clear. mb4 16:34 Kasey Anderson MD is Referral Physician. snw 18:06 Patient has correct armband on for positive identification. Provided Education on: pain iw medication . 18:50 No provider procedures requiring assistance completed. IV discontinued, intact, nj1 bleeding controlled. Administered Medications: 13:20 Drug: NS 0.9% IV (30 ml/kg) 30 ml/kg Route: IV; Rate: bolus; Site: right antecubital; nj1 18:30 Follow up: Response: No adverse reaction; IV Status: Completed infusion; IV Intake: nj1 3000ml 13:55 Drug: HYDROmorphone IM 1 mg Route: IM; Site: right gluteus; nj1 15:00 Follow up: Response: No adverse reaction; Pain is decreased nj1 15:42 Drug: Rocephin IV 1 grams Route: IV; Rate: calculated rate; Site: right antecubital; nj1 16:00 Follow up: Response: No adverse reaction; IV Status: Completed infusion; IV Intake: nj1 100ml 15:46 Drug: Potassium PO Effervescent Tablet 50 mEq Route: PO; nj1 16:00 Follow up: Response: No adverse reaction nj1 16:04 Drug: vancoMYCIN IVPB 1.5 grams Route: IVPB; Rate: calculated rate; Site: right nj1 antecubital; 18:40 Follow up: Response: No adverse reaction; IV Status: Completed infusion; IV Intake: nj1 250ml 17:55 Drug: HYDROmorphone IVP 1 mg Route: IVP; Site: right antecubital; iw 18:39 Follow up: Response: No adverse reaction; Pain is decreased iw 18:05 Drug: Decadron - Dexamethasone IVP 10 mg Route: IVP; Site: right antecubital; iw 18:39 Follow up: Response: No adverse reaction iw Medication: 18:50 VIS not applicable for this client. nj1 Intake: 16:00 IV: 100ml; Total: 100ml. nj1 18:30 IV: 3000ml; Total: 3100ml. nj1 18:40 IV: 250ml; Total: 3350ml. nj1 Outcome: 16:35 Discharge ordered by . tali 18:50 Discharged to home ambulatory, with family. nj1 18:50 Condition: stable 18:50 Discharge instructions given to patient, Instructed on discharge instructions, follow up and referral plans. medication usage, Demonstrated understanding of instructions, follow-up care, medications, Prescriptions given X 3. 18:59 Patient left the ED. nj1 Signatures: Dispatcher [employer] EDME Laine Esteban, MAORI LIAISON ADVISER-C MAORI LIAISON ADVISER-Csnw Loretta Monsivais RN RN Marycruz Gerber RN TOMER Liset Holloway Fozia Izquierdo 4 Michel Mckinney RN RN ll1 Sravani Fajardo RN RN nj1
--- NOTE | 2023-04-26 16:36 | EDPHYS ---
Physician Documentation [facility] Name: Sonia Abbasi Age: 27 yrs Sex: Female : 1995 Arrival Date: 04/26/2023 Time: 12:41 Bed 17 Private MD: ED Physician Farzaneh Humphries HPI: 04/26 13:11 This 27 yrs old Female presents to ER via Ambulatory with complaints of Ear snw Pain. 13:11 Onset: The symptoms/episode began/occurred suddenly, 3 day(s) ago, and became worse and snw became persistent. Severity of symptoms: At their worst the symptoms were severe incapacitating. The patient has not recently seen a physician. Historical: - Allergies: 13:03 Amoxicillin; hb - PMHx: 13:03 None; hb - PSHx: 13:03 Tonsillectomy; hb - Immunization history:: Client reports having NOT received the Covid vaccine. - Social history:: Smoking status: Patient denies any tobacco usage or history of. ROS: 13:11 Eyes: Negative for injury, pain, redness, and discharge. snw 13:11 Neck: Negative for injury, pain, and swelling, Cardiovascular: Negative for chest pain, palpitations, and edema, Respiratory: Negative for shortness of breath, cough, wheezing, and pleuritic chest pain, Abdomen/GI: Negative for abdominal pain, nausea, vomiting, diarrhea, and constipation, Back: Negative for injury and pain, : Negative for injury, bleeding, discharge, and swelling, MS/Extremity: Negative for injury and deformity, Skin: Negative for injury, rash, and discoloration, Neuro: Negative for headache, weakness, numbness, tingling, and seizure, Psych: Negative for depression, anxiety, suicide ideation, homicidal ideation, and hallucinations. 13:11 Constitutional: Positive for body aches, chills, malaise, poor PO intake. 13:11 ENT: Positive for ear pain. Exam: 13:09 Head/Face: Normocephalic, atraumatic. Eyes: Pupils equal round and reactive to light, snw extra-ocular motions intact. Lids and lashes normal. Conjunctiva and sclera are non-icteric and not injected. Cornea within normal limits. Periorbital areas with no swelling, redness, or edema. 13:09 Neck: Trachea midline, no thyromegaly or masses palpated, and no cervical lymphadenopathy. Supple, full range of motion without nuchal rigidity, or vertebral point tenderness. No Meningismus. Chest/axilla: Normal chest wall appearance and motion. Nontender with no deformity. No lesions are appreciated. 13:09 Respiratory: Lungs have equal breath sounds bilaterally, clear to auscultation and percussion. No rales, rhonchi or wheezes noted. No increased work of breathing, no retractions or nasal flaring. Abdomen/GI: Soft, non-tender, with normal bowel sounds. No distension or tympany. No guarding or rebound. No evidence of tenderness throughout. Back: No spinal tenderness. No costovertebral tenderness. Full range of motion. Skin: Warm, dry with normal turgor. Normal color with no rashes, no lesions, and no evidence of cellulitis. MS/ Extremity: Pulses equal, no cyanosis. Neurovascular intact. Full, normal range of motion. Neuro: Awake and alert, GCS 15, oriented to person, place, time, and situation. Cranial nerves II-XII grossly intact. Motor strength 5/5 in all extremities. Sensory grossly intact. Cerebellar exam normal. Normal gait. Psych: Awake, alert, with orientation to person, place and time. Behavior, mood, and affect are within normal limits. 13:09 Constitutional: The patient appears awake, obviously ill, in obvious pain. 13:09 ENT: External ear(s): pain with movement, swelling, that is moderate, that is severe, of the pinna of right ear, right ear canal and right mastoid area, Ear canal(s): swelling, that is severe, of the right canal, Nose: nasal drainage, that is clear, Mouth: is normal, Posterior pharynx: erythema, that is moderate, Voice: is normal. 13:09 Cardiovascular: Rate: tachycardic, Rhythm: regular, Heart sounds: normal. Vital Signs: 13:03 BP 154 / 95; Pulse 115; Resp 16; Temp 99.6(O); Pulse Ox 100% on R/A; Weight 101.15 kg; hb Height 5 ft. 1 in. ; Pain 10/10; 15:00 BP 121 / 72; Pulse 113; Resp 20; Pulse Ox 100% on R/A; Pain 7/10; nj1 16:00 BP 137 / 86; Pulse 106; Resp 16; Temp 98.8(O); Pulse Ox 100% ; Pain 8/10; nj1 17:55 BP 144 / 99; Pulse 109; Resp 16; Pulse Ox 100% on R/A; Pain 10/10; iw 18:50 BP 141 / 90; Pulse 108; Resp 18; Pulse Ox 99% ; Pain 8/10; nj1 13:03 Body Mass Index 42.14 (101.15 kg, 154.94 cm) hb 13:03 Pain Scale: Adult hb 15:00 Pain Scale: Adult nj1 16:00 Pain Scale: Adult nj1 17:55 Pain Scale: Adult iw 18:50 Pain Scale: Adult nj1 MDM: 12:46 Patient medically screened. snw 16:43 Differential diagnosis: otitis media, otitis externa, acute otalgia. Data reviewed: snw vital signs, nurses notes, lab test result(s). I considered the following discharge prescriptions or medication management in the emergency department Medications were administered in the Emergency Department. See MAR. Counseling: I had a detailed discussion with the patient and/or guardian regarding: the historical points, exam findings, and any diagnostic results supporting the discharge/admit diagnosis, the presence of at least one elevated blood pressure reading (>120/80) during this emergency department visit, lab results, the need for outpatient follow up, for definitive care, to return to the emergency department if symptoms worsen or persist or if there are any questions or concerns that arise at home. Response to treatment: the patient's symptoms have markedly improved after treatment. Special discussion: I have referred the patient to see his PCP for further evaluation of high blood pressure. Based on the history and exam findings, there is no indication for further emergent testing or inpatient evaluation. I discussed with the patient/guardian the need to see the ENT specialist for further evaluation of the symptoms. I discussed with the patient/guardian the need to see the primary care provider for further evaluation of the symptoms. 16:45 ED course: concern for mastoiditis, will treat and have pt f/u with ENT.. snw 17:06 ED course: vancomycin and last of IVF infusing. Spouse at bedside. recommendation for snw baby asa daily, continued vitamin and zyrtec and pepcid discussed with patient and visitor. They voice understanding. 04/26 13:09 Order name: Urinalysis w/ reflexes; Complete Time: 15:32 snw 04/26 13:09 Order name: Test, Serum; Complete Time: 15:39 snw 04/26 13:09 Order name: Procalcitonin; Complete Time: 14:55 snw 04/26 13:09 Order name: COVID-19 SARS RT PCR sn 04/26 13:47 Order name: SARS-COV-2 RT PCR; Complete Time: 14:22 EDNC 04/26 13:49 Order name: Lactate w/ 2H reflex if indic.; Complete Time: 14:14 EDMS 04/26 13:51 Order name: Influenza Screen (A ; Complete Time: 14:05 [facility] 04/26 13:53 Order name: Group A Streptococcus Rapid Sc EDNC 04/26 13:54 Order name: Blood Culture [facility] 04/26 13:56 Order name: Blood Culture [facility] 04/26 13:58 Order name: Comprehensive Metabolic Panel; Complete Time: 14:19 [facility] 04/26 13:58 Order name: Protime (+INR) EDNC 04/26 13:58 Order name: PTT, Activated Partial Thromb EDNC 04/26 13:58 Order name: CBC with Automated Diff; Complete Time: 14:17 [facility] 04/26 14:09 Order name: Throat Culture [facility] 04/26 13:09 Order name: Chest Single View XRAY; Complete Time: 15:03 snw 04/26 13:09 Order name: EKG; Complete Time: 13:58 snw 04/26 13:09 Order name: Accucheck; Complete Time: 16:46 snw 04/26 13:09 Order name: Cardiac monitoring; Complete Time: 13:59 snw 04/26 13:09 Order name: EKG - Nurse/Tech; Complete Time: 15:31 snw 04/26 13:09 Order name: IV Saline Lock - Large Bore; Complete Time: 13:59 snw 04/26 13:09 Order name: Labs collected and sent; Complete Time: 13:59 snw 04/26 13:09 Order name: O2 Per Protocol; Complete Time: 13:59 snw 04/26 13:09 Order name: O2 Sat Monitoring; Complete Time: 13:59 snw 04/26 13:09 Order name: Vital Signs; Complete Time: 13:59 snw EC:00 Rate is 108 beats/min. Rhythm is regular. QRS [place] is Normal. MD interval is normal. snw QRS interval is normal. Clinical impression: Sinus tachycardia. Administered Medications: 13:20 Drug: NS 0.9% IV (30 ml/kg) 30 ml/kg Route: IV; Rate: bolus; Site: right antecubital; nj1 18:30 Follow up: Response: No adverse reaction; IV Status: Completed infusion; IV Intake: nj1 3000ml 13:55 Drug: HYDROmorphone IM 1 mg Route: IM; Site: right gluteus; nj1 15:00 Follow up: Response: No adverse reaction; Pain is decreased nj1 15:42 Drug: Rocephin IV 1 grams Route: IV; Rate: calculated rate; Site: right antecubital; nj1 16:00 Follow up: Response: No adverse reaction; IV Status: Completed infusion; IV Intake: nj1 100ml 15:46 Drug: Potassium PO Effervescent Tablet 50 mEq Route: PO; nj1 16:00 Follow up: Response: No adverse reaction nj1 16:04 Drug: vancoMYCIN IVPB 1.5 grams Route: IVPB; Rate: calculated rate; Site: right nj1 antecubital; 18:40 Follow up: Response: No adverse reaction; IV Status: Completed infusion; IV Intake: nj1 250ml 17:55 Drug: HYDROmorphone IVP 1 mg Route: IVP; Site: right antecubital; iw 18:39 Follow up: Response: No adverse reaction; Pain is decreased iw 18:05 Drug: Decadron - Dexamethasone IVP 10 mg Route: IVP; Site: right antecubital; iw 18:39 Follow up: Response: No adverse reaction iw Disposition Summary: 04/26/23 16:35 Discharge Ordered Location: Home snw Condition: Stable snw Diagnosis - Acute mastoiditis snw - Influenza due to other identified influenza virus with other respiratory snw manifestations - flu B - Hypokalemia snw Followup: snw - With: Emergency Department - When: As needed - Reason: Worsening of condition Followup: snw - With: Kasey Anderson MD - When: 2 - 3 days - Reason: Recheck today's complaints, Continuance of care Discharge Instructions: - Discharge Summary Sheet snw - Potassium Content of Foods snw - Otitis Externa snw - Influenza, Adult snw - Mastoiditis, Pediatric snw - Hypokalemia snw - Rehydration, Adult snw Forms: - Work release form snw - Medication Reconciliation Form snw - Thank You Letter snw - Antibiotic Education snw - Prescription Opioid Use snw - Patient Portal [email or web address] snw Prescriptions: - cefdinir 300 mg Oral capsule - take 1 capsule by ORAL route every 12 hours for 14 days; 28 capsule; Refills: snw 0, Product Selection Permitted - Cortisporin-TC 3.3-3-10-0.5 mg/mL Otic drops,suspension - instill 4 drops by OTIC route every 6 hours to right ear canal; 1 Unspecified; snw Refills: 0, Product Selection Permitted - Mobic 7.5 mg Oral Tablet - take 1 tablet by ORAL route once daily take with food; 20 tablet; Refills: 0, snw Product Selection Permitted Signatures: Dispatcher [employer] EDMS Laine Esteban, ASSEMBLY TECHNICIAN-C ASSEMBLY TECHNICIAN-Csnw Loretta Monsivais, TOMER RN Marycruz Gerber RN RN Sravani Fajardo, RN RN nj1 Corrections: (The following items were deleted from the chart) 14:12 13:58 Calcitonin Level ordered. EDMS EDMS 14:13 13:58 BLOOD CULTURE*+BA.LAB.BRZ ordered. EDMS EDMS 14:14 13:58 Influenza Screen (A \T\ B)+BA.LAB.BRZ ordered. EDMS EDMS 14:14 13:58 Group A Streptococcus Rapid Sc+BA.LAB.BRZ ordered. EDMS EDMS 14:16 13:58 Test, Urine ordered. EDMS EDMS 14:16 13:58 COMPREHENSIVE METABOLIC PANEL+C.LAB.BRZ ordered. EDMS EDMS 14:16 13:58 CREATINE PHOSPHOKINASE+C.LAB.BRZ ordered. EDMS EDMS 14:17 13:58 CBC+H.LAB.BRZ ordered. EDMS EDMS 14:17 13:58 LACTATE+C.LAB.BRZ ordered. EDMS EDMS 14:17 13:58 PROTIME (+INR)+COAG.LAB.BRZ ordered. EDMS EDMS 14:17 13:58 PTT, ACTIVATED+COAG.LAB.BRZ ordered. EDMS EDMS
[2023-04-26] MEDS ORDERED: dexAMETHasone 10 MG/ML VIAL ONE (17:49)
[2023-04-26 20:18] VITALS: TEMP 98.8
[2023-04-26 20:41] VITALS: BP 141/90; O2SAT 99
[2023-04-26 22:26] LABS: Protime INR ND
--- NOTE | 2023-04-27 15:46 | EKG ---
Test Date: 2023-04-26 Test Time: 14:58:45 [employer]: [place] MEASUREMENT RESULTS: Intervals: Rate: 108 AR: 142 QRSD: 94 QT: 342 QTc: 458 [place]: P: 44 AR: 142 QRS: 47 T: 9 INTERPRETIVE STATEMENTS: Sinus tachycardia Otherwise normal ECG No previous ECG available for comparison Electronically Signed On 04-27-23 15:44:26 CDT by Mg Pereira
== END 2023-04-26 18:59 | disposition home or self-care (01) ==
LOC: ER 12:41
DX: J10.1 Influenza due to other identified influenza virus with other respiratory manifestations (principal); H70.001 Acute mastoiditis without complications, right ear; E87.6 Hypokalemia; Z20.822 Contact with and (suspected) exposure to COVID-19
CPT/HCPCS: 87040 ×2; 87070; 85025; 36415; 84703; 85610; 87081; 83605; 81003; 80053; 84145; 87635; 87804 ×2; 71045; J1100; J1170 ×4; J2405; J7050; J7030 ×3; J0696; 93005